=== PATIENT | female | born 1950 | race Caucasian/White ===

== ENCOUNTER 2024-11-24 12:44 | Inpatient (IN) | payer MEDICARE, SELFPAY ==
[2024-11-24] VITALS (7 sets, daily range): BP systolic 106–122; BP diastolic 66–77; PULSE 80–185; RESP 16–20; TEMP 36.7–38.3; O2SAT 95–99; BMI 38.4
--- NOTE | ~2024-11-24 | CT_ITS ---
EXAMINATION: CT brain wo con DATE: 11/25/2024 14:14 INDICATION: headache, intractable . TECHNIQUE: Computed tomography (CT) of the head was performed without intravenous contrast. The mA wa s adjusted according to patient size. Iterative reconstruction technique was employed. The dose-lengt h product was 605.33 mGy-cm. COMPARISON: None. FINDINGS: No acute intracranial hemorrhage or extra-axial fluid collection. No hydrocephalus, mass, or herniation. No acute ischemic infarct. Unremarkable dural venous sinus attenuation. No acute osseous abnormality. Pansinus mucosal thickening. The mastoid air cells are clear. Intracranial arterial calcification. Early right basal ganglia calcification. Mild chronic white momo er change IMPRESSION: No acute intracranial process. Pansinus mucoperiosteal disease. Reviewed, dictated and finalized at location K.
--- NOTE | ~2024-11-24 | XR_ITS ---
XR chest 2V 11/24/2024 14:25 Indication: Fever Procedure: 2 view chest Comparison: No prior studies for comparison. Findings: Left basilar airspace disease, compatible with pneumonia. No pleural effusion. Heart size n ormal. Right lung clear. No acute osseous abnormality. Impression: 1: Left basilar airspace disease, compatible with pneumonia. Reviewed, dictated and finalized at location A. Impression: 1: Left basilar airspace disease, compatible with pneumonia.
--- NOTE | 2024-11-24 13:09 | ECG_ITS ---
Test Date: 2024-11-24 13:11:10 Measurements Intervals [place] Rate: 184 P: 0 MI: 0 QRS: -20 QRSD: 82 T: 59 QT: 254 QTc: 444 Interpretive Statements SUPRAVENTRICULAR TACHYCARDIA MODERATE ST DEPRESSION [0.05+ mV ST DEPRESSION] No previous ECG available for comparison Electronically Signed On 11-24-2024 19:14:33 CDT by Priya Elder
--- NOTE | 2024-11-24 13:25 | ED.GENADULT ---
HPI - General Adult General Chief complaint: Fever Stated complaint: Chills, cough, high BP, fever sick since Wednesday Time Seen by Provider: 11/24/24 13:24 History of Present Illness HPI narrative: [age] old female presented to the emergency department for evaluation for increased generalized weakness and feeling ill since Wednesday. Patient reports that her symptoms started as sinus symptoms but did have some associated cough congestion and weakness. Patient denies any nausea vomiting diarrhea or abdominal pain. Patient arrived and did have a heart rate of 185 the EKG showed was SVT. Patient denies any associated chest pain. Patient did take some Desi D and [place] nighttime medication last night. Related Data Home Medications ?Medication ?Instructions ?Recorded ?Confirmed ?Last Taken ?Type atorvastatin 40 mg tablet 40 mg PO DAILY 11/24/24 11/24/24 11/23/24 History citalopram 20 mg tablet 20 mg PO DAILY 11/24/24 11/24/24 11/23/24 History levothyroxine 75 mcg tablet 75 mcg PO DAILY 11/24/24 11/24/24 11/23/24 History metoprolol succinate 25 mg 25 mg PO DAILY 11/24/24 11/24/24 11/23/24 History tablet,extended release 24 hr polyethylene glycol 3350 17 17 g PO DAILY PRN constipation 11/24/24 11/24/24 Unknown History gram/dose oral powder (Miralax) semaglutide 2 mg/dose (8 mg/3 mL) 2 mg subcut WEEKLY 11/24/24 11/24/24 11/19/24 History subcutaneous pen injector (Ozempic) spironolactone 25 mg tablet 25 mg PO DAILY 11/24/24 11/24/24 11/23/24 History torsemide 10 mg tablet 10 mg PO DAILY PRN swelling/weight 11/24/24 11/24/24 Unknown History gain Allergies Allergy/AdvReac Type Severity Reaction Status Date / Time metformin Allergy Intermediate Vomiting Verified 11/24/24 18:36 Review of Systems Review of Systems: All systems reviewed & are unremarkable except as noted in HPI and below PMFSH Family History Family History (Updated 11/24/24 @ 18:45 by Veronica Perdomo RN) Mother Cervical cancer Father Heart failure Other Cancer Social History Social History Smoking status: Former smoker Alcohol intake: current Drinks per week: 1 Substance use: never Substance use type: does not use Do You Feel Safe in your Home?: Yes Lack of Transportation: No Lack of Food: Never True Current Housing: I Have Housing Concerned About Future Housing: No Difficulty Paying Gas/Electric Bills: No Difficulty Paying for Meds: No Currently Unemployed: No Education: High School Diploma/GED Difficulty w/ Childcare or Family Care: No Spiritual care concerns: No Exam Narrative: APPEARANCE: Ill-appearing HEAD: normocephalic, atraumatic. EYES: PERRLA/EOMI, conjunctivae clear. NOSE: Normal no drainage EARS:TMS clear with good light reflex. THROAT: Pharynx clear, no exudate. NECK: Supple. No adenopathy, no masses. RESPIRATORY: Airway patent, respirations nonlabored. Clear to auscultation bilaterally, no rales, rhonchi, wheezing. CARDIOVASCULAR: Arrived in SVT converted to sinus tach and improved to normal sinus with rehydration ABDOMINAL: Soft, nontender, nondistended, normal bowel sounds MUSCULOSKELETAL: Moves all extremities. Strength/ROM intact, No edema, No calf tenderness. NEURO: Alert. Cranial nerves II through XII intact. Good gait. Good coordination SKIN: Warm, dry. Normal Color Course Vital Signs Vital signs: Vital Signs Temperature 100.9 F H 11/24/24 13:00 Pulse Rate 185 H 11/24/24 13:00 Respiratory Rate 20 11/24/24 13:00 Blood Pressure 106/71 11/24/24 13:00 Pulse Oximetry 95 11/24/24 13:00 Temperature 98.0 F 11/24/24 17:45 Pulse Rate 92 11/24/24 18:38 Respiratory Rate 20 11/24/24 18:38 Blood Pressure 119/66 11/24/24 18:38 Pulse Oximetry 97 11/24/24 18:38 Oxygen Flow Rate 2 11/24/24 13:34 Procedures Other Procedure Procedure 1: Other Procedure: Procedure Performed: Modified Valsalva maneuver to treat paroxysmal supraventricular tachycardia (SVT).? Indications: Patient presenting with symptomatic SVT (heart rate 185)? Preparation:?Baseline 12-lead ECG obtained, Patient explained the procedure and risks/benefits, and ECG monitoring initiated.? Procedure: Patient placed in semi-recumbent position.? Instructed patient to exhale forcefully against a closed airway (blowing into a 10 cc syringe) for 15 seconds.? Patient immediately repositioned supine with legs raised to 45 degrees for 15 seconds.? Patient returned to semi-recumbent position for 45 seconds.? Outcome:? Initial ECG showed SVT. After the maneuver, patient's heart rate converted to 110 and ECG showed sinus tach Patient tolerated the procedure well, no complaints. Medical Decision Making MDM Narrative Medical decision making narrative: [age] old female presents emergency department for evaluation for fever and rapid heart rate. Patient was found to be in SVT and was converted back to sinus tachycardia with a modified Valsalva. Patient was treated with a L of IV fluids and patient's heart rate continued to improve. Patient's fever was treated with p.o. Tylenol. Blood cultures were ordered. Patient has a leukocytosis of 14.3 and a stable hemoglobin of 14.1. INR is 1.0. Patient does have a creatinine of 1.17 lactic acid of 1.7. Unknown what patient's baseline creatinine is but suspect SHANTELL. With no acute elevations in T bili AST ALT or alk phos. CRP is mildly elevated at 3.1. Thyroid is normal. Patient's urine is significant for urinary tract infection but does have many squamous cells. Patient was negative for influenza RSV and for COVID. Patient's x-ray is concerning for underlying pneumonia. Patient was started on Rocephin and a azithromycin the emergency department. This will cover both the potential urinary tract infection and the pneumonia. On re-evaluation patient states she does feel improved but patient is still ill appearing. Patient was willing to stay for IV antibiotics and further rehydration. Differential Diagnosis Differential Diagnosis: SVT, sinus tachycardia, AFib, dehydration, pneumonia, urinary tract infection, COVID, RSV, influenza, fever Vital Signs Vital Signs: Vital Signs Temperature 100.9 F H 11/24/24 13:00 Pulse Rate 185 H 11/24/24 13:00 Respiratory Rate 20 11/24/24 13:00 Blood Pressure 106/71 11/24/24 13:00 Pulse Oximetry 95 11/24/24 13:00 Temperature 98.0 F 11/24/24 17:45 Pulse Rate 92 11/24/24 18:38 Respiratory Rate 20 11/24/24 18:38 Blood Pressure 119/66 11/24/24 18:38 Pulse Oximetry 97 11/24/24 18:38 Oxygen Flow Rate 2 11/24/24 13:34 Lab Data 11/24/24 13:37 11/24/24 13:37 Labs: Lab Results 11/24/24 11/24/24 11/24/24 Range/Units 13:37 13:37 13:37 WBC 14.3 H (4.5-10.0) K/mm3 RBC 4.89 (4.2-5.4) M/mm3 Hgb 14.1 (12.0-15.0) g/dL Hct 42.9 (37.0-47.0) % MCV 87.7 (80-100) fl MCH 28.8 (26-34) pg MCHC 32.9 (32-36) g/dl RDW 13.8 (11.5-14.5) % Plt Count 235 (150-375) k/mm3 MPV 10.4 (7.4-10.4) fl Immature Gran % (Auto) 0.3 (0-0.5) % Neut % (Auto) 81.5 H (45.5-73.1) % Lymph % (Auto) 12.6 L (18.3-44.2) % [place] % (Auto) 4.7 (2.6-8.5) % Eos % (Auto) 0.6 (0-4.4) % Baso % (Auto) 0.3 (0.2-1.2) % Lymph # (Auto) 1.80 (0.9-3.2) K/mm3 [place] # (Auto) 0.7 H (0.1-0.6) K/mm3 Eos # (Auto) 0.1 (0-0.3) K/mm3 Baso # (Auto) 0.1 (0.0-0.1) K/mm3 Abs Immat Gran (auto) 0.05 H (0.00-0.031) K/mm3 Absolute Neuts (auto) 11.7 H (1.3-6.7) K/mm3 Absolute Nucleated RBC 0.000 (0.0-0.012) K/mm3 Nucleated RBC % 0.0 (0.0-0.2) % PT 13.8 (11.1-14.7) Seconds INR 1.0 APTT 32.1 (22.3-36.8) Seconds Sodium 137 137 (137-145) mmol/L Potassium 4.4 4.4 (3.4-5.0) mmol/L Chloride 103 (98-107) mmol/L Carbon Dioxide (22-30) mmol/L Anion Gap (4-12) mmol/L BUN (7-17) mg/dL Creatinine (0.7-1.0) mg/dL Estim Creat Clear Calc ml/min Estimated GFR (59 - ) Glucose (65-110) mg/dL Lactic Acid (0.7-2.0) mmol/L Calcium (8.4-10.2) mg/dL Magnesium (1.6-2.3) mg/dL Total Bilirubin (0.2-1.3) mg/dL AST (14-36) U/L ALT (6-35) U/L Alkaline Phosphatase (38-126) U/L C-Reactive Protein (<1.0) mg/dL NT-Pro-B Natriuret Pep (19.9-100) pg/mL Total Protein (6.3-8.2) g/dL Albumin (3.5-5.1) g/dL TSH (Reflex) (0.465-4.68) uIU/mL Urine Color (Yellow) Urine Appearance (Clear) Urine pH (5.0-9.0) Ur Specific [place] (1.001-1.035) Urine Protein (Negative) mg/dL Urine Glucose (UA) (Negative) mg/dL Urine Ketones (Negative) mg/dL Ur Blood (Man) (Negative) Urine Nitrate (Negative) Urine Bilirubin (Negative) Urine Urobilinogen (<2.0) mg/dL Leukocyte Esterase Rfl (Negative) LOCO/UL Urine RBC (0-2) /hpf Urine WBC (0-3) /hpf Ur Squamous Epith Cells (Few) /hpf Urine Bacteria /hpf Urine Casts Influenza A (RT-PCR) (Negative) Influenza B (RT-PCR) (Negative) RSV (RT-PCR) (Negative) SARS-CoV-2 RNA (RT-PCR) (Negative) 11/24/24 11/24/24 11/24/24 Range/Units 13:37 13:37 13:37 WBC (4.5-10.0) K/mm3 RBC (4.2-5.4) M/mm3 Hgb (12.0-15.0) g/dL Hct (37.0-47.0) % MCV (80-100) fl MCH (26-34) pg MCHC (32-36) g/dl RDW (11.5-14.5) % Plt Count (150-375) k/mm3 MPV (7.4-10.4) fl Immature Gran % (Auto) (0-0.5) % Neut % (Auto) (45.5-73.1) % Lymph % (Auto) (18.3-44.2) % [place] % (Auto) (2.6-8.5) % Eos % (Auto) (0-4.4) % Baso % (Auto) (0.2-1.2) % Lymph # (Auto) (0.9-3.2) K/mm3 [place] # (Auto) (0.1-0.6) K/mm3 Eos # (Auto) (0-0.3) K/mm3 Baso # (Auto) (0.0-0.1) K/mm3 Abs Immat Gran (auto) (0.00-0.031) K/mm3 Absolute Neuts (auto) (1.3-6.7) K/mm3 Absolute Nucleated RBC (0.0-0.012) K/mm3 Nucleated RBC % (0.0-0.2) % PT (11.1-14.7) Seconds INR APTT (22.3-36.8) Seconds Sodium (137-145) mmol/L Potassium (3.4-5.0) mmol/L Chloride 103 (98-107) mmol/L Carbon Dioxide 20 L 20 L (22-30) mmol/L Anion Gap 14 H 14 H (4-12) mmol/L BUN 17 (7-17) mg/dL Creatinine (0.7-1.0) mg/dL Estim Creat Clear Calc ml/min Estimated GFR (59 - ) Glucose (65-110) mg/dL Lactic Acid (0.7-2.0) mmol/L Calcium (8.4-10.2) mg/dL Magnesium (1.6-2.3) mg/dL Total Bilirubin (0.2-1.3) mg/dL AST (14-36) U/L ALT (6-35) U/L Alkaline Phosphatase (38-126) U/L C-Reactive Protein (<1.0) mg/dL NT-Pro-B Natriuret Pep (19.9-100) pg/mL Total Protein (6.3-8.2) g/dL Albumin (3.5-5.1) g/dL TSH (Reflex) (0.465-4.68) uIU/mL Urine Color (Yellow) Urine Appearance (Clear) Urine pH (5.0-9.0) Ur Specific [place] (1.001-1.035) Urine Protein (Negative) mg/dL Urine Glucose (UA) (Negative) mg/dL Urine Ketones (Negative) mg/dL Ur Blood (Man) (Negative) Urine Nitrate (Negative) Urine Bilirubin (Negative) Urine Urobilinogen (<2.0) mg/dL Leukocyte Esterase Rfl (Negative) LOCO/UL Urine RBC (0-2) /hpf Urine WBC (0-3) /hpf Ur Squamous Epith Cells (Few) /hpf Urine Bacteria /hpf Urine Casts Influenza A (RT-PCR) (Negative) Influenza B (RT-PCR) (Negative) RSV (RT-PCR) (Negative) SARS-CoV-2 RNA (RT-PCR) (Negative) 11/24/24 11/24/24 11/24/24 Range/Units 13:37 13:37 13:37 WBC (4.5-10.0) K/mm3 RBC (4.2-5.4) M/mm3 Hgb (12.0-15.0) g/dL Hct (37.0-47.0) % MCV (80-100) fl MCH (26-34) pg MCHC (32-36) g/dl RDW (11.5-14.5) % Plt Count (150-375) k/mm3 MPV (7.4-10.4) fl Immature Gran % (Auto) (0-0.5) % Neut % (Auto) (45.5-73.1) % Lymph % (Auto) (18.3-44.2) % [place] % (Auto) (2.6-8.5) % Eos % (Auto) (0-4.4) % Baso % (Auto) (0.2-1.2) % Lymph # (Auto) (0.9-3.2) K/mm3 [place] # (Auto) (0.1-0.6) K/mm3 Eos # (Auto) (0-0.3) K/mm3 Baso # (Auto) (0.0-0.1) K/mm3 Abs Immat Gran (auto) (0.00-0.031) K/mm3 Absolute Neuts (auto) (1.3-6.7) K/mm3 Absolute Nucleated RBC (0.0-0.012) K/mm3 Nucleated RBC % (0.0-0.2) % PT (11.1-14.7) Seconds INR APTT (22.3-36.8) Seconds Sodium (137-145) mmol/L Potassium (3.4-5.0) mmol/L Chloride (98-107) mmol/L Carbon Dioxide (22-30) mmol/L Anion Gap (4-12) mmol/L BUN 17 (7-17) mg/dL Creatinine 1.17 H 1.17 H (0.7-1.0) mg/dL Estim Creat Clear Calc 47 47 ml/min Estimated GFR 45 L (59 - ) Glucose (65-110) mg/dL Lactic Acid (0.7-2.0) mmol/L Calcium (8.4-10.2) mg/dL Magnesium (1.6-2.3) mg/dL Total Bilirubin (0.2-1.3) mg/dL AST (14-36) U/L ALT (6-35) U/L Alkaline Phosphatase (38-126) U/L C-Reactive Protein (<1.0) mg/dL NT-Pro-B Natriuret Pep (19.9-100) pg/mL Total Protein (6.3-8.2) g/dL Albumin (3.5-5.1) g/dL TSH (Reflex) (0.465-4.68) uIU/mL Urine Color (Yellow) Urine Appearance (Clear) Urine pH (5.0-9.0) Ur Specific [place] (1.001-1.035) Urine Protein (Negative) mg/dL Urine Glucose (UA) (Negative) mg/dL Urine Ketones (Negative) mg/dL Ur Blood (Man) (Negative) Urine Nitrate (Negative) Urine Bilirubin (Negative) Urine Urobilinogen (<2.0) mg/dL Leukocyte Esterase Rfl (Negative) LOCO/UL Urine RBC (0-2) /hpf Urine WBC (0-3) /hpf Ur Squamous Epith Cells (Few) /hpf Urine Bacteria /hpf Urine Casts Influenza A (RT-PCR) (Negative) Influenza B (RT-PCR) (Negative) RSV (RT-PCR) (Negative) SARS-CoV-2 RNA (RT-PCR) (Negative) 11/24/24 11/24/24 11/24/24 Range/Units 13:37 13:37 13:37 WBC (4.5-10.0) K/mm3 RBC (4.2-5.4) M/mm3 Hgb (12.0-15.0) g/dL Hct (37.0-47.0) % MCV (80-100) fl MCH (26-34) pg MCHC (32-36) g/dl RDW (11.5-14.5) % Plt Count (150-375) k/mm3 MPV (7.4-10.4) fl Immature Gran % (Auto) (0-0.5) % Neut % (Auto) (45.5-73.1) % Lymph % (Auto) (18.3-44.2) % [place] % (Auto) (2.6-8.5) % Eos % (Auto) (0-4.4) % Baso % (Auto) (0.2-1.2) % Lymph # (Auto) (0.9-3.2) K/mm3 [place] # (Auto) (0.1-0.6) K/mm3 Eos # (Auto) (0-0.3) K/mm3 Baso # (Auto) (0.0-0.1) K/mm3 Abs Immat Gran (auto) (0.00-0.031) K/mm3 Absolute Neuts (auto) (1.3-6.7) K/mm3 Absolute Nucleated RBC (0.0-0.012) K/mm3 Nucleated RBC % (0.0-0.2) % PT (11.1-14.7) Seconds INR APTT (22.3-36.8) Seconds Sodium (137-145) mmol/L Potassium (3.4-5.0) mmol/L Chloride (98-107) mmol/L Carbon Dioxide (22-30) mmol/L Anion Gap (4-12) mmol/L BUN (7-17) mg/dL Creatinine (0.7-1.0) mg/dL Estim Creat Clear Calc ml/min Estimated GFR 45 L (59 - ) Glucose 131 H 131 H (65-110) mg/dL Lactic Acid 1.7 (0.7-2.0) mmol/L Calcium 9.6 9.6 (8.4-10.2) mg/dL Magnesium (1.6-2.3) mg/dL Total Bilirubin 1.0 (0.2-1.3) mg/dL AST (14-36) U/L ALT (6-35) U/L Alkaline Phosphatase (38-126) U/L C-Reactive Protein (<1.0) mg/dL NT-Pro-B Natriuret Pep (19.9-100) pg/mL Total Protein (6.3-8.2) g/dL Albumin (3.5-5.1) g/dL TSH (Reflex) (0.465-4.68) uIU/mL Urine Color (Yellow) Urine Appearance (Clear) Urine pH (5.0-9.0) Ur Specific [place] (1.001-1.035) Urine Protein (Negative) mg/dL Urine Glucose (UA) (Negative) mg/dL Urine Ketones (Negative) mg/dL Ur Blood (Man) (Negative) Urine Nitrate (Negative) Urine Bilirubin (Negative) Urine Urobilinogen (<2.0) mg/dL Leukocyte Esterase Rfl (Negative) LOCO/UL Urine RBC (0-2) /hpf Urine WBC (0-3) /hpf Ur Squamous Epith Cells (Few) /hpf Urine Bacteria /hpf Urine Casts Influenza A (RT-PCR) (Negative) Influenza B (RT-PCR) (Negative) RSV (RT-PCR) (Negative) SARS-CoV-2 RNA (RT-PCR) (Negative) 11/24/24 11/24/24 11/24/24 Range/Units 13:37 13:37 13:37 WBC (4.5-10.0) K/mm3 RBC (4.2-5.4) M/mm3 Hgb (12.0-15.0) g/dL Hct (37.0-47.0) % MCV (80-100) fl MCH (26-34) pg MCHC (32-36) g/dl RDW (11.5-14.5) % Plt Count (150-375) k/mm3 MPV (7.4-10.4) fl Immature Gran % (Auto) (0-0.5) % Neut % (Auto) (45.5-73.1) % Lymph % (Auto) (18.3-44.2) % [place] % (Auto) (2.6-8.5) % Eos % (Auto) (0-4.4) % Baso % (Auto) (0.2-1.2) % Lymph # (Auto) (0.9-3.2) K/mm3 [place] # (Auto) (0.1-0.6) K/mm3 Eos # (Auto) (0-0.3) K/mm3 Baso # (Auto) (0.0-0.1) K/mm3 Abs Immat Gran (auto) (0.00-0.031) K/mm3 Absolute Neuts (auto) (1.3-6.7) K/mm3 Absolute Nucleated RBC (0.0-0.012) K/mm3 Nucleated RBC % (0.0-0.2) % PT (11.1-14.7) Seconds INR APTT (22.3-36.8) Seconds Sodium (137-145) mmol/L Potassium (3.4-5.0) mmol/L Chloride (98-107) mmol/L Carbon Dioxide (22-30) mmol/L Anion Gap (4-12) mmol/L BUN (7-17) mg/dL Creatinine (0.7-1.0) mg/dL Estim Creat Clear Calc ml/min Estimated GFR (59 - ) Glucose (65-110) mg/dL Lactic Acid (0.7-2.0) mmol/L Calcium (8.4-10.2) mg/dL Magnesium (1.6-2.3) mg/dL Total Bilirubin 1.0 (0.2-1.3) mg/dL AST 25 25 (14-36) U/L ALT 25 25 (6-35) U/L Alkaline Phosphatase 71 (38-126) U/L C-Reactive Protein (<1.0) mg/dL NT-Pro-B Natriuret Pep (19.9-100) pg/mL Total Protein (6.3-8.2) g/dL Albumin (3.5-5.1) g/dL TSH (Reflex) (0.465-4.68) uIU/mL Urine Color (Yellow) Urine Appearance (Clear) Urine pH (5.0-9.0) Ur Specific [place] (1.001-1.035) Urine Protein (Negative) mg/dL Urine Glucose (UA) (Negative) mg/dL Urine Ketones (Negative) mg/dL Ur Blood (Man) (Negative) Urine Nitrate (Negative) Urine Bilirubin (Negative) Urine Urobilinogen (<2.0) mg/dL Leukocyte Esterase Rfl (Negative) LOCO/UL Urine RBC (0-2) /hpf Urine WBC (0-3) /hpf Ur Squamous Epith Cells (Few) /hpf Urine Bacteria /hpf Urine Casts Influenza A (RT-PCR) (Negative) Influenza B (RT-PCR) (Negative) RSV (RT-PCR) (Negative) SARS-CoV-2 RNA (RT-PCR) (Negative) 11/24/24 11/24/24 11/24/24 Range/Units 13:37 13:37 13:37 WBC (4.5-10.0) K/mm3 RBC (4.2-5.4) M/mm3 Hgb (12.0-15.0) g/dL Hct (37.0-47.0) % MCV (80-100) fl MCH (26-34) pg MCHC (32-36) g/dl RDW (11.5-14.5) % Plt Count (150-375) k/mm3 MPV (7.4-10.4) fl Immature Gran % (Auto) (0-0.5) % Neut % (Auto) (45.5-73.1) % Lymph % (Auto) (18.3-44.2) % [place] % (Auto) (2.6-8.5) % Eos % (Auto) (0-4.4) % Baso % (Auto) (0.2-1.2) % Lymph # (Auto) (0.9-3.2) K/mm3 [place] # (Auto) (0.1-0.6) K/mm3 Eos # (Auto) (0-0.3) K/mm3 Baso # (Auto) (0.0-0.1) K/mm3 Abs Immat Gran (auto) (0.00-0.031) K/mm3 Absolute Neuts (auto) (1.3-6.7) K/mm3 Absolute Nucleated RBC (0.0-0.012) K/mm3 Nucleated RBC % (0.0-0.2) % PT (11.1-14.7) Seconds INR APTT (22.3-36.8) Seconds Sodium (137-145) mmol/L Potassium (3.4-5.0) mmol/L Chloride (98-107) mmol/L Carbon Dioxide (22-30) mmol/L Anion Gap (4-12) mmol/L BUN (7-17) mg/dL Creatinine (0.7-1.0) mg/dL Estim Creat Clear Calc ml/min Estimated GFR (59 - ) Glucose (65-110) mg/dL Lactic Acid (0.7-2.0) mmol/L Calcium (8.4-10.2) mg/dL Magnesium (1.6-2.3) mg/dL Total Bilirubin (0.2-1.3) mg/dL AST (14-36) U/L ALT (6-35) U/L Alkaline Phosphatase 71 (38-126) U/L C-Reactive Protein 3.1 H (<1.0) mg/dL NT-Pro-B Natriuret Pep (19.9-100) pg/mL Total Protein 7.3 7.0 (6.3-8.2) g/dL Albumin 4.5 4.5 (3.5-5.1) g/dL TSH (Reflex) 2.720 (0.465-4.68) uIU/mL Urine Color (Yellow) Urine Appearance (Clear) Urine pH (5.0-9.0) Ur Specific [place] (1.001-1.035) Urine Protein (Negative) mg/dL Urine Glucose (UA) (Negative) mg/dL Urine Ketones (Negative) mg/dL Ur Blood (Man) (Negative) Urine Nitrate (Negative) Urine Bilirubin (Negative) Urine Urobilinogen (<2.0) mg/dL Leukocyte Esterase Rfl (Negative) LOCO/UL Urine RBC (0-2) /hpf Urine WBC (0-3) /hpf Ur Squamous Epith Cells (Few) /hpf Urine Bacteria /hpf Urine Casts Influenza A (RT-PCR) Negative (Negative) Influenza B (RT-PCR) Negative (Negative) RSV (RT-PCR) Negative (Negative) SARS-CoV-2 RNA (RT-PCR) Negative (Negative) 11/24/24 11/24/24 Range/Units 13:41 15:23 WBC (4.5-10.0) K/mm3 RBC (4.2-5.4) M/mm3 Hgb (12.0-15.0) g/dL Hct (37.0-47.0) % MCV (80-100) fl MCH (26-34) pg MCHC (32-36) g/dl RDW (11.5-14.5) % Plt Count (150-375) k/mm3 MPV (7.4-10.4) fl Immature Gran % (Auto) (0-0.5) % Neut % (Auto) (45.5-73.1) % Lymph % (Auto) (18.3-44.2) % [place] % (Auto) (2.6-8.5) % Eos % (Auto) (0-4.4) % Baso % (Auto) (0.2-1.2) % Lymph # (Auto) (0.9-3.2) K/mm3 [place] # (Auto) (0.1-0.6) K/mm3 Eos # (Auto) (0-0.3) K/mm3 Baso # (Auto) (0.0-0.1) K/mm3 Abs Immat Gran (auto) (0.00-0.031) K/mm3 Absolute Neuts (auto) (1.3-6.7) K/mm3 Absolute Nucleated RBC (0.0-0.012) K/mm3 Nucleated RBC % (0.0-0.2) % PT (11.1-14.7) Seconds INR APTT (22.3-36.8) Seconds Sodium (137-145) mmol/L Potassium (3.4-5.0) mmol/L Chloride (98-107) mmol/L Carbon Dioxide (22-30) mmol/L Anion Gap (4-12) mmol/L BUN (7-17) mg/dL Creatinine (0.7-1.0) mg/dL Estim Creat Clear Calc ml/min Estimated GFR (59 - ) Glucose (65-110) mg/dL Lactic Acid (0.7-2.0) mmol/L Calcium (8.4-10.2) mg/dL Magnesium 1.8 (1.6-2.3) mg/dL Total Bilirubin (0.2-1.3) mg/dL AST (14-36) U/L ALT (6-35) U/L Alkaline Phosphatase (38-126) U/L C-Reactive Protein (<1.0) mg/dL NT-Pro-B Natriuret Pep 178 H (19.9-100) pg/mL Total Protein (6.3-8.2) g/dL Albumin (3.5-5.1) g/dL TSH (Reflex) (0.465-4.68) uIU/mL Urine Color Yellow (Yellow) Urine Appearance Cloudy H (Clear) Urine pH 5.5 (5.0-9.0) Ur Specific [place] 1.025 (1.001-1.035) Urine Protein Trace (Negative) mg/dL Urine Glucose (UA) Negative (Negative) mg/dL Urine Ketones Trace H (Negative) mg/dL Ur Blood (Man) Negative (Negative) Urine Nitrate Negative (Negative) Urine Bilirubin Negative (Negative) Urine Urobilinogen 1.0 (<2.0) mg/dL Leukocyte Esterase Rfl 3+ H (Negative) LOCO/UL Urine RBC 0-2 (0-2) /hpf Urine WBC 11-20 H (0-3) /hpf Ur Squamous Epith Cells Many H (Few) /hpf Urine Bacteria 4+ H /hpf Urine Casts 3-5 Influenza A (RT-PCR) (Negative) Influenza B (RT-PCR) (Negative) RSV (RT-PCR) (Negative) SARS-CoV-2 RNA (RT-PCR) (Negative) Imaging Data Radiologist's impression: Impressions Chest X-Ray 11/24/24 14:26 Impression: 1: Left basilar airspace disease, compatible with pneumonia. Critical Care Time Critical Care Time Critical Care Time: Yes Total Critical Care Time: 35 Discharge Plan Discharge Clinical Impression: SHANTELL (acute kidney injury), Acute UTI, Sustained SVT Pneumonia Qualifiers: Pneumonia type: due to unspecified organism Laterality: left Lung location: lower lobe of lung Qualified Code(s): J18.9 - Pneumonia, unspecified organism Patient Disposition: Still a Patient Condition: Serious
[2024-11-24] MEDS: SODIUM CHLORIDE 0.9% IV 1,000 ML 999 ML IV CONT (13:27)
[2024-11-24] MEDS: ACETAMINOPHEN 500 MG TABLET 1000 MG PO (13:29)
--- NOTE | 2024-11-24 13:30 | PC.NURSE ---
Dr. Thompson performed valsa maneuver. Pt tolerated well HR decreased to 111
--- NOTE | 2024-11-24 13:34 | ECG_ITS ---
Test Date: 2024-11-24 13:37:54 Measurements Intervals [place] Rate: 113 P: 11 MI: 129 QRS: -11 QRSD: 93 T: 43 QT: 311 QTc: 427 Interpretive Statements SINUS TACHYCARDIA ABNORMAL RHYTHM ECG Compared to ECG 11/24/2024 13:11:10 Supraventricular tachycardia no longer present ST (T wave) deviation no longer present Electronically Signed On 11-24-2024 19:14:52 CDT by Priya Elder
[2024-11-24 13:50] LABS: Basophils Absolute Auto 0.1 K/mm3 (0.0-0.1); Basophils Percent Auto 0.3 % (0.2-1.2); Eosinophils Absolute Auto 0.1 K/mm3 (0-0.3); Eosinophils Percent Auto 0.6 % (0-4.4); Hematocrit 42.9 % (37.0-47.0); Hemoglobin 14.1 g/dL (12.0-15.0); Immature Granulocyte Absolute 0.05 K/mm3 (0.00-0.031); Immature Granulocyte Percent A 0.3 % (0-0.5); Lymphocytes Percent Auto 12.6 % (18.3-44.2); Mean Corpuscular HGB Conc 32.9 g/dl (32-36); Mean Corpuscular Hemoglobin 28.8 pg (26-34); Mean Corpuscular Volume 87.7 fl (80-100); Mean Platelet Volume 10.4 fl (7.4-10.4); Monocytes Absolute Auto 0.7 K/mm3 (0.1-0.6); Monocytes Percent Auto 4.7 % (2.6-8.5); Neutrophils Absolute Auto 11.7 K/mm3 (1.3-6.7); Neutrophils Percent Auto 81.5 % (45.5-73.1); Platelet Count Result 235 k/mm3 (150-375); Red Blood Count 4.89 M/mm3 (4.2-5.4); Red Cell Distribution Width 13.8 % (11.5-14.5); White Blood Count 14.3 K/mm3 (4.5-10.0)
[2024-11-24 14:01] LABS: Prothrombin Time 13.8 Seconds (11.1-14.7)
[2024-11-24 14:01] LABS: Magnesium 1.8 mg/dL (1.6-2.3)
[2024-11-24 14:02] LABS: Partial Thromboplastin Time 32.1 Seconds (22.3-36.8)
[2024-11-24 14:03] LABS: Lactic Acid Reflex 1.7 mmol/L (0.7-2.0)
[2024-11-24 14:05] LABS: Alanine Aminotransferase 25 U/L (6-35); Albumin Level 4.5 g/dL (3.5-5.1); Alkaline Phosphatase 71 U/L (38-126); Anion Gap 14 mmol/L (4-12); Aspartate Amino Transferase 25 U/L (14-36); Blood Urea Nitrogen 17 mg/dL (7-17); CRP 3.1 mg/dL (<1.0); Calcium 9.6 mg/dL (8.4-10.2); Carbon Dioxide 20 mmol/L (22-30); Chloride 103 mmol/L (98-107); Estimated CRCL calculation 47 ml/min; Estimated Glomerular Filt Rate 45; Glucose 131 mg/dL (65-110); Potassium 4.4 mmol/L (3.4-5.0); Sodium 137 mmol/L (137-145)
[2024-11-24 14:17] LABS: NT Pro B Type Natriuretic Pept 178 pg/mL (19.9-100)
[2024-11-24 14:32] LABS: Influenza A QL RT-PCR Negative (Negative); Influenza B QL RT-PCR Negative (Negative); RSV RNA, RT-PCR Negative (Negative); SARS-CoV-2 RNA PCR Negative (Negative)
[2024-11-24 14:46] LABS: Anion Gap 14 mmol/L (4-12); Blood Urea Nitrogen 17 mg/dL (7-17); Carbon Dioxide 20 mmol/L (22-30); Chloride 103 mmol/L (98-107); Estimated CRCL calculation 47 ml/min; Estimated Glomerular Filt Rate 45; Glucose 131 mg/dL (65-110); Potassium 4.4 mmol/L (3.4-5.0); Sodium 137 mmol/L (137-145)
[2024-11-24 14:47] LABS: Alanine Aminotransferase 25 U/L (6-35); Albumin Level 4.5 g/dL (3.5-5.1); Alkaline Phosphatase 71 U/L (38-126); Aspartate Amino Transferase 25 U/L (14-36); Calcium 9.6 mg/dL (8.4-10.2); Total Protein 7.3 g/dL (6.3-8.2)
--- NOTE | 2024-11-24 15:28 | PC.NURSE ---
1515: Pt ambulated to BR with steady gait. UA obtained. Pt states she is feeling much better
[2024-11-24 15:32] LABS: Add Urine Microscopic? YES; Appearance Urine Cloudy (Clear); Bacteria Urine 4+ /hpf; Bilirubin Urine Negative (Negative); Blood Urine Negative (Negative); Color Urine Yellow (Yellow); Glucose Urine UA Negative (Negative); Ketones Urine Trace mg/dL (Negative); Leukocyte Esterase Ur 3+ LEU/UL (Negative); Nitrate Urine Negative (Negative); Protein Urine Trace mg/dL (Negative); RBC Urine 0-2 /hpf (0-2); Specific Grav Ur 1.025 (1.001-1.035); Squamous Epithelial Cell Urine Many /hpf (Few); pH Urine 5.5 (5.0-9.0)
[2024-11-24] MEDS: AZITHROMYCIN 500 MG/NS 250 ML 500 MG/250 ML BAG 250 MG IVPB (17:44)
--- NOTE | 2024-11-24 18:28 | PM.IMHP ---
H&P: HPI History of Present Illness Date/Time: 11/24/24 18:28 Chief Complaint: Weakness, General Malaise Narrative: 74 y/o F with PMH of CHF, HLD, HTN, sleep apnea, diabetes, hypothyroidism, and depression presents here with generalized weakness and general malaise. The patient presents here from home on 11/24 for further evaluation of general malaise and generalized weakness. She reports that she began to feel unwell on Wednesday, 11/21. She reports it was initially sinus symptoms (i.e. congestion, rhinorrhea), scant productive cough, and the generalized weakness. She has taken allergy medications and Esther-Bend without relief. She denies associated nausea, vomiting, diarrhea, abdominal pain, chest pain, urinary symptoms, or shortness of breath. She arrived to the emergency department in SVT in the 180s and with a low-grade fever at 100.9? F. She was able to be converted to sinus rhythm via a modified Valsalva maneuver. She reports no previous history of SVT or dysrhythmia. Initial VS at presentation: 100.9 ? F, HR 185, R 20, 106/71, and 95% on RA. ED workup showed: WBC 14.3, no anemia, normal coags, creatinine 1.17 and GFR 45 (no previous available for comparison), glucose 131, lactic 1.7, BNP 178, CRP 3.1, and UA equivocal (infection versus contaminant). Viral PCR negative. CXR showed a left basilar airspace disease compatible with pneumonia. Initial EKG showed SVT, rate 184, moderate ST depression. Repeat EKG post modified Valsalva showed sinus tachycardia, rate 113, ST deviation no longer present. Awaiting formal reads for EKGs. Review of Systems Review of Systems: All systems reviewed & are unremarkable except as noted in HPI and below PMFSH Past Medical History Medical History History of postoperative nausea and vomiting Depression Hypothyroidism DM2 (diabetes mellitus, type 2) Sleep apnea HTN (hypertension) HLD (hyperlipidemia) CHF (congestive heart failure) Surgical History Surgical History History of surgery on lower extremity jeb placed, right lower extremity History of sinus surgery History of hysterectomy Family History Family History Mother Cervical cancer Father Heart failure Other Cancer Social History Social History Smoking status: Former smoker Alcohol intake: current Drinks per week: 1 Substance use: never Substance use type: does not use Do You Feel Safe in your Home?: Yes Lack of Transportation: No Lack of Food: Never True Current Housing: I Have Housing Concerned About Future Housing: No Difficulty Paying Gas/Electric Bills: No Difficulty Paying for Meds: No Currently Unemployed: No Education: High School Diploma/GED Difficulty w/ Childcare or Family Care: No Spiritual care concerns: No Meds Home Medications and Allergies Home Medications ?Medication ?Instructions ?Recorded ?Confirmed ?Type atorvastatin 40 mg tablet 40 mg PO DAILY 11/24/24 11/24/24 History citalopram 20 mg tablet 20 mg PO DAILY 11/24/24 11/24/24 History levothyroxine 75 mcg tablet 75 mcg PO DAILY 11/24/24 11/24/24 History metoprolol succinate 25 mg 25 mg PO DAILY 11/24/24 11/24/24 History tablet,extended release 24 hr polyethylene glycol 3350 17 17 g PO DAILY PRN constipation 11/24/24 11/24/24 History gram/dose oral powder (Miralax) semaglutide 2 mg/dose (8 mg/3 mL) 2 mg subcut WEEKLY 11/24/24 11/24/24 History subcutaneous pen injector (Ozempic) spironolactone 25 mg tablet 25 mg PO DAILY 11/24/24 11/24/24 History torsemide 10 mg tablet 10 mg PO DAILY PRN swelling/weight 11/24/24 11/24/24 History gain Allergies Allergy/AdvReac Type Severity Reaction Status Date / Time metformin Allergy Intermediate Vomiting Verified 11/24/24 18:36 Vital Signs Vital Signs - 24 hr 11/24/24 13:00 11/24/24 13:34 11/24/24 17:45 Temperature 100.9 F H 98.0 F Pulse Rate 185 H 105 H Respiratory Rate 20 16 18 Blood Pressure 106/71 122/77 Pulse Oximetry 95 99 98 Oxygen Flow Rate 2 Exam Const: General: comfortable and no acute distress Other: , female, elderly, mildly ill-appearing HENMT: Face/Nose/Sinus: Normal nares present Mouth: Yes moist mucous membranes Eyes: General: appearance normal, both eyes and all related structures Sclera: sclerae normal Pupils: Equal, round and reactive pupils present EOM: EOMs intact bilaterally Resp: Effort & Inspection: normal respiratory effort Other: Crackles in the left lung base, no other adventitious lung sounds. Cardio: Rate: regular rate Rhythm: regular rhythm Other: S1-S2 present without murmur, rub, ectopy GI: Other: Abdomen soft, nondistended, nontender. Normoactive bowel sounds in all quadrants. Skin: General skin exam: normal color and no rashes or lesions noted Wounds: no wounds Neuro: Speech: normal speech Motor exam (neuro): 5/5 motor strength present throughout Sensory Exam: normal sensation Other: A&O x4 Extrem: General: normal to inspection Psych: Mental Status: mental status grossly normal Affect: normal affect Other: Good insight judgment, pleasant H&P: Results Labs Labs: Short CBC 11/24/24 Range/Units 13:37 WBC 14.3 H (4.5-10.0) K/mm3 Hgb 14.1 (12.0-15.0) g/dL Hct 42.9 (37.0-47.0) % Plt Count 235 (150-375) k/mm3 BMP 11/24/24 11/24/24 11/24/24 13:37 13:37 13:37 Sodium 137 137 Potassium 4.4 4.4 Chloride 103 Carbon Dioxide BUN Creatinine Glucose Calcium 11/24/24 11/24/24 11/24/24 13:37 13:37 13:37 Sodium Potassium Chloride 103 Carbon Dioxide 20 L 20 L BUN 17 17 Creatinine 1.17 H Glucose Calcium 11/24/24 11/24/24 11/24/24 13:37 13:37 13:37 Sodium Potassium Chloride Carbon Dioxide BUN Creatinine 1.17 H Glucose 131 H 131 H Calcium 9.6 9.6 Liver Function 11/24/24 11/24/24 11/24/24 Range/Units 13:37 13:37 13:37 Total Bilirubin 1.0 1.0 (0.2-1.3) mg/dL AST 25 25 (14-36) U/L ALT 25 (6-35) U/L Alkaline Phosphatase (38-126) U/L Albumin (3.5-5.1) g/dL 11/24/24 11/24/24 11/24/24 Range/Units 13:37 13:37 13:37 Total Bilirubin (0.2-1.3) mg/dL AST (14-36) U/L ALT 25 (6-35) U/L Alkaline Phosphatase 71 71 (38-126) U/L Albumin 4.5 4.5 (3.5-5.1) g/dL Urine 11/24/24 Range/Units 15:23 Urine Color Yellow (Yellow) Urine Appearance Cloudy H (Clear) Urine pH 5.5 (5.0-9.0) Ur Specific [place] 1.025 (1.001-1.035) Urine Protein Trace (Negative) mg/dL Urine Glucose (UA) Negative (Negative) mg/dL Assessment and Plan Assessment and plan (1) Sepsis: Qualifiers: Sepsis acute organ dysfunction status: without acute organ dysfunction Sepsis type: sepsis due to unspecified organism Qualified Code(s): A41.9 - Sepsis, unspecified organism Code(s): A41.9 - Sepsis, unspecified organism Status: Acute Assessment and Plan: - meets SIRS criteria: HR, WBC, temp ill. No hypotension or hypoxia. - lactic acid: 1.7 - 30 mL/kg = 3L, given 1L in ED. Slow transfusion of 2 L at 250 mL/hour. Monitor toleration. - suspected source: Pneumonia, possible UTI - started on ceftriaxone and azithromycin 11/24 - blood cultures drawn on 11/24 - monitor hemodynamic stability and O2 saturation (2) Pneumonia: Qualifiers: Laterality: left Lung location: lower lobe of lung Pneumonia type: due to unspecified organism Qualified Code(s): J18.9 - Pneumonia, unspecified organism Code(s): J18.9 - Pneumonia, unspecified organism Status: Acute Assessment and Plan: - CXR: Left basilar airspace disease, compatible with pneumonia. - started on CAP tx: Ceftriaxone and azithromycin on 11/24 - Viral PCR negative - supportive care: Mucinex abbie, Tylenol p.r.n., Tessalon Perles p.r.n., lozenge p.r.n. - monitor O2 saturation. May use supplemental oxygen to maintain O2 sat greater than 92%, wean as tolerated. (3) Acute UTI: Code(s): N39.0 - Urinary tract infection, site not specified Status: Suspected Assessment and Plan: - UA showed 3+ leuks, 11-20 WBC, 4+ bacteria. However had many epithelial cells. Contaminant versus infection? - UC pending, follow - no previous micro available for review - started on Ceftriaxone on 5/2 - IV fluids - may have mild SHANTELL, no previous renal function available to compare. Monitor. (4) Sustained SVT: Code(s): I47.10 - Supraventricular tachycardia, unspecified Status: Acute Assessment and Plan: - initial EKG showed SVT with moderate ST depression. Patient was converted to sinus tachycardia with a modified Valsalva maneuver in the ER. Repeat EKG showed sinus tach and resolution of ST depression. Awaiting formal reads of EKGs. - magnesium 1.8 - telemetry monitoring - consider Holter monitor at discharge to monitor for recurrent SVT episodes (5) DM2 (diabetes mellitus, type 2): Qualifiers: Diabetes mellitus custodial insulin use: without roving can tender use Diabetes mellitus complication status: without complication Qualified Code(s): E11.9 - Type 2 diabetes mellitus without complications Code(s): E11.9 - Type 2 diabetes mellitus without complications Status: Chronic Assessment and Plan: - hypoglycemia protocol - POC blood glucose ACHS - home medication: Hold Ozempic (NF). - correct regimen ordered - high dose TIDWM, based off BMI - A1C ordered (6) HTN (hypertension): Qualifiers: Hypertension type: primary hypertension Qualified Code(s): I10 - Essential (primary) hypertension Code(s): I10 - Essential (primary) hypertension Status: Chronic Assessment and Plan: - chronic, currently 119/66 - continue home medications: Torsemide, spironolactone, metoprolol - monitor Plan Diet: Heart healthy GI Prophylaxis: Not currently indicated DVT Prophylaxis: Lovenox SQ IV fluids: LR at 250 mL/hour x1 L Lines/Tubes: Peripheral IV Code Status: Full code Quality VTE Prophylaxis VTE prophylaxis: pharmacologic ordered Hospitalist [facility] Advance Care Plan I have confirmed that the patient's Advanced Care Plan is present, code status is documented, or surrogate decision maker is listed in patient medical record.: Yes Medication Reconciliation I have utilized all available resources to obtain, update and review the patients current medications (includes all prescriptions, OTC, herbals, cannabis, and nutritional supplements).: Yes
--- NOTE | 2024-11-24 18:30 | ADMGEN ---
This patient, Talia Cox, was admitted to Medical Room 246-01. Patient/family oriented to hospital policies and general routines including ID bracelet, bed and alarms, visiting hours, pain management, procedures, bathroom and other care routines, personal items, smoking policy, room service/diet, and visiting hours. Information on how to activate the Rapid Response Team has been discussed. Patient/Family are encouraged to report perceived risks to care and to ask questions if they do not understand what they are told or what they should do.
[2024-11-24] MEDS: LACTATED RINGERS 1,000 ML 250 ML IV CONT (18:52)
[2024-11-24] MEDS: KETOROLAC 30 MG/ML VIAL (*BKC) IV PUSH (21:06)
[2024-11-24] MEDS: ACETAMINOPHEN 325 MG TABLET 650 MG PO (21:07)
[2024-11-24] MEDS: guaiFENesin 12 HR 600 MG TABCR PO (21:07)
[2024-11-24] MEDS: diphenhydrAMINE HCl INJ 50 MG/ML VIAL 25 MG IV PUSH (21:07)
[2024-11-24] MEDS: TORSEMIDE 10 MG TABLET PO (21:08)
[2024-11-25] VITALS (10 sets, daily range): BP systolic 107–122; BP diastolic 61–77; PULSE 67–85; RESP 16–18; TEMP 36.6–37.2; O2SAT 96–98
[2024-11-25 05:15] LABS: Basophils Percent Auto 0.2 % (0.2-1.2); Eosinophils Absolute Auto 0.4 K/mm3 (0-0.3); Eosinophils Percent Auto 3.9 % (0-4.4); Hematocrit 37.6 % (37.0-47.0); Hemoglobin 12.4 g/dL (12.0-15.0); Immature Granulocyte Absolute 0.05 K/mm3 (0.00-0.031); Immature Granulocyte Percent A 0.5 % (0-0.5); Lymphocytes Absolute Auto 2.05 K/mm3 (0.9-3.2); Lymphocytes Percent Auto 22.2 % (18.3-44.2); Mean Corpuscular Volume 88.1 fl (80-100); Mean Platelet Volume 9.9 fl (7.4-10.4); Monocytes Absolute Auto 0.3 K/mm3 (0.1-0.6); Monocytes Percent Auto 3.7 % (2.6-8.5); Neutrophils Absolute Auto 6.4 K/mm3 (1.3-6.7); Neutrophils Percent Auto 69.5 % (45.5-73.1); Platelet Count Result 182 k/mm3 (150-375); Red Blood Count 4.27 M/mm3 (4.2-5.4); Red Cell Distribution Width 13.8 % (11.5-14.5); White Blood Count 9.2 K/mm3 (4.5-10.0)
[2024-11-25 05:26] LABS: Alanine Aminotransferase 20 U/L (6-35); Albumin Level 3.5 g/dL (3.5-5.1); Alkaline Phosphatase 51 U/L (38-126); Anion Gap 7 mmol/L (4-12); Aspartate Amino Transferase 21 U/L (14-36); Blood Urea Nitrogen 17 mg/dL (7-17); Calcium 8.6 mg/dL (8.4-10.2); Carbon Dioxide 25 mmol/L (22-30); Chloride 108 mmol/L (98-107); Estimated CRCL calculation 45 ml/min; Estimated Glomerular Filt Rate 43; Glucose 105 mg/dL (65-110); Potassium 3.6 mmol/L (3.4-5.0); Sodium 140 mmol/L (137-145)
[2024-11-25 05:34] LABS: Hemoglobin A1C 5.7 % (<5.7)
[2024-11-25] MEDS: LEVOTHYROXINE SODIUM 75 MCG TABLET PO (06:29)
[2024-11-25 07:54] LABS: Glucose Point of Care 117 mg/dl (65-105)
[2024-11-25] MEDS: TORSEMIDE 10 MG TABLET PO (09:41)
[2024-11-25] MEDS: ATORVASTATIN 40 MG TABLET PO (09:42)
[2024-11-25] MEDS: guaiFENesin 12 HR 600 MG TABCR PO ×2 (09:42→20:40)
[2024-11-25] MEDS: ENOXAPARIN 40 MG/0.4 ML SYRINGE SUB-Q (09:42)
[2024-11-25] MEDS: SPIRONOLACTONE 25 MG TABLET PO (09:42)
[2024-11-25] MEDS: CITALOPRAM HYDROBROMIDE 20 MG TABLET PO (09:42)
[2024-11-25] MEDS: BENZONATATE 100 MG CAPSULE PO (09:42)
[2024-11-25] MEDS: METOPROLOL SUCCINATE EXT REL 25 MG TABCR PO (09:42)
[2024-11-25] MEDS: ACETAMINOPHEN 325 MG TABLET 650 MG PO (09:47)
[2024-11-25] MEDS: POTASSIUM CHLORIDE 20 MEQ PACKET (FOR LIQUID) 40 MEQ PO (10:11)
[2024-11-25 11:48] LABS: Glucose Point of Care 104 mg/dl (65-105)
--- OUTSIDE RECORDS SUMMARY | 2024-11-25 13:28 | XMS_ITS | Encounter Summary ---
Author Organization [facility] Address Formerly [facility] [place] [address] Care Team Providers Care Dryer And Washer Mechanic Name Role Phone Jose Alejandro Hartmann MD Unavailable Russ John DPKermit Unavailable [phone] Lucio Joe MD Unavailable [phone] Gayla Tellez MD Unavailable [phone] Gayla Tellez MD Primary Care Provider + Shazia Valenzuela PA-C Unavailable [phone] Shazia Valenzuela PA-C Primary Care Provider [phone] Encounter Details Date Type Department Care Team (Late st Contact Info) Description 06/06/[address] [facility] Conversion Shazia Valenzuela PA-C [address] [facility] [address] [place] [address] Social History Tobacco Use Types Packs/Day Years Used Date Smoking Tobacco: Former AUDIT-C Answer Date Recorded Frequency of Alcohol Consumption Never 06/08/2018 Average Number of Drinks Not on file 018 Frequency of Binge Drinking Not on file 05/26 Comments Unknown Sex and Gender Information Value Date Recorded Sex Assigned at Not on file Legal Sex Female 11:38 PM CDT Gender Identity Not on file Sexual Orientation Not on file documented as of this encounter Functional Status documented as of this encounter Miscellaneous Notes * Letter - Shazia Valenzuela PA-C - 06/06/2018 12:00 AM CST Jun 06, 2018 Talia Villalobossworth 1950 We have made several attempts to contact you regarding the following: [] Lab Results [x] Mammogram [] ER Visit [] X- RAY [] PAP Results [] OTHER: Please contact the office as soon as possible for the results of these test. Thank you, Shazia RM OTIONAL ADVERTISING ASSISTANT documented in this encounter Plan of Treatment Upcoming Encounters Date Type Department Care Team (Late st Contact Info) Description 02/07/2025 11:20 AM CDT Office Visit [address] [place] [address] Shazia Valenzuela PA-C [address] [facility] [address] [place], [place] [address] documented as of this encounter Visit Diagnoses Not on filedocumented in this encounter Additional Health Concerns Infection Onset Date Last Indicated Resolved Time COVID-19 Rule Out 11/30/2023 11/30/2023 11/30/2023 3:22 PM CDT documented as of this encounter Care Teams Dryer And Washer Mechanic Relationship Specialty Start Date End Date Gayla Tellez MD [address] [place] [address] PCP - General FAMILY PRACTICE 07/08/22 02/24/23 Shazia Valenzuela PA-C [address] [facility] [address] [place] [address] PCP - General PHYSICIAN CODE ENFORCEMENT INSPECTOR 02/25/23 Jose Alejandro Hartmann MD [address] [facility] [address] [place] [address] Consulting Physician GASTROENTEROLOGY 07/10/18 Russ John DPM [address] [facility] [address] [place] [address] Referring Physician PODIATRY/SURGERY 05/25/20 Lucio Joe MD [address] [place] [address] CARDIOVASCULAR DISEASE 10/03/20 Gayla Tellez MD [address] [place] [address] FAMILY PRACTICE 07/08/22 07/08/22 Shazia Valenzuela PA-C [address] [place] [address], [address] [place] [address] Physician Parcel Post Order Clerk PHYSICIAN CODE ENFORCEMENT INSPECTOR 02/25/23 Dr. Ahumada DERMATOLOGY 07/10/18 Dr. Cruz CHIROPRACTIC 07/10/18 Violette Chandler Linen Room Supervisor 02/14/22 documented as of this encounter
--- OUTSIDE RECORDS SUMMARY | 2024-11-25 13:28 | XMS_ITS | Encounter Summary ---
Author Organization [facility] Address [facility] [place] [address] Care Team Providers Care Microbiology Soil Scientist Name Role Phone Jose Alejandro Hartmann MD Unavailable Russ John DPM Unavailable [phone] Lucio Joe MD Unavailable [phone] Shazia Valenzuela PA-C Unavailable [phone] Shazia Valenzuela PA-C Primary Care Provider [phone] Encounter Details Date Type Department Care Team (Latest Contact Info) Description 06/06/2024 Vilma Message Enc [facility] Multispecialty Care - [address] [id number] Vil[facility] Provider appointment rescheduled Social History Tobacco Use Types Packs/Day Years Used Date Smoking Tobacco: Former Cigarettes 0.1 3 1 968 - 1971 Smokeless Tobacco: Former Alcohol Use Standard Drinks/Week Comments No 0 (1 standard drink = 0.6 oz pur e alcohol) AUDIT-C Answer Date Recorded Frequency of Alcohol Consumption Never 06/08/2018 Average Number of Drinks Not on file 018 Frequency of Binge Drinking Not on file 05/26 PHQ-2 Answer Date Recorded Patient Health Questionnaire-2 Score 0 11/30/2023 Comments No Sex and Gender Information Value Date Recorded Sex Assigned at Not on file Legal Sex Female 11:38 PM CDT Gender Identity Not on file Sexual Orientation Not on file documented as of this encounter Plan of Treatment Upcoming Encounters Date Type Department Care Team (Late st Contact Info) Description 02/07/2025 11:20 AM CDT Office Visit [facility] [address] [place] [address] Shazia Valenzuela PA-C [address] [facility] [address] [place] [address] documented as of this encounter Visit Diagnoses Not on filedocumented in this encounter Additional Health Concerns Assessment Noted Time PHQ-9 Depression Total Score: 1 11/01/19 22 11:11 AM CDT documented as of this encounter Care Teams Microbiology Soil Scientist Relationship Specialty Start Date End Date Shazia Valenzuela PA-C [address] [facility] [address] [place] [address] PCP - General PHYSICIAN WIRE COILER 02/25/23 Jose Alejandro Hartmann MD [address] [facility] [address] [place] [address] Consulting Physician GASTROENTEROLOGY 07/10/18 Russ John DPM [address] [facility] [address] [place] [address] Referring Physician PODIATRY/SURGERY 05/25/20 Lucio Joe MD [address] [place] [address] CARDIOVASCULAR DISEASE 10/03/20 Shazia Valenzuela PA-C [address] [place] [address], 1[address] [place] [address] Physician [employer] PHYSICIAN WIRE COILER 02/25/23 Dr. Ahumada DERMATOLOGY 07/10/18 Dr. Cruz CHIROPRACTIC 07/10/18 Violette Chandler Under Sheriff 02/14/22 documented as of this encounter
--- OUTSIDE RECORDS SUMMARY | 2024-11-25 13:28 | XMS_ITS | Clinical Summary ---
Author Organization [facility] Address [address] [place] [address] Care Team Providers Care Retail Presentation Specialist Name Role Phone Gayla Tellez MD Primary Care Provider [phone] Allergies Active Allergy Reactions Criticality Noted Date Comments Bupropion Unknown 12/14/2011 Sore throat Lisinopril Cough Low 10/03/2020 Metformin Stomach upset Low 01/06/2021 Medications levothyroxine (SYNTHROID) 75 mcg tablet 1/2 tab every day 03/22/2019 Active semaglutide (OZEMPIC SUBQ) Inject under the skin Active atorvastatin (LIPITOR) 40 mg tablet Take 1 tablet (40 mg total) by mouth daily 90 tablet 1 09/23/2023 Active aspirin 81 mg enteric coated tablet Take 1 tablet (81 mg total) by mouth daily Active citalopram (CeleXA) 20 mg tablet Take 1 tablet (20 mg total) by mouth daily Active cholecalciferol (VITAMIN D-3) 2000 unit capsule 1 capsule (2,000 Units total) Active spironolactone (ALDACTONE) 25 mg tablet Take 1 tablet (25 mg total) by mouth daily 90 tablet 3 05/17/2024 Active torsemide (DEMADEX) 10 mg tablet Take 1 tablet (10 mg total) by mouth daily as needed (Symptoms of fluid overload ie) swelling, weight gain of 3lbs in 1 day, or 5lbs over 2-3 days.) 90 tablet 3 05/17/2024 Active metoprolol XL (TOPROL-XL) 25 mg extended release tablet Take 1 tablet by mouth once daily 90 tablet 1 07/20/2024 Active Active Problems Problem Noted Date Diagnosed Date Lumbar radiculopathy 06/29/2022 Intervertebral disc disorder with radiculopathy of lumbosacral region 05/01/2022 (HFpEF) heart failure with preserved ejection fr action 05/01/2022 Diabetes 05/01/2022 Atrial fibrillation 05/01/2022 Overview (05/01/2022): Seen by cardiology after a monitor showed possible PSVT, but the tipple engineer reviewed and thinks it is more likely atrial fibrillation, but it was only a few second run of this about 5 seconds. He does not recommend any further evaluation or treatment of this unless she has symptoms at the time or if its lasting greater than 6 minutes. Stage 3b chronic kidney disease 09/03/2021 Chondromalacia of patella 05/17/2018 Primary osteoarthritis of both knees 05/17/2018 Lower extremity edema 02/10/2018 Anxiety 03/16/2014 Overview (05/01/2022): Date Onset: 03/16/2014 Depression 12/14/2011 Overview (05/01/2022): declines meds, encouraged counseling Hyperlipidemia 12/14/2011 Hypertension, essential 12/14/2011 Hypothyroidism 12/14/2011 Morbid obesity 12/14/2011 Obstructive sleep apnea 12/14/2011 Overview (05/01/2022): Date Onset: 2009, wears cpap Hiatal hernia 04/30/2010 Immunizations Immunization Administration Dates Next Due Flucelvax Influenza Quad 05/16/2018,05/13/2017 Influenza, Quadrivalent, Spl it, Preservative Free, Intramuscular 05/05/2016 Influenza, Trivalent, Cell Culture-based MDCK, Preservative Free, Antibiotic Free, Intramuscular 05/16/2018,05/13/2017 Influenza, Trivalent, High D ose, Split, Preservative Free, Intramuscular 05/23/2019 Influenza, Unspecified 05/30/2021,2017,05/06/2016,05/21,05/15/2014,05/09/2013,04/07/2012 Pneumococcal Conjugate PCV 13 05/23/2019, 018 Pneumococcal Polysaccharide PPV23 04/11/2020 Tdap 01/06/2021 Surgical History Surgery Date Site/Laterality Comments HYSTERECTOMY SINUS SURGERY LEG SURGERY BREAST SURGERY Reduction Medical History Medical History Date Comments Hypertension Hyperlipidemia Sleep apnea Diabetes mellitus (HCC) Type 2 diabetes mellitus (HCC) CHF (congestive heart failure) (HCC) Low back pain Family History Medical History Relation Name Comments Hypertension Father Cancer Mother Cancer Sister Relation Name Status Comments Father Mother Sister Social History Tobacco Use Types Packs/Day Years Used Date Smoking Tobacco: Former Tobacco Cessation:Counseling Given: Not Answered AUDIT-C Answer Date Recorded Q1: How often do you have a drink containing alc ohol? Monthly or less 06/29/2022 Q2: How many drinks containi ng alcohol do you have on a typical day when you are drinking? 1 or 2 06/29/2022 Frequency of Binge Drinking Not on file 11/2021 Comments No Sex and Gender Information Value Date Recorded Sex Assigned at Not on file Legal Sex Female 5:18 AM STONE SETTER Gender Identity Not on file Sexual Orientation Not on file Obstetrics History Last Filed Vital Signs Vital Sign Reading Time Taken Comments Blood Pressure 102/64 05/17/2024 1:02 PM CDT Pulse 76 05/17/2024 1:02 PM CDT Temperature 36.4 C (97.5 F) 06/29/2022 9:56 AM STONE SETTER Respiratory Rate 16 06/29/2022 9:56 AM STONE SETTER Oxygen Saturation 96% 05/17/2024 1:02 PM CDT Inhaled Oxygen Concentration - - Weight 113.4 kg (250 lb) 05/17/2024 1:02 PM CDT Height 167.6 cm (5' 6) 05/17/2024 1:02 PM CDT Body Mass Index 40.35 05/17/2024 1:02 PM CDT Plan of Treatment Health Maintenance Due Date Last Done Comments Albumin Creatinine Ratio, Urine 1950 Colon Cancer Screening-Colonoscopy 1950 Depression Screening 1950 Fall Risk Assessment 1950 Hemoglobin A1C 1950 Hepatitis C Screening 1950 eGFR 1950 Dilated Eye Exam 1950 Foot Exam 1950 Hepatitis B Screening 1968 Well Visit 65+ 2015 Covid-19 Vaccine (4 - 2023-2 5 season) 2024 07/08/2021, 11/01/2020, 10/04/2020 Osteoporosis Screening-Bone Density Scan 12/16/2024 12/16/2022 Lipid Panel 03/10/2025 03/10/2024, 02/23, 01/22/2020 Influenza Vaccine (Season Ended) 2025 05/30/2021, 05/23/2019, 05/16/2018, Additional history exists Breast Cancer Screening-Mammogram 05/23/2025 05/23/2024, 05/23/2024, 08/30/2019, Additional history exists DTaP/Tdap/Td Vaccine (2 - Td or Tdap) 01/06/2031 01/06/2021 Pneumococcal vaccine 65+ Completed 020, 05/23/2019, 05/13/2018 Zoster Vaccine Completed 12/23/2022, 10/17/2022 Goals Goal Patient Goal Type Associated Problems Recent Progress Patient-Stated? Author CCM Chronic Pain Care Plan Chronic Care Management Improving( 9:58 AM STONE SETTER) Funmilayo Borja, RN Note: Problem: Chronic Pain Goals: 1. Minimize further functional decline 2. Maximize quality of life 3. Control pain Strategies: - Activity/exercise program recommendation - Conservative stepwise pain medicine strategy with multi-disciplinary approach - Recommend healthy lifestyle strategies and compensatory methods as needed Insurance [employer] MEDICARE HMO MEDICARE ON LICENSE OF [facility] MEDICARE [facility] MEDICARE [facility] MEDICARE O Member Subscriber Plan / Payer (Ef fective 2024-Present) Name:Talia Cox Harish Relation to Subscriber:Self Name:Talia Cox Payer ID:[id number] (NAIC) Type:MEDICARE RISK OTHER Address: [place] [phone] [place] [id number] Care Teams Retail Presentation Specialist Relationship Specialty Start Date End Date Gayla Tellez MD PCP - General Family Medicine 06/29/22
--- OUTSIDE RECORDS SUMMARY | 2024-11-25 13:28 | XMS_ITS | Clinical Summary ---
Author Organization [facility] Address [facility] [place] [address] Care Team Providers Care Ditch Cleaner Name Role Phone Jose Alejandro Hartmann MD Unavailable Russ John DPKermit Unavailable [phone] Lucio Joe MD Unavailable Shazia Patiño PA-C Unavailable [phone] Shazia Patiño PA-C Primary Care Provider [phone] Allergies Active Allergy Reactions Criticality Noted Date Comments Bupropion Other (see comment) 12/14/2011 Sore throat Lisinopril Cough 10/03/2020 Metformin GI Upset 01/06/2021 Medications CPAP DME DEVICE [id number] 12Active Active aspirin 81 MG chewable tablet Chew 1 tablet (81 mg total) by mouth daily. Active levothyroxine (SYNTHROID) 75 MCG tabletIndications :Acquired hypothyroidism Take 1 tablet (75 mcg total) by mouth every morning. 90 tablet 3 024 Active metoprolol succinate ER (TOPROL-XL) 50 MG 24 hr tabletIndications :Essential hypertension Take 0.5 tablets (25 mg total) by mouth daily. 90 tablet 3 024 Active Additional Information Patient not taking.Reported on 11/02/2024 spironolactone (ALDACTONE) 50 MG tabletIndications :Essential hypertension Take 0.5 tablets (25 mg total) by mouth daily. 90 tablet 3 024 Active torsemide (DEMADEX) 20 MG tabletIndications :Essential hypertension Take 0.5 tablets (10 mg total) by mouth daily as needed. Take with lower extremity swelling or a 3 pound weight gain in 1 day or 5 lb weight gain over 2-3 days. 30 tablet 024 Active citalopram (CELEXA) 20 MG tabletIndications :Anxiety,Mild episode of recurrent major depressive disorder Take 1 tablet (20 mg total) by mouth daily. 90 tablet 3 024 Active famotidine (PEPCID) 10 MG tablet Take 1 tablet (10 mg total) by mouth every evening. Active semaglutide (OZEMPIC) 2 mg/dose injection (PEN)Indications: Diabetes Mellitus Inject 2 mg into the skin once a week. Indications: Diabetes 9 mL 025 Active metoprolol succinate ER (TOPROL-XL) 25 MG 24 hr tablet Take 1 tablet (25 mg total) by mouth daily. Active atorvastatin (LIPITOR) 40 MG tabletIndications :HLD (hyperlipidemia) TAKE 1 TABLET BY MOUTH NIGHTLY AT BEDTIME 90 tablet 025 Active atorvastatin (LIPITOR) 40 MG tabletIndications :HLD (hyperlipidemia) TAKE 1 TABLET BY MOUTH NIGHTLY AT BEDTIME 90 tablet 024 2024 Discontinued Active Problems Problem Noted Date Diagnosed Date Dysphagia, unspecified type 05/19/2024 Right upper quadrant abdominal pain 05/19/2024 Morbid (severe) obesity due to excess calories 0 03/10/2023 Stage 3b chronic kidney disease 09/03/2021 CHF (congestive heart failure) ([facility]) 06/06/2020 Chondromalacia of patella 05/17/2018 Primary osteoarthritis of both knees 05/17/2018 Lower extremity edema 02/10/2018 Anxiety 03/16/2014 Overview (07/07/2018): Date Onset: 03/16/2014 Depression 12/14/2011 Overview (07/07/2018): declines meds, encouraged counseling Hyperlipidemia 12/14/2011 Hypertension, essential 12/14/2011 Hypothyroidism 12/14/2011 Morbid obesity 12/14/2011 Obstructive sleep apnea 12/14/2011 Overview (07/07/2018): Date Onset: 2009, wears cpap Diabetes ([facility]) SVT (supraventricular tachycardia) ([facility]) Atrial fibrillation ([facility]) Overview (04/11/2020): Seen by cardiology after a monitor showed possible PSVT, but the wharf tender reviewed and thinks it is more likely atrial fibrillation, but it was only a few second run of this about 5 seconds. He does not recommend any further evaluation or treatment of this unless she has symptoms at the time or if its lasting greater than 6 minutes. (HFpEF) heart failure with p reserved ejection fraction ([facility]) Resolved Problems Problem Noted Date Diagnosed Date Resolved Date Equinus deformity of both feet 02/10/2018 07/07/2018 Plantar fasciitis 02/10/2018 07/07/2018 Talipes calcaneovalgus 02/10/201807/07 Gastro-esophageal reflux dis ease without esophagitis 12/14/2011 07/07/2018 Hiatal hernia 04/30/2010 07/07/2018 Overview (07/07/2018): Date Onset: 02/25/2012 Encounters Date Type Department Care Team Description 11/03/2024 Telephone [facility] [address] [place] [address] Shazia Patiño PA-C Results (XR Clavicle ) 11/02/2024 12:12 PM CDT - 11/02/2024 11:59 PM CDT Hospital Encounter [facility] [address] [place], [place] [id number] Shazia Patiño PA-C Discharge Disposition: Home or Self Care (Routine Discharge) 11/02/2024 11:20 AM CDT Office Visit [facility] [address] [place] [address] Shazia Patiño PA-C Follow Up (Still taking ozempic/ GI problems seem to be resolved) 11/02/2024 Travel from Last 3 Months Immunizations Immunization Administration Dates Next Due Flucelvax 6 Months+ (Prefill ed Syringe) 05/16/2018,05/13/2017 Fluzone High Dose - >Age 65 (Prefilled Syringe) 07/02/2023,07/01/2022,04/11/2020 Influenza (Generic) 05/06/2016, 5,05/15/2014,2012,04/07/2012 Influenza Adult (Generic) 05/30/2021,,05/13/2018,2015 MODERNA COVID-19 (12+) MRNA, LNP-S, PF, 100 MCG/ 0.5 ML DOSE 07/08/2021,11/01/2020,10/04/2020 Pneumococcal (Pneumovax 23) 04/11/2020 Pneumococcal (Prevnar 13) 05/23/2019,05/13/2018 Pneumococcal (Prevnar 20) 03/10/2024 Shingrix 12/23/2022,10/17/2022 Tdap (Adacel) 01/06/2021 Family History Medical History Relation Comments Depression Brother 1 back surgery Brother 1 Kidney Cancer Brother 2 Heart Brother 4 needed ablation for fast heart rate Arthritis Brother 6 hip replacement Heart Daughter fast heart rate Heart Father CABG Breast Cancer Maternal Aunt 1 Cancer Maternal Aunt 2 cervical Lung Cancer Maternal Uncle cervical cancer Mother bone cancer Paternal Uncle 1 Cancer Paternal Uncle 2 Cancer Sister 1 female, ? cerv ical HANKS Sister 2 bladder cancer Sister 3 Diabetes Sister 4 Heart Disease Sister 4 valvular Hypertension Sister 4 mva Sister 5 hip deterioration Son Relation Status Comments Brother 1 Alive Brother 2 Alive Brother 3 Alive Brother 4 Alive Brother 5 Alive Brother 6 Alive Daughter Alive Father Maternal Aunt 1 Maternal Aunt 2 Maternal Grandfather Maternal Grandmother Maternal Uncle Mother Paternal Grandfather Paternal Grandmother Paternal Uncle 1 Paternal Uncle 2 Sister 1 Sister 2 Sister 3 Sister 4 Sister 5 Son Alive Social History Tobacco Use Types Packs/Day Years Used Date Smoking Tobacco: Former Cigarettes 0.1 3 1 968 - 1971 Smokeless Tobacco: Former Tobacco Cessation:Counseling Given: No Alcohol Use Standard Drinks/Week Comments No 0 [...] on file Sexual Orientation Not on file Last Filed Vital Signs Vital Sign Reading Time Taken Comments Blood Pressure 124/89 11/02/2024 11:19 AM CDT Pulse 74 11/02/2024 11:19 AM CDT Temperature 36.7 C (98.1 F) 11/02/2024 11:19 AM CDT Respiratory Rate 20 11/02/2024 11:19 AM CDT Oxygen Saturation 100% 11/02/2024 11:19 AM CDT Inhaled Oxygen Concentration - - Weight 109 kg (240 lb 4 oz) 11/02/2024 11:19 AM CDT Height 167.6 cm (5' 6) 11/02/2024 11:19 AM CDT Body Mass Index 38.78 11/02/2024 11:19 AM CDT Plan of Treatment Upcoming Encounters Date Type Department Care Team (Late st Contact Info) Description 02/07/2025 11:20 AM CDT Office Visit [facility] [address] [place] [address] Shazia Patiño PA-C [address] [place] [address] Health Maintenance Due Date Last Done Comments RSV Immunization or 60+ Years (1 - Risk 60-74 years 1-dose series) 2010 Annual Medicare Wellness Visit 2015 Diabetes: Retinopathy Eye Exam 02/03/2024 02/02/2022 COVID-19 Vaccine ( season) 2024 07/08/2021, 11/01/2020, 10/04/2020 PHQ-2 (Physician [place]) 07/26/2024 11/30/2023 Hemoglobin A1C 09/10/2024 03/10/2024, 08/2022, 03/19/2022, Additional history exists Colorectal Cancer Screening Colonoscopy (10 Years) 03/06/2025 03/05/2015 Postponed from 03/05/2025 (Awaiting Documentation) Kidney Health Evaluation 03/10/2025 03/10/2024 Lipid Panel 03/10/2025 03/10/2024, 02/23, 05/12/2021, Additional history exists Mammogram Screening 05/23/2026 05/23/2024, 08/30/2019, 07/28/2018, Additional history exists DTaP, Tdap and Td Vaccines (2 - Td or Tdap) 01/06/2031 01/06/2021 Hepatitis C Completed 08/11/2018 Dexa Scan (General) Completed 12/16/2022 Zoster Vaccines Completed 12/23/2022, 10/17/2022 Pneumococcal Vaccine: 50+ Years Completed 03/10/2024, 04/11/2020, 05/23/2019, Additional history exists Meningococcal B Vaccine Aged Out No l onger eligible based on patient's age to complete this topic Meningococcal Vaccine Aged Out No alexx laya eligible based on patient's age to complete this topic RSV Immunizations Under 20 Months Aged Out No longer eligible based on patient's age to complete this topic Medical Devices Implanted Type Area Downstream Biomanufacturing Technician Device Identifier Shelf Expiration Date Model / Serial / Lot Levi Levi Right: Leg Procedures Procedure Name Priority Date/Time Associated Diagnosis Comments XR CLAVICLE RT Routine 11/02/2024 12:25 PM CDT Acute pain of right shoulder XR SHOULDER RT MIN 2V Routine 11/02/2024 12:25 PM CDT Acute pain of right shoulder MG SCREENING W SHELL HAYLIE DIGI Routine 05/23/2024 9:17 AM CDT Screening mammogram, encounter for LIPID PANEL Routine 03/10/2024 11:18 AM CDT Screening, lipid HEMOGLOBIN, GLYCOSYLATED Routine 03/10/2024 Type 2 diabetes mellitus with stage 3a chronic kidney disease, without long-term current use of insulin BONE DENSITY/DEXA Routine 12/16/2022 10: 16 AM CDT Post-menopausal DIABETIC RETINOPATHY EXAM (NEGATIVE)(SCAN ORDER) Routine 02/02/2022 HEPATITIS C ANTIBODY 08/11/2018 10:58 AM UTILITIES OPERATOR COLONOSCOPY/EGD GENERIC (SCAN ORDER) 03/05/2015 from Last 3 Months or Most Recently Relevant to Health Maintenance Results * XR SHOULDER RT MIN 2V (11/02/2024 12:25 PM CDT) Anatomical Region Laterality Modality Shoulder Radiographic Vicki ging 11/03/2024 8:51 AM CDT Impressions 11/03/2024 8:53 AM CDT IMPRESSION: Suspected healing fracture of the clavicle. Prominence of the coracoclavicular distance. Weightbearing and nonweightbearing views of the clavicle are recommended. Referred By: Interpreted By: Alex Ferreira MD, 11/03/2024 8:51 AM Narrative 11/03/2024 8:53 AM CDT [address] [address] Procedure(s): XR CLAVICLE RT, XR SHOULDER RT MIN 2V Date of service: 11/02/2024 12:15 PM Provided clinical information: 74 years, Female, fall 05/2024, pain in right clavicle Procedure and materials: 2 views of the right clavicle. 2 views of the right shoulder. Comparison studies: None. Findings: There is periosteal reaction is present about the distal aspect of the clavicle concerning for a healing fracture. Cortical clavicular distance is approximately 1 cm. This is slightly prominent. No definitive evidence of AC joint separation is present on the current radiograph. Weightbearing views of the right clavicle recommended for AC joint evaluation. AC joint osteophytes are present. About the right shoulder the humeral head does not appear to be dislocated from the glenoid. Degenerative change about the humeral head and greater tuberosity. Procedure Note Alex Ferreira MD - 11/03/2024 [facility] [address] [place] [address] Procedure(s): XR CLAVICLE RT, XR SHOULDER RT MIN 2V Date of service: 11/02/2024 12:15 PM Provided clinical information: 74 years, Female, fall 05/2024, pain inright clavicle Procedure and materials: 2 views of the right clavicle. 2 views of the right shoulder. Comparison studies: None. Findings: There is periosteal reaction is present about the distal aspect of theclavicle concerning for a healing fracture. Cortical clavicular distanceis approximately 1 cm. This is slightly prominent. No definitiveevidence of AC joint separation is present on the current radiograph.Weightbearing views of the right clavicle recommended for AC jointevaluation. AC joint osteophytes are present. About the right shoulder the humeral head does not appear to be dislocatedfrom the glenoid. Degenerative change about the humeral head and greatertuberosity. IMPRESSION: Suspected healing fracture of the clavicle. Prominence of thecoracoclavicular distance. Weightbearing and nonweightbearing views ofthe clavicle are recommended. Referred By: Interpreted By: Alex Ferreira MD, 11/03/2024 8:51 AM Shazia Patiño PA-C GENERAL IMAGING Final Resu lt * XR CLAVICLE RT (11/02/2024 12:25 PM CDT) Anatomical Region Laterality Modality Shoulder Radiographic Vicki ging 11/03/2024 8:51 AM CDT Impressions 11/03/2024 8:53 AM CDT IMPRESSION: Suspected healing fracture of the clavicle. Prominence of the coracoclavicular distance. Weightbearing and nonweightbearing views of the clavicle are recommended. Referred By: Interpreted By: Alex Ferreira MD, 11/03/2024 8:51 AM Narrative 11/03/2024 8:53 AM CDT [facility] [address] [place] [address] Procedure(s): XR CLAVICLE RT, XR SHOULDER RT MIN 2V Date of service: 11/02/2024 12:15 PM Provided clinical information: 74 years, Female, fall 05/2024, pain in right clavicle Procedure and materials: 2 views of the right clavicle. 2 views of the right shoulder. Comparison studies: None. Findings: There is periosteal reaction is present about the distal aspect of the clavicle concerning for a healing fracture. Cortical clavicular distance is approximately 1 cm. This is slightly prominent. No definitive evidence of AC joint separation is present on the current radiograph. Weightbearing views of the right clavicle recommended for AC joint evaluation. AC joint osteophytes are present. About the right shoulder the humeral head does not appear to be dislocated from the glenoid. Degenerative change about the humeral head and greater tuberosity. Procedure Note Alex Ferreira MD - 11/03/2024 [facility] [address] [place] [address] Procedure(s): XR CLAVICLE RT, XR SHOULDER RT MIN 2V Date of service: 11/02/2024 12:15 PM Provided clinical information: 74 years, Female, fall 05/2024, pain inright clavicle Procedure and materials: 2 views of the right clavicle. 2 views of the right shoulder. Comparison studies: None. Findings: There is periosteal reaction is present about the distal aspect of theclavicle concerning for a healing fracture. Cortical clavicular distanceis approximately 1 cm. This is slightly prominent. No definitiveevidence of AC joint separation is present on the current radiograph.Weightbearing views of the right clavicle recommended for AC jointevaluation. AC joint osteophytes are present. About the right shoulder the humeral head does not appear to be dislocatedfrom the glenoid. Degenerative change about the humeral head and greatertuberosity. IMPRESSION: Suspected healing fracture of the clavicle. Prominence of thecoracoclavicular distance. Weightbearing and nonweightbearing views ofthe clavicle are recommended. Referred By: Interpreted By: Alxe Ferreira MD, 11/03/2024 8:51 AM Shazia Patiño PA-C GENERAL IMAGING Final Resu lt * MG SCREENING W SHELL HAYLIE DIGI (05/23/2024 9:17 AM CDT) Anatomical Region Laterality Modality Breast Bilateral Mammography 05/23/2024 10:3 4 AM CDT Impressions 05/23/2024 10:36 AM CDT IMPRESSION: No interval features to suggest malignancy. In the absence of clinical symptoms, return for annual screening due in one year. RECOMMENDATION: Routine screening mammogram Bilateral in 1 Year ASSESSMENT: ACR BI-RADS CATEGORY 2 - BENIGN FINDING(S) COMMENTS: A negative or benign mammogram report should not delay follow-up or biopsy of a clinically significant finding or palpable abnormality. Regions of dense breast tissue may obscure findings on mammogram. Ordered By: SHAZIA PATIÑO Interpreted By: Cristino Wallace MD, 05/23/2024 10:34 AM Narrative 05/23/2024 10:36 AM CDT [address] [address] EXAMINATION: BILATERAL SCREENING MAMMOGRAM CLINICAL INDICATION: 73 years of age female routine screening. No current breast complaints. History of prior excisional biopsies on the left and prior breast reduction. History of breast cancer maternal aunt. COMPARISON: Screening mammogram(s) 08/30/2019, 01/28/2018, 11/12/2013. TECHNIQUE: Digital CC & MLO views. Tomosynthesis imaging acquisition Study read with the assistance of a computer-aided detection system. TISSUE DENSITY: There are scattered areas of fibroglandular density. FINDINGS: Scattered benign-appearing calcifications noted. No suspicious grouping of microcalcifications, unexpected distortion, or new dominant suspicious nodule 3 dimensionally demonstrated in either breast. us Shazia Patiño PA-C MAMMO Final Resu lt * (ABNORMAL) LIPID PANEL (03/10/2024 11:18 AM CDT) CHOLESTEROL 247(H) <200 MG/DL 03/10/2024 1:46 PM CDT [facility] TRIGLYCERIDES 302(H) <150 MG/DL 03/10/2024 1:46 PM CDT [facility] HDL 43 >40.0 MG/DL 03/10/2024 1:46 PM T [facility] LDL (CALCULATED) 144(H) <100 MG/DL 03/10/2024 1:46 PM T [facility] NON HDL CHOLESTEROL 204(H) <130 MG/DL 03/10/2024 1:46 PM T [facility] Comment: NOTE: WHEN THE TRIGLYCERIDES ARE >200 mg/dL, NON HDL C IS A SECONDARY TARGET OF THERAPY, WITH A GOAL 30 mg/dL HIGHER THAN THE IDENTIFIED LDL C GOAL. CHOL/HDL RATIO 5.7(H) 0.0 - 4.5 03/10/2024 1:46 PM T [facility] VLDL CALCULATION 60(H) 5 - 55 MG/DL 03/10/2024 1:46 PM T [facility] LIPID INTERPRETATION 03/10/2024 1:46 PM T [facility] Comment: NIH CONCENSUS REPORT RECOMMENDATIONS: ADULT CHILD LOW RISK: CHOLESTEROL <200 <170 TRIGLYCERIDE <150 --- HDL >=60 --- LDL <100 <110 BORDERLINE: CHOLESTEROL 200-239 170-199 TRIGLYCERIDE 150-199 --- HDL 40-59 --- LDL 100-159 110-129 HIGH RISK: CHOLESTEROL >=240 >=200 TRIGLYCERIDE >=200 --- HDL <40 --- LDL >=160 >=130 03/10/2024 11:1 8 AM CDT Shazia Patiño PA-C LABORATORY Final Resu lt [facility] [address] [place] [address], [place] [phone] * A1C (BACK OFFICE) (03/10/2024) HGB A1C 5.9 % [address] (9473), [place] 03/10/2024 Shazia Win Bianca RM-Sue LABORATORY Final Resu lt [address] (9452), [place] [address] [place] [address], [place] [phone] * BONE DENSITY/DEXA (12/16/2022 10:16 AM CDT) Anatomical Region Laterality Modality Bone Bone Density 12/16/2022 10:1 7 AM CDT Impressions 12/16/2022 10:20 AM CDT IMPRESSION: WHO Classification: Normal RECOMMENDATIONS: All patients should ensure an adequate intake of dietary calcium and vitamin D. The NOF recommend adults under the age of 50 need 1000 mg of calcium and 400-800 IU of vitamin D daily. Effective therapy for the prevention and treatment of osteoporosis include bisphosphonates. FOLLOW-UP: People with diagnosed cases of osteoporosis or at high risk for fracture should have regular bone mineral density test. For patients eligible for Medicare, routine testing is allowed once every 2 years. Testing frequency can be increased to one year for patients who have rapidly progressing disease, those who are receiving or discontinuing medical therapy to restore bone mass, or have additional risk factors. Ordered By: PARISH MALDONADO Interpreted By: Michele Osorio, 12/16/2022 10:17 AM Narrative 12/16/2022 10:20 AM CDT EXAMINATION: BONE DENSITY/DEXA INDICATIONS: Asymptomatic menopausal state COMPARISON: 01/28/2018 TECHNIQUE: DEXA bone mineral density evaluation was performed in the AP projection over the lumbar spine and both hips utilizing standard imaging techniques. FINDINGS: The BMD measured at the AP spine L1-L4 is 1.353 g/cm? with a T-score of 2.8 (previously 1.284 g/cm?) with a T-score of 2.2). The BMD measured at the left hip is 1.284 g/cm? with a T-score of 2.8 (previously 1.199 g/cm?) with a T-score of 2.1). The BMD measured at the left femoral neck is 1.020 g/cm? with a T-score of 1.5 (previously 1.050 g/cm?) with a T-score of 1.8). The BMD measured at the right hip is 1.173 g/cm? with a T-score of 1.9. The BMD measured at the right femoral neck is 1.041 g/cm? with a T-score of 1.7. FRAX 10-year fracture risk: N/A: All T-scores or above -1.0 Procedure Note Michele Osorio MD - 12/16/2022 EXAMINATION: BONE DENSITY/DEXA INDICATIONS: Asymptomatic menopausal state COMPARISON: 01/28/2018 TECHNIQUE: DEXA bone mineral density evaluation was performed in the APprojection over the lumbar spine and both hips utilizing standard imagingtechniques. FINDINGS: The BMD measured at the AP spine L1-L4 is 1.353 g/cm? with a T-score of2.8 (previously 1.284 g/cm?) with a T-score of 2.2). The BMD measured at the left hip is 1.284 g/cm? with a T-score of 2.8(previously 1.199 g/cm?) with a T-score of 2.1). The BMD measured at the left femoral neck is 1.020 g/cm? with a T-score of1.5 (previously 1.050 g/cm?) with a T-score of 1.8). The BMD measured at the right hip is 1.173 g/cm? with a T-score of 1.9. The BMD measured at the right femoral neck is 1.041 g/cm? with a T-scoreof 1.7. FRAX 10-year fracture risk: N/A: All T-scores or above -1.0 IMPRESSION: WHO Classification: Normal RECOMMENDATIONS: All patients should ensure an adequate intake of dietary calcium andvitamin D. The NOF recommend adults under the age of 50 need 1000 mg ofcalcium and 400-800 IU of vitamin D daily. Effective therapy for theprevention and treatment of osteoporosis include bisphosphonates. FOLLOW-UP: People with diagnosed cases of osteoporosis or at high risk for fractureshould have regular bone mineral density test. For patients eligible forMedicare, routine testing is allowed once every 2 years. Testing frequencycan be increased to one year for patients who have rapidly progressingdisease, those who are receiving or discontinuing medical therapy torestore bone mass, or have additional risk factors. Ordered By: PARISH MALDONADO Interpreted By: Michele Osorio, 12/16/2022 10:17 AM us Parish Maldonado MD DEXA Final Re sult * DIABETIC RETINOPATHY EXAM (NEGATIVE)(SCAN) (02/02/2022) us Documents Scanned SCANNING Final Result [facility] * HEPATITIS C ANTIBODY (08/11/2018 10:58 AM UTILITIES OPERATOR) HEPATITIS C AB <0.1 0.0 - 0.9 s/co ratio [facility] 1 Comment: Negative: < 0.8 Indeterminate: 0.8 - 0.9 Positive: > 0.9 The CDC recommends that a positive HCV antibody result be followed up with a HCV Nucleic Acid Amplification test (636992). 08/11/2018 10:5 8 AM UTILITIES OPERATOR 08/11/2018 Narrative [facility] - 08/12/2018 7:36 AM UTILITIES OPERATOR Performed at: [facility] [id number] Telephoto Engineer: Evangelista Trujillo PhD, Phone: [phone] us Shazia Patiño PA-C LABORATORY Final Resu lt [facility] [address] [place] [address] [facility] 1 * COLONOSCOPY/EGD GENERIC (03/05/2015) 03/05/2015 Narrative 03/05/2015 Ordered by an unspecified provider. us Documents Scanned SCANNING Final Result from Last 3 Months or Most Recently Relevant to Health Maintenance Insurance [employer] Advance Directives Documents on File Type Date Recorded Patient Enforcement Officer Expl anation Advance Directives and Living Will 03/06/2015 12:00 AM ADVANCED DIRECTIVES Advance Directives and Living Will 03/05/2015 12:00 AM ADVANCED DIRECTIVES Advance Directives and Living Will 11/03/2021 10:05 AM POLST Care Teams Ditch Cleaner Relationship Specialty Start Date End Date Shazia Patiño PA-C [address] [facility] [address] [place] [address] PCP - General PHYSICIAN HUMAN RESOURCE ADVISER 02/25/23 Jose Alejandro Hartmann MD [address] [facility] [address] [place] [address] Consulting Physician GASTROENTEROLOGY 07/10/18 Russ John DPM [address] [facility] [address] [place] [address] Referring Physician PODIATRY/SURGERY 05/25/20 Lucio Joe MD [address] [place] [address] CARDIOVASCULAR DISEASE 10/03/20 Shazia Patiño PA-C [address] [place] [address], [address] [place], [place] [id number] Physician Unit Receptionist PHYSICIAN HUMAN RESOURCE ADVISER 02/25/23 Dr. Ahumada DERMATOLOGY 07/10/18 Dr. Cruz CHIROPRACTIC 07/10/18 Violette Chandler Patient Financial Services Coordinator 02/14/22
--- OUTSIDE RECORDS SUMMARY | 2024-11-25 13:28 | XMS_ITS | Encounter Summary ---
Author Organization [facility] Address [address] [place] [address] Care Team Providers Care Community Services Coordinator Name Role Phone Jose Alejandro Hartmann MD Unavailable Russ John DPKermit Unavailable [phone] Lucio Joe MD Unavailable [phone] Gayla Tellez MD Unavailable [phone] Gayla Tellez MD Primary Care Provider + Shazia Valenzuela PA-C Unavailable [phone] Shazia Valenzuela PA-C Primary Care Provider + [phone] Encounter Details Date Type Department Care Team (Late st Contact Info) Description 02/14/2018 Abstract [facility] Conversion Shazia Valenzuela PA-C [address] [facility] [address] [place] [address] Social History Tobacco Use Types Packs/Day Years Used Date Smoking Tobacco: Former Comments Unknown Sex and Gender Information Value Date Recorded Sex Assigned at Not on file Legal Sex Female 11:38 PM CDT Gender Identity Not on file Sexual Orientation Not on file documented as of this encounter Miscellaneous Notes * Letter - Shazia Valenzuela PA-C - 02/14/2018 12:00 AM CDT 02-14-2018 , Talia Cox [facility]4 [place] [address] : 1950 Radiology: CAT Scan Chest w/ contrast R91.8 Other nonspecific abnormal finding of lung field Fasting [] Non-Fasting [] Normal [x] Stat [] RANCE SALES EXECUTIVE documented in this encounter Plan of Treatment Upcoming Encounters Date Type Department Care Team (Late st Contact Info) Description 02/07/2025 11:20 AM CDT Office Visit [facility] [address] [place] [id number] Shazia Valenzuela PA-C [address] [facility] [address] [place] [address] documented as of this encounter Visit Diagnoses Not on filedocumented in this encounter Additional Health Concerns Infection Onset Date Last Indicated Resolved Time COVID-19 Rule Out 11/30/2023 11/30/2023 11/30/2023 3:22 PM CDT documented as of this encounter Care Teams Community Services Coordinator Relationship Specialty Start Date End Date Gayla Tellez MD [address] [place] [address] PCP - General FAMILY PRACTICE 07/08/22 02/24/23 Shazia Valenzuela PA-C [address] [place] [address] [place] [address] [place] [address] PCP - General PHYSICIAN CARD HANGER 02/25/23 Jose Alejandro Hartmann MD 3 [facility] [address] [place] [address] Consulting Physician GASTROENTEROLOGY 07/10/18 Russ John DPM [address] [address] Referring Physician PODIATRY/SURGERY 05/25/20 Lucio Joe MD [address] [place] [address] CARDIOVASCULAR DISEASE 10/03/20 Gayla Tellez MD [address] [place] [address] FAMILY PRACTICE 07/08/22 07/08/22 Shazia Valenzuela PA-C [address] [place] [address], [address] [place] [address] Physician Instantizer Operator PHYSICIAN CARD HANGER 02/25/23 Dr. Ahumada DERMATOLOGY 07/10/18 Dr. Cruz CHIROPRACTIC 07/10/18 Violette Chandler Underwriting Sales Representative 02/14/22 documented as of this encounter
--- OUTSIDE RECORDS SUMMARY | 2024-11-25 13:28 | XMS_ITS | Encounter Summary ---
Author Organization [facility] Address [address] [place] [address] Care Team Providers Care Radio Recorder Name Role Phone Jose Alejandro Hartmann MD Unavailable Russ John DPKermit Unavailable [phone] Lucio Joe MD Unavailable [phone] Gayla Tellez MD Unavailable [phone] Gayla Tellez MD Primary Care Provider + Shazia Valenzuela PA-C Unavailable [phone] Shazia Valenzuela PA-C Primary Care Provider [phone] Encounter Details Date Type Department Care Team (Late st Contact Info) Description 01/18/2018 Abstract [facility] Conversion Shazia Valenzuela PA-C [address] [facility] 112 [place] [address] Social History Tobacco Use Types Packs/Day Years Used Date Smoking Tobacco: Former Comments Unknown Sex and Gender Information Value Date Recorded Sex Assigned at Not on file Legal Sex Female 11:38 PM CDT Gender Identity Not on file Sexual Orientation Not on file documented as of this encounter Miscellaneous Notes * Letter - Shazia Valenzuela PA-C - 01/18/2018 12:00 AM CDT 01-21-2018 , Talia Cox [address] [place] [address] : 1950 Radiology: Mammogram Diagnostic Bilateral Bone density Z12.31 Encntr screen mammogram for malignant neoplasm of breast N95.9 Unspecified menopausal and perimenopausal disorder Fasting [] Non-Fasting [] Normal [x] Stat [] TAL COMPUTER SYSTEMS ANALYST * Letter - Shazia Valenzuela PA-C - 01/18/2018 12:00 AM CDT Jan 18, 2018 Talia Cox [address] [place] [address] Dear Talia Cox, Thank you for choosing [facility] for your health care needs. We appreciate the opportunity to help you maintain your well being. You recently had lab work done on 01/04/18. Your results came back normal. Please remember to follow up as discussed at your last appointment .If you have any questions please feel free to call the office at [phone], Option #3 or Option #1 to make an appointment to discuss these results. Respectfully Yours, Electronically Signed by: Shazia RM Cc: Patients Medical Record TAL COMPUTER SYSTEMS ANALYST documented in this encounter Plan of Treatment Upcoming Encounters Date Type Department Care Team (Late st Contact Info) Description 02/07/2025 11:20 AM CDT Office Visit [facility] [address] [place] [id number] Shazia Valenzuela PA-C [address] [place] [address] [place], [place] [address] documented as of this encounter Visit Diagnoses Not on filedocumented in this encounter Additional Health Concerns Infection Onset Date Last Indicated Resolved Time COVID-19 Rule Out 11/30/2023 11/30/2023 11/30/2023 3:22 PM CDT documented as of this encounter Care Teams Radio Recorder Relationship Specialty Start Date End Date Gayla Tellez MD [address] [place] [address] PCP - General FAMILY PRACTICE 07/08/22 02/24/23 Shazia Valenzuela PA-C [address] [place] [id number] PCP - General PHYSICIAN SWITCHBOARD CLERK 02/25/23 Jose Alejandro Hartmann MD 3 [facility] 5000 [place] [address] Consulting Physician GASTROENTEROLOGY 07/10/18 Russ John DPM 3 [facility] [address] [place] [address] Referring Physician PODIATRY/SURGERY 05/25/20 Lucio Joe MD [address] [place] [address] CARDIOVASCULAR DISEASE 10/03/20 Gayla Tellez MD [address] [place] [address] FAMILY PRACTICE 07/08/22 07/08/22 Shazia Valenzuela PA-C [address] [place] [address], [address] [place] [address] Physician Microfilm Operator PHYSICIAN SWITCHBOARD CLERK 02/25/23 Dr. Ahumada DERMATOLOGY 07/10/18 Dr. Cruz CHIROPRACTIC 07/10/18 Violette Chandler Starch Cooker 02/14/22 documented as of this encounter
--- OUTSIDE RECORDS SUMMARY | 2024-11-25 13:28 | XMS_ITS | Encounter Summary ---
Author Organization [facility] Address [address] [place] [address] Care Team Providers Care Slasher Hand Name Role Phone Jose Alejandro Hartmann MD Unavailable Russ John DPM Unavailable [phone] Lucio Joe MD Unavailable [phone] Gayla Tellez MD Unavailable [phone] Gayla Tellez MD Primary Care Provider + Shazia Valenzuela PA-C Unavailable [phone] Shazia Vaelnzuela PA-C Primary Care Provider [phone] Encounter Details Date Type Department Care Team (Late st Contact Info) Description 08/31/2017 Abstract [facility] Lucien Lr MD 9401 [facility] 112 [place] [address] Social History Tobacco Use Types Packs/Day Years Used Date Smoking Tobacco: Former Comments Unknown Sex and Gender Information Value Date Recorded Sex Assigned at Not on file Legal Sex Female 11:38 PM CDT Gender Identity Not on file Sexual Orientation Not on file documented as of this encounter Miscellaneous Notes * Letter - Lucien Lr MD - 08/31/2017 12:00 AM CST Aug 31, 2017 Talia Cox [address] [place] [address] Dear Talia Cox, Thank you for choosing [facility] for your health care needs. We appreciate the opportunity to help you maintain your well being. You recently had labs drawn. Your results came back stable. Please remember to follow up as discussed at your last appointment and recheck your labs in six months. If you have any questions please feel free to call the office [phone], Option #3 or Option #1 to make an appointment to discuss these results. Respectfully Yours, Electronically Signed by: Lucien Lr MD Cc: Patients Medical Record F CLIMATE SCIENTIST * Letter - Lucien Lr MD - 08/31/2017 12:00 AM CST 08-31-2017 , Talia Cox [address] [place] [address] : 1950 Lab Order TSH with Reflex T4 E03.9 Hypothyroidism, unspecified Lab Order CMP; Lipid profile E78.4 Hyperlipidemia Lab Order Hemoglobin A1C R73.01 Impaired Fasting Glucose Recheck these labs in 6 months (February) Please remember to fast 8-10 hours before labs Normal [x] Stat [] F CLIMATE SCIENTIST * Letter - Lucien Lr MD - 08/31/2017 12:00 AM CST 08-31-2017 , Talia Cox [address] [place] [address] : 1950 Lab Order CMP; Lipid Panel E78.4 Other hyperlipidemia Normal [] Stat [] F CLIMATE SCIENTIST documented in this encounter Plan of Treatment Upcoming Encounters Date Type Department Care Team (Late st Contact Info) Description 02/07/2025 11:20 AM CDT Office Visit [facility] [address] [place] [address] Shazia Valenzuela PA-C [address] [address] documented as of this encounter Visit Diagnoses Not on filedocumented in this encounter Additional Health Concerns Infection Onset Date Last Indicated Resolved Time COVID-19 Rule Out 11/30/2023 11/30/2023 11/30/2023 3:22 PM CDT documented as of this encounter Care Teams Slasher Hand Relationship Specialty Start Date End Date Gayla Tellez MD [address] [place] [address] PCP - General FAMILY PRACTICE 07/08/22 02/24/23 Shazia Valenzuela PA-C [address] [address] PCP - General PHYSICIAN MATERIALS PLANNING MANAGER 02/25/23 Jose Alejandro Hartmann MD [address] [address] Consulting Physician GASTROENTEROLOGY 07/10/18 Russ John DPM [address] [address] Referring Physician PODIATRY/SURGERY 05/25/20 Lucio Joe MD [address] [place], [place] [id number] CARDIOVASCULAR DISEASE 10/03/20 Gayla Tellez MD [address] [place] [address] FAMILY PRACTICE 07/08/22 07/08/22 Shazia Valenzuela PA-C [address] [place] [address], [address] [place] [address] Physician Director Regulatory Agency PHYSICIAN MATERIALS PLANNING MANAGER 02/25/23 Dr. Ahumada DERMATOLOGY 07/10/18 Dr. Cruz CHIROPRACTIC 07/10/18 Violette Chandler Field Underwriter 02/14/22 documented as of this encounter
--- OUTSIDE RECORDS SUMMARY | 2024-11-25 13:28 | XMS_ITS | Clinical Summary ---
Author Organization [facility] Address [address] [place] [address] Care Team Providers Care Sheet Ironworker Name Role Phone Unavailable Primary Care Provider Unavailabl e Source Comments [facility],non-owned Affiliates and Associated Physician Practices is amultiple site organization consisting of ambulatory clinics and hospital sitesin [place], [place], [place] and [place]. This disclosure is being madepursuant to the Care Everywhere program and may not contain all information available regarding this patient. Last updated 18.[facility] Allergies No known active allergies Medications * Be aware that medications may not be up to date on this document. Alwaysverify current medications with the patient. amLODIPine (NORVASC) 10 MG tablet Take 10 mg by mouth once daily 2 04/11/2018 Active lisinopril (PRINIVIL; ZESTRIL) 20 MG tablet Take 20 mg by mouth once daily 3 05/13/2018 Active atorvastatin (LIPITOR) 40 MG tablet Take 40 mg by mouth once daily 0 04/13/2018 Active levothyroxine (SYNTHROID) 50 MCG tablet Take 50 mcg by mouth once daily 0 04/13/2018 Active sertraline (ZOLOFT) 50 MG tablet TAKE 1/2 TABLET BY MOUTH DAILY FOR 1 WEEK, THEN INCREASE TO 1 TABLET DAILY 1 05/13/2018 Active nabumetone (RELAFEN) 750 MG tablet TAKE 1 TABLET BY MOUTH TWICE A DAY 60 tablet 5 09/19/2018 Active Active Problems Problem Noted Date Diagnosed Date Primary osteoarthritis of both knees 05/17/2018 Chondromalacia of patella 05/17/2018 Social History Tobacco Use Types Packs/Day Years Used Date Smoking Tobacco: Never Assessed Comments Unknown Sex and Gender Information Value Date Recorded Sex Assigned at Not on file Legal Sex Female 2:03 PM CDT Gender Identity Not on file Sexual Orientation Not on file Last Filed Vital Signs Vital Sign Reading Time Taken Comments Blood Pressure - - Pulse - - Temperature - - Respiratory Rate - - Oxygen Saturation - - Inhaled Oxygen Concentration - - Weight 117.9 kg (260 lb) 05/17/2018 2:04 PM CDT Height 167.6 cm (5' 6) 05/17/2018 2:04 PM CDT Body Mass Index 41.97 05/17/2018 2:04 PM CDT Plan of Treatment Health Maintenance Due Date Last Done Comments BONE DENSITY TESTING 1950 COLOGUARD (AGES 45-75) - COL ON CA SCREENING 1950 COLON MONITORING 1950 COLONOSCOPY - COLON CA SCREENING 1950 CT COLONOGRAPHY - COLON CA SCREENING 1950 Colorectal Cancer Screening 1950 FIT - COLON CA SCREENING 1950 FLEX SIG - COLON CA SCREENING 1950 MAMMOGRAM 1950 HEPATITIS C SCREENING 08/01/1968 DTAP/TDAP/TD VACCINES (1 - Tdap) 1969 PNEUMOCOCCAL VACCINE 50+ (1 of 1 - PCV) 2000 ZOSTER VACCINE (1 of 2) 2000 Respiratory Syncytial Virus (RSV) Vaccine Pt: or over 60 yrs (1 - Risk 60-74 years 1-dose series) 2010 SCREENING FOR DIABETES 05/17/2018 COVID-19 VACCINE ( - 2023-2 5 season) 2024 DEPRESSION SCREENING 07/26/2024 INFLUENZA VACCINE (Season Ended) 2025 HEPATITIS B VACCINE Aged Out No longe r eligible based on patient's age to complete this topic HIB VACCINE Aged Out No longer eligi ble based on patient's age to complete this topic HPV VACCINE Aged Out No longer eligi ble based on patient's age to complete this topic MENINGOCOCCAL (Group B) VACC INE SHARED DECISION-MAKING Aged Out No longer eligibl e based on patient's age to complete this topic MENINGOCOCCAL GROUPS A/C/Y/W VACCINE Aged Out No longer eligible b ased on patient's age to complete this topic Insurance MEDICARE [facility]
--- OUTSIDE RECORDS SUMMARY | 2024-11-25 13:28 | XMS_ITS | Referral Summary ---
Author Organization [facility] Address [address] [place] [address] Care Team Providers Care Almond Blancher Name Role Phone Gayla Tellez MD Primary Care Provider [phone] Allergies Active Allergy Reactions Criticality Noted Date [...] a monitor showed possible PSVT, but the flower buncher or picker reviewed and thinks it is more likely [...] 018 Pneumococcal Polysaccharide PPV23 04/11/2020 Tdap 01/06/2021 Social History Tobacco Use Types Packs/Day Years [...] on file Legal Sex Female 5:18 AM SLEDGER Gender Identity Not on file Sexual Orientation Not on file Last Filed Vital Signs Vital Sign Reading Time Taken Comments Blood Pressure 102/64 05/17/2024 1:02 PM CDT Pulse 76 05/17/2024 1:02 PM CDT Temperature 36.4 C (97.5 F) 06/29/2022 9:56 AM SLEDGER Respiratory Rate 16 06/29/2022 9:56 AM SLEDGER Oxygen Saturation 96% 05/17/2024 1:02 PM CDT Inhaled Oxygen Concentration - - Weight 113.4 kg (250 lb) 05/17/2024 1:02 PM CDT Height 167.6 cm (5' 6) 05/17/2024 1:02 PM CDT Body Mass Index 40.35 05/17/2024 1:02 PM CDT Plan of Treatment Not on file Goals Goal Patient Goal Type Associated Problems Recent Progress Patient-Stated? Author CCM Chronic Pain Care Plan Chronic Care Management Improving( 9:58 AM SLEDGER) No Funmilayo Nieves, RAPHAEL Note: Problem: Chronic Pain Goals: 1. Minimize further functional decline 2. Maximize quality of life 3. Control pain Strategies: - Activity/exercise program recommendation - Conservative stepwise pain medicine strategy with multi-disciplinary approach - Recommend healthy lifestyle strategies and compensatory methods as needed Insurance [employer] MEDICARE HMO MEDICARE [facility] MEDICARE [facility] MEDICARE [employer] MEDICARE HMO Care Teams Almond Blancher Relationship Specialty Start Date End Date Gayla Tellez MD PCP - General Family Medicine 06/29/22
--- NOTE | 2024-11-25 13:43 | P.PNIM_ITS ---
Progress Note: A&P Assessment and Plan (1) Sepsis: Qualifiers: Sepsis type: sepsis due to unspecified organism Sepsis acute organ dysfunction status: without acute organ dysfunction Qualified Code(s): A41.9 - Sepsis, unspecified organism Code(s): A41.9 - Sepsis, unspecified organism Status: Acute Assessment and Plan: resolved, vital signs wnl, leukocytosis resolved s/p IVF likely from Pneumonia and UTI Blood culture negative and MRSA positive Continue [place], Azithromycin and Doxycycline started on room air (2) Pneumonia: Qualifiers: Laterality: left Lung location: lower lobe of lung Pneumonia type: due to unspecified organism Qualified Code(s): J18.9 - Pneumonia, unspecified organism Code(s): J18.9 - Pneumonia, unspecified organism Status: Acute Assessment and Plan: - CXR: Left basilar airspace disease, compatible with pneumonia. - started on CAP tx: Ceftriaxone and azithromycin on 11/24 - Viral PCR negative continue above care (3) Acute UTI: Code(s): N39.0 - Urinary tract infection, site not specified Status: Suspected Assessment and Plan: - UA showed 3+ leuks, 11-20 WBC, 4+ bacteria. However had many epithelial cells. Contaminant versus infection? - UC pending, follow - no previous micro available for review - started on Ceftriaxone on 11/24 monitor urine culture (4) Sustained SVT: Code(s): I47.10 - Supraventricular tachycardia, unspecified Status: Acute Assessment and Plan: - initial EKG showed SVT with moderate ST depression. Patient was converted to sinus tachycardia with a modified Valsalva maneuver in the ER. Repeat EKG showed sinus tach and resolution of ST depression. Awaiting formal reads of EKGs. - magnesium 1.8 - telemetry monitoring - consider Holter monitor at discharge to monitor for recurrent SVT episodes likely from Pneumonia (5) DM2 (diabetes mellitus, type 2): Qualifiers: Diabetes mellitus chcf insulin use: without equipment operator intermodal yard use Diabetes mellitus complication status: without complication Qualified Code(s): E11.9 - Type 2 diabetes mellitus without complications Code(s): E11.9 - Type 2 diabetes mellitus without complications Status: Chronic Assessment and Plan: - hypoglycemia protocol - POC blood glucose ACHS - home medication: Hold Ozempic (NF). - correct regimen ordered - high dose TIDWM, based off BMI - A1C ordered (6) HTN (hypertension): Qualifiers: Hypertension type: primary hypertension Qualified Code(s): I10 - Essential (primary) hypertension Code(s): I10 - Essential (primary) hypertension Status: Chronic Assessment and Plan: titrate home meds with clinical course Plan Diet: Heart healthy DVT Prophylaxis: Lovenox SQ Code Status: Full code Subjective Date/time seen: 11/25/24 13:43 Interval history: Complained of headache, intractable CT head ordered Review of Systems Review of Systems: All systems reviewed & are unremarkable except as noted in HPI and below Exam Narrative: crackles left lung base. mildly ill appearing. Const: General: comfortable and no acute distress Other: , female, elderly, mildly ill-appearing HENMT: Face/Nose/Sinus: Normal nares present Mouth: Yes moist mucous membranes Eyes: General: appearance normal, both eyes and all related structures Sclera: sclerae normal Pupils: Equal, round and reactive pupils present EOM: EOMs intact bilaterally Resp: Effort & Inspection: normal respiratory effort Other: Crackles in the left lung base, no other adventitious lung sounds. Cardio: Rate: regular rate Rhythm: regular rhythm Other: S1-S2 present without murmur, rub, ectopy GI: Other: Abdomen soft, nondistended, nontender. Normoactive bowel sounds in all quadrants. Skin: General skin exam: normal color and no rashes or lesions noted Wounds: no wounds Neuro: Cranial nerves: Yes Equal, round and reactive pupils present Speech: normal speech Motor exam (neuro): 5/5 motor strength present throughout Sensory Exam: normal sensation Other: A&O x4 Extrem: General: normal to inspection Psych: Mental Status: mental status grossly normal Affect: normal affect Other: Good insight judgment, pleasant Objective Data Vital Signs Vital Signs: Vital Signs - 24 hr 11/24/24 17:45 11/24/24 18:38 11/24/24 20:00 Temperature 98.0 F Pulse Rate 105 H 92 Respiratory Rate 18 20 Blood Pressure 122/77 119/66 Pulse Oximetry 98 97 Oxygen Delivery Room Air 11/24/24 20:00 11/24/24 20:54 11/24/24 21:24 Temperature 98.9 F Pulse Rate 107 H 80 Respiratory Rate 16 Blood Pressure 119/68 Pulse Oximetry 95 95 Oxygen Delivery Room Air 11/25/24 00:00 11/25/24 04:00 11/25/24 06:15 Temperature 98.9 F Pulse Rate 71 67 72 Respiratory Rate 16 Blood Pressure 107/61 Pulse Oximetry 98 Oxygen Delivery 11/25/24 09:42 Temperature Pulse Rate 72 Respiratory Rate Blood Pressure Pulse Oximetry Oxygen Delivery Intake/Output Intake/Output: Intake & Output 11/22/24 11/23/24 11/24/24 11/25/24 23:59 23:59 23:59 23:59 Intake Total 2300 580 Balance 2300 580 Meds/Results Medications: Active Medications Generic Name Dose Route Start Last Admin Trade Name Freq PRN Reason Stop Dose Admin Acetaminophen 650 mg 11/24/24 18:41 11/25/24 09:47 Acetaminophen 325 Mg Tablet PO 650 mg Q6H PRN Administration Mild Pain (1-3) or Fever Atorvastatin Calcium 40 mg 11/25/24 09:00 11/25/24 09:42 Atorvastatin 40 Mg Tablet PO 40 mg DAILY CAIN Administration Benzocaine 1 lozenge 11/24/24 18:41 Benzocaine/Menthol (*Bkc) 18 Ea Lozenge PO PRN PRN Sore Throat Benzonatate 100 mg 11/24/24 18:41 11/25/24 09:42 Benzonatate 100 Mg Capsule PO 100 mg TID PRN Administration Cough Citalopram Hydrobromide 20 mg 11/25/24 09:00 11/25/24 09:42 Citalopram Hydrobromide 20 Mg Tablet PO 20 mg DAILY CAIN Administration Dextrose 12.5 gm 11/24/24 21:51 Dextrose 50% 25 Gm/50 Ml Syringe IV PUSH PRN PRN Hypoglycemia Protocol Enoxaparin Sodium 40 mg 11/25/24 09:00 11/25/24 09:42 Enoxaparin 40 Mg/0.4 Ml Syringe SUB-Q 40 mg DAILY CAIN Administration Glucagon 1 mg 11/24/24 21:51 Glucagon For Inj 1 Mg Vial IM PRN PRN Hypoglycemia Protocol Glucose 15 gm 11/24/24 21:51 Glucose Oral Gel 15 Gm Of Glucse In 37.5 Gm Tube PO PRN PRN Hypoglycemia Protocol Guaifenesin 600 mg 11/24/24 21:00 11/25/24 09:42 Guaifenesin 12 Hr 600 Mg Tabcr PO 600 mg Q12HR CAIN Administration Ceftriaxone Sodium 1 gm in 50 mls @ 100 mls/hr 11/25/24 16:00 Rocephin 1 Gm/Ns 50 Ml IVPB Q24H CAIN Azithromycin 500 mg in 250 mls @ 250 mls/hr 11/25/24 18:00 Zithromax IVPB Q24H [facility] Dextrose 1,000 mls @ 100 mls/hr 11/24/24 21:51 Dextrose 5% 1,000 Ml IVPB PRN PRN Hypoglycemia Protocol Insulin Aspart 4 - 8 units 11/25/24 08:00 11/25/24 12:01 Insulin Aspart (*Bkc) 100 Units/Ml SUB-Q Not Given TIDWM [facility] Protocol Levothyroxine Sodium 75 mcg 11/25/24 06:30 11/25/24 06:29 Levothyroxine Sodium 75 Mcg Tablet PO 75 mcg DAILY@0630 CAIN Administration Metoprolol Succinate 25 mg 11/25/24 09:00 11/25/24 09:42 Metoprolol Succinate Ext Rel 25 Mg Tabcr PO 25 mg DAILY CAIN Administration Polyethylene Glycol 17 gm 11/24/24 20:45 Polyethylene Glycol 3350 17 Gm Powd.Pack PO DAILY PRN constipation Spironolactone 25 mg 11/25/24 09:00 11/25/24 09:42 Spironolactone 25 Mg Tablet PO 25 mg DAILY CAIN Administration Torsemide 10 mg 11/24/24 20:45 11/25/24 09:41 Torsemide 10 Mg Tablet PO 10 mg DAILY PRN Administration swelling/weight gain Radiology Results: ITS Impressions Chest X-Ray 11/24/24 14:26 Impression: 1: Left basilar airspace disease, compatible with pneumonia. Labs Labs: Laboratory Results - last 24 hr 11/24/24 11/24/24 11/24/24 13:37 13:37 13:37 WBC 14.3 H RBC 4.89 Hgb 14.1 Hct 42.9 MCV 87.7 MCH 28.8 MCHC 32.9 RDW 13.8 Plt Count 235 MPV 10.4 Immature Gran % (Auto) 0.3 Neut % (Auto) 81.5 H Lymph % (Auto) 12.6 L [place] % (Auto) 4.7 Eos % (Auto) 0.6 Baso % (Auto) 0.3 Lymph # (Auto) 1.80 [place] # (Auto) 0.7 H Eos # (Auto) 0.1 Baso # (Auto) 0.1 Abs Immat Gran (auto) 0.05 H Absolute Neuts (auto) 11.7 H Absolute Nucleated RBC 0.000 Nucleated RBC % 0.0 PT 13.8 INR 1.0 APTT 32.1 Sodium 137 137 Potassium 4.4 4.4 Chloride 103 Carbon Dioxide Anion Gap BUN Creatinine Estim Creat Clear Calc Estimated GFR Glucose POC Capillary Glucose Hemoglobin A1c Lactic Acid Calcium Magnesium Total Bilirubin AST ALT Alkaline Phosphatase C-Reactive Protein NT-Pro-B Natriuret Pep Total Protein Albumin TSH (Reflex) Urine Color Urine Appearance Urine pH Ur Specific [place] Urine Protein Urine Glucose (UA) Urine Ketones Ur Blood (Man) Urine Nitrate Urine Bilirubin Urine Urobilinogen Leukocyte Esterase Rfl Urine RBC Urine WBC Ur Squamous Epith Cells Urine Bacteria Urine Casts Influenza A (RT-PCR) Influenza B (RT-PCR) RSV (RT-PCR) SARS-CoV-2 RNA (RT-PCR) 11/24/24 11/24/24 11/24/24 13:37 13:37 13:37 WBC RBC Hgb Hct MCV MCH MCHC RDW Plt Count MPV Immature Gran % (Auto) Neut % (Auto) Lymph % (Auto) [place] % (Auto) Eos % (Auto) Baso % (Auto) Lymph # (Auto) [place] # (Auto) Eos # (Auto) Baso # (Auto) Abs Immat Gran (auto) Absolute Neuts (auto) Absolute Nucleated RBC Nucleated RBC % PT INR APTT Sodium Potassium Chloride 103 Carbon Dioxide 20 L 20 L Anion Gap 14 H 14 H BUN 17 Creatinine Estim Creat Clear Calc Estimated GFR Glucose POC Capillary Glucose Hemoglobin A1c Lactic Acid Calcium Magnesium Total Bilirubin AST ALT Alkaline Phosphatase C-Reactive Protein NT-Pro-B Natriuret Pep Total Protein Albumin TSH (Reflex) Urine Color Urine Appearance Urine pH Ur Specific [place] Urine Protein Urine Glucose (UA) Urine Ketones Ur Blood (Man) Urine Nitrate Urine Bilirubin Urine Urobilinogen Leukocyte Esterase Rfl Urine RBC Urine WBC Ur Squamous Epith Cells Urine Bacteria Urine Casts Influenza A (RT-PCR) Influenza B (RT-PCR) RSV (RT-PCR) SARS-CoV-2 RNA (RT-PCR) 11/24/24 11/24/24 11/24/24 13:37 13:37 13:37 WBC RBC Hgb Hct MCV MCH MCHC RDW Plt Count MPV Immature Gran % (Auto) Neut % (Auto) Lymph % (Auto) [place] % (Auto) Eos % (Auto) Baso % (Auto) Lymph # (Auto) [place] # (Auto) Eos # (Auto) Baso # (Auto) Abs Immat Gran (auto) Absolute Neuts (auto) Absolute Nucleated RBC Nucleated RBC % PT INR APTT Sodium Potassium Chloride Carbon Dioxide Anion Gap BUN 17 Creatinine 1.17 H 1.17 H Estim Creat Clear Calc 47 47 Estimated GFR 45 L Glucose POC Capillary Glucose Hemoglobin A1c Lactic Acid Calcium Magnesium Total Bilirubin AST ALT Alkaline Phosphatase C-Reactive Protein NT-Pro-B Natriuret Pep Total Protein Albumin TSH (Reflex) Urine Color Urine Appearance Urine pH Ur Specific [place] Urine Protein Urine Glucose (UA) Urine Ketones Ur Blood (Man) Urine Nitrate Urine Bilirubin Urine Urobilinogen Leukocyte Esterase Rfl Urine RBC Urine WBC Ur Squamous Epith Cells Urine Bacteria Urine Casts Influenza A (RT-PCR) Influenza B (RT-PCR) RSV (RT-PCR) SARS-CoV-2 RNA (RT-PCR) 11/24/24 11/24/24 11/24/24 13:37 13:37 13:37 WBC RBC Hgb Hct MCV MCH MCHC RDW Plt Count MPV Immature Gran % (Auto) Neut % (Auto) Lymph % (Auto) [place] % (Auto) Eos % (Auto) Baso % (Auto) Lymph # (Auto) [place] # (Auto) Eos # (Auto) Baso # (Auto) Abs Immat Gran (auto) Absolute Neuts (auto) Absolute Nucleated RBC Nucleated RBC % PT INR APTT Sodium Potassium Chloride Carbon Dioxide Anion Gap BUN Creatinine Estim Creat Clear Calc Estimated GFR 45 L Glucose 131 H 131 H POC Capillary Glucose Hemoglobin A1c Lactic Acid 1.7 Calcium 9.6 9.6 Magnesium Total Bilirubin 1.0 AST ALT Alkaline Phosphatase C-Reactive Protein NT-Pro-B Natriuret Pep Total Protein Albumin TSH (Reflex) Urine Color Urine Appearance Urine pH Ur Specific [place] Urine Protein Urine Glucose (UA) Urine Ketones Ur Blood (Man) Urine Nitrate Urine Bilirubin Urine Urobilinogen Leukocyte Esterase Rfl Urine RBC Urine WBC Ur Squamous Epith Cells Urine Bacteria Urine Casts Influenza A (RT-PCR) Influenza B (RT-PCR) RSV (RT-PCR) SARS-CoV-2 RNA (RT-PCR) 11/24/24 11/24/24 11/24/24 13:37 13:37 13:37 WBC RBC Hgb Hct MCV MCH MCHC RDW Plt Count MPV Immature Gran % (Auto) Neut % (Auto) Lymph % (Auto) [place] % (Auto) Eos % (Auto) Baso % (Auto) Lymph # (Auto) [place] # (Auto) Eos # (Auto) Baso # (Auto) Abs Immat Gran (auto) Absolute Neuts (auto) Absolute Nucleated RBC Nucleated RBC % PT INR APTT Sodium Potassium Chloride Carbon Dioxide Anion Gap BUN Creatinine Estim Creat Clear Calc Estimated GFR Glucose POC Capillary Glucose Hemoglobin A1c Lactic Acid Calcium Magnesium Total Bilirubin 1.0 AST 25 25 ALT 25 25 Alkaline Phosphatase 71 C-Reactive Protein NT-Pro-B Natriuret Pep Total Protein Albumin TSH (Reflex) Urine Color Urine Appearance Urine pH Ur Specific [place] Urine Protein Urine Glucose (UA) Urine Ketones Ur Blood (Man) Urine Nitrate Urine Bilirubin Urine Urobilinogen Leukocyte Esterase Rfl Urine RBC Urine WBC Ur Squamous Epith Cells Urine Bacteria Urine Casts Influenza A (RT-PCR) Influenza B (RT-PCR) RSV (RT-PCR) SARS-CoV-2 RNA (RT-PCR) 11/24/24 11/24/24 11/24/24 13:37 13:37 13:37 WBC RBC Hgb Hct MCV MCH MCHC RDW Plt Count MPV Immature Gran % (Auto) Neut % (Auto) Lymph % (Auto) [place] % (Auto) Eos % (Auto) Baso % (Auto) Lymph # (Auto) [place] # (Auto) Eos # (Auto) Baso # (Auto) Abs Immat Gran (auto) Absolute Neuts (auto) Absolute Nucleated RBC Nucleated RBC % PT INR APTT Sodium Potassium Chloride Carbon Dioxide Anion Gap BUN Creatinine Estim Creat Clear Calc Estimated GFR Glucose POC Capillary Glucose Hemoglobin A1c Lactic Acid Calcium Magnesium Total Bilirubin AST ALT Alkaline Phosphatase 71 C-Reactive Protein 3.1 H NT-Pro-B Natriuret Pep Total Protein 7.3 7.0 Albumin 4.5 4.5 TSH (Reflex) 2.720 Urine Color Urine Appearance Urine pH Ur Specific [place] Urine Protein Urine Glucose (UA) Urine Ketones Ur Blood (Man) Urine Nitrate Urine Bilirubin Urine Urobilinogen Leukocyte Esterase Rfl Urine RBC Urine WBC Ur Squamous Epith Cells Urine Bacteria Urine Casts Influenza A (RT-PCR) Negative Influenza B (RT-PCR) Negative RSV (RT-PCR) Negative SARS-CoV-2 RNA (RT-PCR) Negative 11/24/24 11/24/24 11/25/24 13:41 15:23 04:43 WBC 9.2 RBC 4.27 Hgb 12.4 Hct 37.6 MCV 88.1 MCH 29.0 MCHC 33.0 RDW 13.8 Plt Count 182 MPV 9.9 Immature Gran % (Auto) 0.5 Neut % (Auto) 69.5 Lymph % (Auto) 22.2 [place] % (Auto) 3.7 Eos % (Auto) 3.9 Baso % (Auto) 0.2 Lymph # (Auto) 2.05 [place] # (Auto) 0.3 Eos # (Auto) 0.4 H Baso # (Auto) 0.0 Abs Immat Gran (auto) 0.05 H Absolute Neuts (auto) 6.4 Absolute Nucleated RBC 0.000 Nucleated RBC % 0.0 PT INR APTT Sodium 140 Potassium 3.6 Chloride 108 H Carbon Dioxide 25 Anion Gap 7 BUN 17 Creatinine 1.22 H Estim Creat Clear Calc 45 Estimated GFR 43 L Glucose 105 POC Capillary Glucose Hemoglobin A1c 5.7 Lactic Acid Calcium 8.6 Magnesium 1.8 Total Bilirubin 1.0 AST 21 ALT 20 Alkaline Phosphatase 51 C-Reactive Protein NT-Pro-B Natriuret Pep 178 H Total Protein 6.0 L Albumin 3.5 TSH (Reflex) Urine Color Yellow Urine Appearance Cloudy H Urine pH 5.5 Ur Specific [place] 1.025 Urine Protein Trace Urine Glucose (UA) Negative Urine Ketones Trace H Ur Blood (Man) Negative Urine Nitrate Negative Urine Bilirubin Negative Urine Urobilinogen 1.0 Leukocyte Esterase Rfl 3+ H Urine RBC 0-2 Urine WBC 11-20 H Ur Squamous Epith Cells Many H Urine Bacteria 4+ H Urine Casts 3-5 Influenza A (RT-PCR) Influenza B (RT-PCR) RSV (RT-PCR) SARS-CoV-2 RNA (RT-PCR) 11/25/24 11/25/24 07:52 11:45 WBC RBC Hgb Hct MCV MCH MCHC RDW Plt Count MPV Immature Gran % (Auto) Neut % (Auto) Lymph % (Auto) [place] % (Auto) Eos % (Auto) Baso % (Auto) Lymph # (Auto) [place] # (Auto) Eos # (Auto) Baso # (Auto) Abs Immat Gran (auto) Absolute Neuts (auto) Absolute Nucleated RBC Nucleated RBC % PT INR APTT Sodium Potassium Chloride Carbon Dioxide Anion Gap BUN Creatinine Estim Creat Clear Calc Estimated GFR Glucose POC Capillary Glucose 117 H 104 Hemoglobin A1c Lactic Acid Calcium Magnesium Total Bilirubin AST ALT Alkaline Phosphatase C-Reactive Protein NT-Pro-B Natriuret Pep Total Protein Albumin TSH (Reflex) Urine Color Urine Appearance Urine pH Ur Specific [place] Urine Protein Urine Glucose (UA) Urine Ketones Ur Blood (Man) Urine Nitrate Urine Bilirubin Urine Urobilinogen Leukocyte Esterase Rfl Urine RBC Urine WBC Ur Squamous Epith Cells Urine Bacteria Urine Casts Influenza A (RT-PCR) Influenza B (RT-PCR) RSV (RT-PCR) SARS-CoV-2 RNA (RT-PCR) Quality VTE Prophylaxis VTE prophylaxis: pharmacologic ordered
--- OUTSIDE RECORDS SUMMARY | 2024-11-25 14:08 | XMS_ITS | Clinical Summary ---
Author Organization [facility] Address [address] [place] [address] Care Team Providers Care Kardex Clerk Name Role Phone Gayla Tellez MD Primary Care Provider [phone] Allergies Active Allergy Reactions Criticality Noted Date [...] a monitor showed possible PSVT, but the animal maintenance supervisor reviewed and thinks it is more likely [...] on file Legal Sex Female 5:18 AM LOADING DOCK HAND Gender Identity Not on file Sexual Orientation Not on file Obstetrics History Last Filed Vital Signs Vital Sign Reading Time Taken Comments Blood Pressure 102/64 05/17/2024 1:02 PM CDT Pulse 76 05/17/2024 1:02 PM CDT Temperature 36.4 C (97.5 F) 06/29/2022 9:56 AM LOADING DOCK HAND Respiratory Rate 16 06/29/2022 9:56 AM LOADING DOCK HAND Oxygen Saturation 96% 05/17/2024 1:02 PM CDT [...] Plan Chronic Care Management Improving( 9:58 AM LOADING DOCK HAND) Funmilayo Borja, RN Note: Problem: Chronic Pain Goals: 1. Minimize further functional decline 2. Maximize quality of life 3. Control pain Strategies: - Activity/exercise program recommendation - Conservative stepwise pain medicine strategy with multi-disciplinary approach - Recommend healthy lifestyle strategies and compensatory methods as needed Insurance [employer] MEDICARE HMO MEDICARE [facility] MEDICARE [facility] MEDICARE [facility] MEDICARE O Member Subscriber Plan / Payer (Ef fective 2024-Present) Name:Talia Cox Harish Relation to Subscriber:Self Name:Talia Cox Payer ID:[id number] (NAIC) Type:MEDICARE RISK OTHER Address: [place] [id number] [place] [id number] Care Teams Kardex Clerk Relationship Specialty Start Date End Date Gayla Tellez MD PCP - General Family Medicine 06/29/22
--- OUTSIDE RECORDS SUMMARY | 2024-11-25 14:08 | XMS_ITS | Encounter Summary ---
Author Organization [facility] Address Formerly [facility] [place] [address] Care Team Providers Care Product Support Manager Name Role Phone Jose Alejandro Hartmann MD Unavailable Russ John DPKermit Unavailable [phone] Lucio Joe MD Unavailable [phone] Gayla Tellez MD Unavailable [phone] Gayla Tellez MD Primary Care Provider + Shazia Valenzuela PA-C Unavailable [phone] Shazia Valenzuela PA-C Primary Care Provider [phone] Encounter Details Date Type Department Care Team (Late st Contact Info) Description 06/06/2018 Abstract [facility] Conversion Shazia Valenzuela PA-C [address] [facility] [address] [place] [address] Social History Tobacco Use Types Packs/Day Years [...] of these test. Thank you, Shazia RM NERS documented in this encounter Plan of Treatment Upcoming Encounters Date Type Department Care Team (Late st Contact Info) Description 02/07/2025 11:20 AM CDT Office Visit [facility] [address] [place] [address] Shazia Valnezuela PA-C [address] [facility] [address] [place], [place] [address] documented as of this encounter Visit Diagnoses Not on filedocumented in this encounter Additional Health Concerns Infection Onset Date Last Indicated Resolved Time COVID-19 Rule Out 11/30/2023 11/30/2023 11/30/2023 3:22 PM CDT documented as of this encounter Care Teams Product Support Manager Relationship Specialty Start Date End Date Gayla Tellez MD [address] [place] [address] PCP - General FAMILY PRACTICE 07/08/22 02/24/23 Shazia Valenzuela PA-C [address] [facility] [address] [place] [address] PCP - General PHYSICIAN OIL SCOUT 02/25/23 Jose Alejandro Hartmann MD [address] [facility] [address] [place] [address] Consulting Physician GASTROENTEROLOGY 07/10/18 Russ John DPM [address] [facility] [address] [place] [address] Referring Physician PODIATRY/SURGERY 05/25/20 Lucio Joe MD [address] [place] [address] CARDIOVASCULAR DISEASE 10/03/20 Gayla Tellez MD [address] [place] [address] FAMILY PRACTICE 07/08/22 07/08/22 Shazia Valenzuela PA-C [address] [place] [address], [address] [place] [address] Physician Sagger Soak PHYSICIAN OIL SCOUT 02/25/23 Dr. Ahumada DERMATOLOGY 07/10/18 Dr. Cruz CHIROPRACTIC 07/10/18 Violette Chandler Garment Patternmaker 02/14/22 documented as of this encounter
--- OUTSIDE RECORDS SUMMARY | 2024-11-25 14:08 | XMS_ITS | Referral Summary ---
Author Organization [facility] Address [address] [place] [address] Care Team Providers Care Firewall Engineer Name Role Phone Gayla Tellez MD Primary Care Provider [phone] Allergies Active Allergy Reactions Criticality Noted Date [...] a monitor showed possible PSVT, but the risk control analyst reviewed and thinks it is more likely [...] on file Legal Sex Female 5:18 AM ADMITTED ATTORNEYS Gender Identity Not on file Sexual Orientation Not on file Last Filed Vital Signs Vital Sign Reading Time Taken Comments Blood Pressure 102/64 05/17/2024 1:02 PM CDT Pulse 76 05/17/2024 1:02 PM CDT Temperature 36.4 C (97.5 F) 06/29/2022 9:56 AM ADMITTED ATTORNEYS Respiratory Rate 16 06/29/2022 9:56 AM ADMITTED ATTORNEYS Oxygen Saturation 96% 05/17/2024 1:02 PM CDT [...] Plan Chronic Care Management Improving( 9:58 AM ADMITTED ATTORNEYS) No Funmilayo Nieves, RAPHAEL Note: Problem: Chronic Pain Goals: 1. Minimize further functional decline 2. Maximize quality of life 3. Control pain Strategies: - Activity/exercise program recommendation - Conservative stepwise pain medicine strategy with multi-disciplinary approach - Recommend healthy lifestyle strategies and compensatory methods as needed Insurance [employer] MEDICARE HMO MEDICARE [facility] MEDICARE [facility] MEDICARE HU[employer] MEDICARE HMO Care Teams Firewall Engineer Relationship Specialty Start Date End Date Gayla Tellez MD PCP - General Family Medicine 06/29/22
--- OUTSIDE RECORDS SUMMARY | 2024-11-25 14:08 | XMS_ITS | Encounter Summary ---
Author Organization [facility] Address [address] [place] [address] Care Team Providers Care Warehouse Laborer Name Role Phone Jose Alejandro Hartmann MD Unavailable Russ John DPM Unavailable [phone] Lucio Joe MD Unavailable [phone] Gayla Tellez MD Unavailable [phone] Gayla Tellez MD Primary Care Provider + Shazia Valenzuela PA-C Unavailable [phone] Shazia Valenzuela PA-C Primary Care Provider [phone]- [phone] Encounter Details Date Type Department Care Team (Late st Contact Info) Description 08/31/2017 Abstract [facility] Lucien Lr MD 9401 [facility] 112 [place] [address] Social History Tobacco Use Types [...] AM CST Aug 31, 2017 Talia Cox [address] [place] [address] Dear Talia Cox, Thank you for choosing [...] please feel free to call the office [phone], Option #3 or Option #1 to make an appointment to discuss these results. Respectfully Yours, Electronically Signed by: Lucien Lr MD Cc: Patients Medical Record CATION SERVICES SPECIALIST * Letter - Lucien Lr MD - 08/31/2017 12:00 AM CST 08-31-2017 , Talia Cox [address] [place] [address] : 1950 Lab Order TSH with Reflex T4 E03.9 Hypothyroidism, unspecified Lab Order CMP; Lipid profile E78.4 Hyperlipidemia Lab Order Hemoglobin A1C R73.01 Impaired Fasting Glucose Recheck these labs in 6 months (February) Please remember to fast 8-10 hours before labs Normal [x] Stat [] CATION SERVICES SPECIALIST * Letter - Lucien Lr MD - 08/31/2017 12:00 AM CST 08-31-2017 , Talia Cox [address] [place] [address] : 1950 Lab Order CMP; Lipid Panel E78.4 Other hyperlipidemia Normal [] Stat [] CATION SERVICES SPECIALIST documented in this encounter Plan of Treatment Upcoming Encounters Date Type Department Care Team (Late st Contact Info) Description 02/07/2025 11:20 AM CDT Office Visit [facility] [address] [place] [address] Shazia Valenzuela PA-C [address] [address] documented as of this encounter Visit Diagnoses Not on filedocumented in this encounter Additional Health Concerns Infection Onset Date Last Indicated Resolved Time COVID-19 Rule Out 11/30/2023 11/30/2023 11/30/2023 3:22 PM CDT documented as of this encounter Care Teams Warehouse Laborer Relationship Specialty Start Date End Date Gayla Tellez MD [address] [place] [address] PCP - General FAMILY PRACTICE 07/08/22 02/24/23 Shazia Valenzuela PA-C [address] [address] PCP - General PHYSICIAN BRUSH FINISHER 02/25/23 Jose Alejandro Hartmann MD [address] [address] Consulting Physician GASTROENTEROLOGY 07/10/18 Russ John DPM [address] [address] Referring Physician PODIATRY/SURGERY 05/25/20 Lucio Joe MD 9515 [place], [place] [id number] CARDIOVASCULAR DISEASE 10/03/20 Gayla Tellez MD [address] [place] [address] FAMILY PRACTICE 07/08/22 07/08/22 Shazia Valenzuela PA-C [address] [place] [address], [address] [place] [address] Physician Database Tester PHYSICIAN BRUSH FINISHER 02/25/23 Dr. Ahumada DERMATOLOGY 07/10/18 Dr. Cruz CHIROPRACTIC 07/10/18 Violette Chandler Rubber Turner 02/14/22 documented as of this encounter
--- OUTSIDE RECORDS SUMMARY | 2024-11-25 14:08 | XMS_ITS | Encounter Summary ---
Author Organization [facility] Address [facility] [place] [address] Care Team Providers Care Doll Wigs Hackler Name Role Phone Jose Alejandro Hartmann MD Unavailable Russ John DPM Unavailable [phone] Lucio Joe MD Unavailable [phone] Shazia Valenzuela PA-C Unavailable [phone] Shazia Valenzuela PA-C Primary Care Provider [phone] Encounter Details Date Type Department Care Team (Latest Contact Info) Description 06/06/2024 Vilma Message Enc [facility] Multispecialty Care - [address] [id number] Vilma [facility] Provider appointment rescheduled Social History Tobacco Use [...] 02/07/2025 11:20 AM CDT Office Visit [facility] 94[address] [place] [address] Shazia Valenzuela PA-C 9401 [facility] 112 [place] [address] documented as of this encounter Visit Diagnoses Not on filedocumented in this encounter Additional Health Concerns Assessment Noted Time PHQ-9 Depression Total Score: 1 11/01/19 22 11:11 AM CDT documented as of this encounter Care Teams Doll Wigs Hackler Relationship Specialty Start Date End Date Shazia Valenzuela PA-C 9401 [facility] 112 [place] [address] PCP - General PHYSICIAN PROSTHETICS ASSISTANT 02/25/23 Jose Alejandro Hartmann MD 3 [facility] 5000 [place] [address] Consulting Physician GASTROENTEROLOGY 07/10/18 Russ John DPM 3 [facility] 5000 [place] [address] Referring Physician PODIATRY/SURGERY 05/25/20 Lucio Joe MD [address] [place] [address] CARDIOVASCULAR DISEASE 10/03/20 Shazia Valenzuela PA-C [address] [place] [address], 1st [place] [address] Physician Forming Fixer PHYSICIAN PROSTHETICS ASSISTANT 02/25/23 Dr. Ahumada DERMATOLOGY 07/10/18 Dr. Cruz CHIROPRACTIC 07/10/18 Violette Chandler Cook Room Supervisor 02/14/22 documented as of this encounter
--- OUTSIDE RECORDS SUMMARY | 2024-11-25 14:08 | XMS_ITS | Encounter Summary ---
Author Organization [facility] Address [address] [place] [address] Care Team Providers Care Recreation Activities Coordinator Name Role Phone Jose Alejandro Hartmann MD Unavailable Russ John DPKermit Unavailable [phone] Lucio Joe MD Unavailable [phone] Gayla Tellez MD Unavailable [phone] Gayla Tellez MD Primary Care Provider + Shazia Valenzuela PA-C Unavailable [phone] Shazia Valenzuela PA-C Primary Care Provider + [phone] Encounter Details Date Type Department Care Team (Late st Contact Info) Description 02/14/2018 Abstract [facility] Conversion Shazia Valenzuela PA-C 9401 [facility] 112 [place] [address] Social History Tobacco Use Types Packs/Day Years [...] 12:00 AM CDT 02-14-2018 , Talia Cox [facility]4 [place] [address] : 1950 Radiology: CAT Scan Chest w/ contrast R91.8 Other nonspecific abnormal finding of lung field Fasting [] Non-Fasting [] Normal [x] Stat [] IC SERVICE DIRECTOR documented in this encounter Plan of Treatment Upcoming Encounters Date Type Department Care Team (Late st Contact Info) Description 02/07/2025 11:20 AM CDT Office Visit [facility] 9401 [place] [address] Shazia Valenzuela PA-C 9401 [facility] [place] [address] [place] [address] documented as of this encounter Visit Diagnoses Not on filedocumented in this encounter Additional Health Concerns Infection Onset Date Last Indicated Resolved Time COVID-19 Rule Out 11/30/2023 11/30/2023 11/30/2023 3:22 PM CDT documented as of this encounter Care Teams Recreation Activities Coordinator Relationship Specialty Start Date End Date Gayla Tellez MD [address] [place] [address] PCP - General FAMILY PRACTICE 07/08/22 02/24/23 Shazia Valenzuela PA-C [address] [place] [address] [place] [address] [place] [address] PCP - General PHYSICIAN UMBRELLA FINISHER 02/25/23 Jose Alejandro Hartmann MD 3 [facility] [place] [address] [place] [address] Consulting Physician GASTROENTEROLOGY 07/10/18 Russ John DPM [address] [address] Referring Physician PODIATRY/SURGERY 05/25/20 Lucio Joe MD 9515 [place] [address] CARDIOVASCULAR DISEASE 10/03/20 Gayla Tellez MD [address]250 [place] [address] FAMILY PRACTICE 07/08/22 07/08/22 Shazia Valenzuela PA-C [address] [place] [address], [address] [place] [address] Physician Idea Worker PHYSICIAN UMBRELLA FINISHER 02/25/23 Dr. Ahumada DERMATOLOGY 07/10/18 Dr. Cruz CHIROPRACTIC 07/10/18 Violette Chandler Advanced Manufacturing Consultant 02/14/22 documented as of this encounter
--- OUTSIDE RECORDS SUMMARY | 2024-11-25 14:08 | XMS_ITS | Encounter Summary ---
Author Organization [facility] Address [address] [place] [address] Care Team Providers Care Warp Drawer Name Role Phone Jose Alejandro Hartmann MD Unavailable Russ John DPKermit Unavailable Lucio Joe MD Unavailable [phone] Gayla Tellez MD Unavailable [phone] Gayla Tellez MD Primary Care Provider + Shazia Valenzuela PA-C Unavailable [phone] Shazia Valenzuela PA-C Primary Care Provider [phone]- [phone] Encounter Details Date Type Department Care Team (Late st Contact Info) Description 01/18/2018 Abstract [facility] Conversion Shazia Valenzuela PA-C 9401 [facility] 112 [place] [address] Social History Tobacco Use Types Packs/Day Years [...] AM CDT 01-21-2018 , Talia Cox [address] [place] [address] : 1950 Radiology: Mammogram Diagnostic Bilateral Bone density Z12.31 Encntr screen mammogram for malignant neoplasm of breast N95.9 Unspecified menopausal and perimenopausal disorder Fasting [] Non-Fasting [] Normal [x] Stat [] AL HEALTH WORKER * Letter - Shazia Valenzuela PA-C - 01/18/2018 12:00 AM CDT Jan 18, 2018 Talia Cox [address] [place] [address] Dear Talia Cox, Thank you for choosing [facility] for your health care needs. We appreciate the opportunity to help you maintain your well being. You recently had lab work done on 01/04/18. Your results came back normal. Please remember to follow up as discussed at your last appointment .If you have any questions please feel free to call the office at [phone], Option #3 or Option #1 to make an appointment to discuss these results. Respectfully Yours, Electronically Signed by: Shazia RM Cc: Patients Medical Record AL HEALTH WORKER documented in this encounter Plan of Treatment Upcoming Encounters Date Type Department Care Team (Late st Contact Info) Description 02/07/2025 11:20 AM CDT Office Visit [facility] [address] [place] [address] Shazia Valenzuela PA-C [address] [place] [address] [place], [place] [address] documented as of this encounter Visit Diagnoses Not on filedocumented in this encounter Additional Health Concerns Infection Onset Date Last Indicated Resolved Time COVID-19 Rule Out 11/30/2023 11/30/2023 11/30/2023 3:22 PM CDT documented as of this encounter Care Teams Warp Drawer Relationship Specialty Start Date End Date Gayla Tellez MD [address] [place] [address] PCP - General FAMILY PRACTICE 07/08/22 02/24/23 Shazia Valenzuela PA-C [address] [place] [id number] PCP - General PHYSICIAN SHEARING MACHINE FEEDER 02/25/23 Jose Alejandro Hartmann MD 3 [facility] 5000 [place] [address] Consulting Physician GASTROENTEROLOGY 07/10/18 Russ John DPM 3 [facility] [address] [place] [address] Referring Physician PODIATRY/SURGERY 05/25/20 Lucio Joe MD 9515 [place] [address] CARDIOVASCULAR DISEASE 10/03/20 Gayla Tellez MD [address] [place] [address] FAMILY PRACTICE 07/08/22 07/08/22 Shazia Valenzuela PA-C [address] [place] [address], 1[address] [place] [address] Physician Stock Speculator PHYSICIAN SHEARING MACHINE FEEDER 02/25/23 Dr. Ahumada DERMATOLOGY 07/10/18 Dr. Cruz CHIROPRACTIC 07/10/18 Violette Chandler Manager Transportation 02/14/22 documented as of this encounter
--- OUTSIDE RECORDS SUMMARY | 2024-11-25 14:09 | XMS_ITS | Clinical Summary ---
Author Organization [facility] Address [facility] [place] [address] Care Team Providers Care Internet Manager Name Role Phone Jose Alejandro Hartmann MD Unavailable Russ John DPKermit Unavailable [phone] Lucio Joe MD Unavailable Shazia Patiño PA-C Unavailable [phone] Shazia Patiño PA-C Primary Care Provider [phone] Allergies Active Allergy Reactions Criticality Noted Date Comments Bupropion Other (see comment) 12/14/2011 Sore throat Lisinopril Cough 10/03/2020 Metformin GI Upset 01/06/2021 Medications CPAP DME DEVICE [id number] 12Active Active aspirin 81 MG chewable tablet [...] kidney disease 09/03/2021 CHF (congestive heart failure) ([facility]) 06/06/2020 Chondromalacia of patella 05/17/2018 Primary osteoarthritis of both knees 05/17/2018 Lower extremity edema 02/10/2018 Anxiety 03/16/2014 Overview (07/07/2018): Date Onset: 03/16/2014 Depression 12/14/2011 Overview (07/07/2018): declines meds, encouraged counseling Hyperlipidemia 12/14/2011 Hypertension, essential 12/14/2011 Hypothyroidism 12/14/2011 Morbid obesity 12/14/2011 Obstructive sleep apnea 12/14/2011 Overview (07/07/2018): Date Onset: 2009, wears cpap Diabetes ([facility]) SVT (supraventricular tachycardia) ([facility]) Atrial fibrillation ([facility]) Overview (04/11/2020): Seen by cardiology after a monitor showed possible PSVT, but the shake loader reviewed and thinks it is more likely atrial fibrillation, but it was only a few second run of this about 5 seconds. He does not recommend any further evaluation or treatment of this unless she has symptoms at the time or if its lasting greater than 6 minutes. (HFpEF) heart failure with p reserved ejection fraction ([facility]) Resolved Problems Problem Noted Date Diagnosed Date Resolved Date Equinus deformity of both feet 02/10/2018 07/07/2018 Plantar fasciitis 02/10/2018 07/07/2018 Talipes calcaneovalgus 02/10/201807/07 Gastro-esophageal reflux dis ease without esophagitis 12/14/2011 07/07/2018 Hiatal hernia 04/30/2010 07/07/2018 Overview (07/07/2018): Date Onset: 02/25/2012 Encounters Date Type Department Care Team Description 11/03/2024 Telephone [facility] [address] [place] [address] Shazia Patiño PA-C Results (XR Clavicle ) 11/02/2024 12:12 PM CDT - 11/02/2024 11:59 PM CDT Hospital Encounter [facility] [address] [place], [place] [phone] Shazia Patiño PA-C Discharge Disposition: Home or Self Care (Routine Discharge) 11/02/2024 11:20 AM CDT Office Visit [facility] [address] [place] [address] Shazia Patiño PA-C Follow Up [...] Description 02/07/2025 11:20 AM CDT Office Visit [facility] [address] [place] [address] Shazia Patiño PA-C [address] [place] [address] [place] [address] Health Maintenance Due Date Last Done Comments RSV Immunization or 60+ Years (1 - Risk 60-74 years 1-dose series) 2010 Annual Medicare Wellness Visit 2015 Diabetes: Retinopathy Eye Exam 02/03/2024 02/02/2022 COVID-19 Vaccine ( season) 2024 07/08/2021, 11/01/2020, 10/04/2020 PHQ-2 (Physician [place]) 07/26/2024 11/30/2023 Hemoglobin A1C 09/10/2024 03/10/2024, 08/2022, [...] this topic Medical Devices Implanted Type Area Chief Of Safety And Protection Device Identifier Shelf Expiration Date Model / [...] 02/02/2022 HEPATITIS C ANTIBODY 08/11/2018 10:58 AM CARPET FINISHING SUPERVISOR COLONOSCOPY/EGD GENERIC (SCAN ORDER) 03/05/2015 from Last [...] 8:51 AM Narrative 11/03/2024 8:53 AM CDT [address] [address] Procedure(s): XR CLAVICLE RT, XR SHOULDER RT [...] Procedure Note Alex Ferreira MD - 11/03/2024 [facility] Naomi [address] [place] [address] Procedure(s): XR CLAVICLE RT, XR SHOULDER RT [...] 8:51 AM Narrative 11/03/2024 8:53 AM CDT [facility] [address] [place] [address] Procedure(s): XR CLAVICLE RT, XR SHOULDER RT [...] Procedure Note Alex Ferreira MD - 11/03/2024 [facility] [address] [place] [address] Procedure(s): XR CLAVICLE RT, XR SHOULDER RT [...] 10:34 AM Narrative 05/23/2024 10:36 AM CDT [address] [address] EXAMINATION: BILATERAL SCREENING MAMMOGRAM CLINICAL INDICATION: 73 [...] Shazia Patiño PA-C LABORATORY Final Resu lt [facility] [address] [place] [address], [place] [phone] * A1C (BACK OFFICE) (03/10/2024) HGB A1C 5.9 % GEOVANNI BATISTA (9448), NAOMI 03/10/2024 Shazia Win Bianca RM-Sue LABORATORY Final Resu lt GEOVANNI BATISTA (9469), NAOMI [address] [facility] [place] [address] [place] [address], [place] [phone] * BONE DENSITY/DEXA (12/16/2022 10:16 AM CDT) [...] * HEPATITIS C ANTIBODY (08/11/2018 10:58 AM CARPET FINISHING SUPERVISOR) HEPATITIS C AB <0.1 0.0 - 0.9 s/co ratio [facility] 1 Comment: Negative: < 0.8 Indeterminate: 0.8 - 0.9 Positive: > 0.9 The CDC recommends that a positive HCV antibody result be followed up with a HCV Nucleic Acid Amplification test (240776). 08/11/2018 10:5 8 AM CARPET FINISHING SUPERVISOR 08/11/2018 Narrative [facility] - 08/12/2018 7:36 AM CARPET FINISHING SUPERVISOR Performed at: [facility] [id number] Microbiology Laboratory Manager: Evangelista Trujillo PhD, Phone: [phone] us Shazia Patiño PA-C LABORATORY Final Resu lt [facility] [address] [place] [address] [facility] 1 * COLONOSCOPY/EGD GENERIC (03/05/2015) 03/05/2015 Narrative 03/05/2015 Ordered by an unspecified provider. us Documents Scanned SCANNING Final Result from Last 3 Months or Most Recently Relevant to Health Maintenance Insurance [employer] Advance Directives Documents on File Type Date Recorded Patient Intelligence Analyst Expl anation Advance Directives and Living Will 03/06/2015 12:00 AM ADVANCED DIRECTIVES Advance Directives and Living Will 03/05/2015 12:00 AM ADVANCED DIRECTIVES Advance Directives and Living Will 11/03/2021 10:05 AM POLST Care Teams Internet Manager Relationship Specialty Start Date End Date Shazia Patiño PA-C 9401 [facility] [place] [address] [place] [address] PCP - General PHYSICIAN SECURITY SUPPORT ANALYST 02/25/23 Jose Alejandro Hartmann MD 3 [facility] [place] [address] [place] [address] Consulting Physician GASTROENTEROLOGY 07/10/18 Russ John DPM 3 [facility] [place] [address] [place] [address] Referring Physician PODIATRY/SURGERY 05/25/20 Lucio Joe MD [address] [place] [address] CARDIOVASCULAR DISEASE 10/03/20 Shazia Patiño PA-C [address] [place] [address], 1st floor [place], [place] [id number] Physician Medical Laboratory Scientist PHYSICIAN SECURITY SUPPORT ANALYST 02/25/23 Dr. Ahumada DERMATOLOGY 07/10/18 Dr. Cruz CHIROPRACTIC 07/10/18 Violette Chandler Subpoena Server 02/14/22
--- OUTSIDE RECORDS SUMMARY | 2024-11-25 14:09 | XMS_ITS | Clinical Summary ---
Author Organization [facility] Address [address] [place] [address] Care Team Providers Care Application Penetration Tester Name Role Phone Unavailable Primary Care Provider Unavailabl e Source Comments [facility],non-owned Affiliates and Associated Physician Practices is amultiple site organization consisting of ambulatory clinics and hospital sitesin [place], [place], [place] and [place]. This disclosure is being madepursuant to the Care Everywhere program and may not contain all information available regarding this patient. Last updated 18.[facility] Allergies No known active allergies Medications * [...] to complete this topic Insurance MEDICARE [facility]
[2024-11-25 16:36] LABS: Glucose Point of Care 121 mg/dl (65-105)
[2024-11-25] MEDS: AZITHROMYCIN 500 MG/NS 250 ML 500 MG/250 ML BAG 250 MG IVPB (18:04)
[2024-11-25 22:03] LABS: Glucose Point of Care 102 mg/dl (65-105)
[2024-11-25] MEDS: diphenhydrAMINE HCl CAP 25 MG CAPSULE PO (23:31)
[2024-11-26] VITALS (7 sets, daily range): BP systolic 115–116; BP diastolic 71–74; PULSE 69–86; RESP 16–18; TEMP 36.5–37.1; O2SAT 95–97
[2024-11-26 05:14] LABS: Basophils Percent Auto 0.6 % (0.2-1.2); Eosinophils Absolute Auto 0.6 K/mm3 (0-0.3); Eosinophils Percent Auto 8.6 % (0-4.4); Hematocrit 37.3 % (37.0-47.0); Hemoglobin 12.1 g/dL (12.0-15.0); Immature Granulocyte Absolute 0.02 K/mm3 (0.00-0.031); Immature Granulocyte Percent A 0.3 % (0-0.5); Lymphocytes Absolute Auto 2.13 K/mm3 (0.9-3.2); Mean Corpuscular HGB Conc 32.4 g/dl (32-36); Mean Corpuscular Hemoglobin 28.7 pg (26-34); Mean Corpuscular Volume 88.4 fl (80-100); Mean Platelet Volume 9.8 fl (7.4-10.4); Monocytes Absolute Auto 0.4 K/mm3 (0.1-0.6); Monocytes Percent Auto 5.1 % (2.6-8.5); Neutrophils Absolute Auto 3.9 K/mm3 (1.3-6.7); Neutrophils Percent Auto 55.4 % (45.5-73.1); Platelet Count Result 204 k/mm3 (150-375); Red Blood Count 4.22 M/mm3 (4.2-5.4); Red Cell Distribution Width 13.7 % (11.5-14.5); White Blood Count 7.1 K/mm3 (4.5-10.0)
[2024-11-26 05:38] LABS: Alanine Aminotransferase 23 U/L (6-35); Albumin Level 3.7 g/dL (3.5-5.1); Alkaline Phosphatase 55 U/L (38-126); Anion Gap 8 mmol/L (4-12); Aspartate Amino Transferase 22 U/L (14-36); Bilirubin,Total 0.5 mg/dL (0.2-1.3); Blood Urea Nitrogen 20 mg/dL (7-17); Calcium 8.6 mg/dL (8.4-10.2); Carbon Dioxide 23 mmol/L (22-30); Chloride 107 mmol/L (98-107); Estimated CRCL calculation 46 ml/min; Estimated Glomerular Filt Rate 45; Glucose 104 mg/dL (65-110); Magnesium 1.9 mg/dL (1.6-2.3); Potassium 3.9 mmol/L (3.4-5.0); Sodium 138 mmol/L (137-145)
[2024-11-26] MEDS: LEVOTHYROXINE SODIUM 75 MCG TABLET PO (06:00)
[2024-11-26 07:56] LABS: Glucose Point of Care 102 mg/dl (65-105)
--- NOTE | 2024-11-26 09:32 | P.PNIM_ITS ---
Progress Note: A&P Assessment and Plan (1) Sepsis: Qualifiers: Sepsis type: sepsis due to unspecified organism Sepsis acute organ dysfunction status: without acute organ dysfunction Qualified Code(s): A41.9 - Sepsis, unspecified organism Code(s): A41.9 - Sepsis, unspecified organism Status: Acute Assessment and Plan: resolved s/p IVF likely from Pneumonia and UTI Blood culture negative and MRSA positive Continue Rocephin, Azithromycin on room air (2) Pneumonia: Qualifiers: Laterality: left Lung location: lower lobe of lung Pneumonia type: due to unspecified organism Qualified Code(s): J18.9 - Pneumonia, unspecified organism Code(s): J18.9 - Pneumonia, unspecified organism Status: Acute Assessment and Plan: - CXR: Left basilar airspace disease, compatible with pneumonia. - started on CAP tx: Ceftriaxone and azithromycin on 11/24 - Viral PCR negative continue above care (3) Acute UTI: Code(s): N39.0 - Urinary tract infection, site not specified Status: Suspected Assessment and Plan: - UA showed 3+ leuks, 11-20 WBC, 4+ bacteria. However had many epithelial cells. Contaminant versus infection? - UC pending, follow - no previous micro available for review - started on Ceftriaxone on 11/24 monitor urine culture (4) Sustained SVT: Code(s): I47.10 - Supraventricular tachycardia, unspecified Status: Acute Assessment and Plan: - initial EKG showed SVT with moderate ST depression. Patient was converted to sinus tachycardia with a modified Valsalva maneuver in the ER. Repeat EKG showed sinus tach and resolution of ST depression. Awaiting formal reads of EKGs. 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 - correct regimen ordered - high dose TIDWM, based off BMI - A1C ordered (6) HTN (hypertension): Qualifiers: Hypertension type: primary hypertension Qualified Code(s): I10 - Essential (primary) hypertension Code(s): I10 - Essential (primary) hypertension Status: Chronic Assessment and Plan: titrate home meds with clinical course Plan Diet: Heart healthy DVT Prophylaxis: Lovenox SQ Code Status: Full code Subjective Date/time seen: 11/26/24 09:32 Interval history: Comfortable at bedside Review of Systems Review of Systems: All systems reviewed & are unremarkable except as noted in HPI and below Exam Narrative: crackles left lung base. mildly ill appearing. Const: General: comfortable and no acute distress Other: , female, elderly, mildly ill-appearing HENMT: Face/Nose/Sinus: Normal nares present Mouth: Yes moist mucous membranes Eyes: General: appearance normal, both eyes and all related structures Sclera: sclerae normal Pupils: Equal, round and reactive pupils present EOM: EOMs intact bilaterally Resp: Effort & Inspection: normal respiratory effort Other: Crackles in the left lung base, no other adventitious lung sounds. Cardio: Rate: regular rate Rhythm: regular rhythm Other: S1-S2 present without murmur, rub, ectopy GI: Other: Abdomen soft, nondistended, nontender. Normoactive bowel sounds in all quadrants. Skin: General skin exam: normal color and no rashes or lesions noted Wounds: no wounds Neuro: Cranial nerves: Yes Equal, round and reactive pupils present Speech: normal speech Motor exam (neuro): 5/5 motor strength present throughout Sensory Exam: normal sensation Other: A&O x4 Extrem: General: normal to inspection Psych: Mental Status: mental status grossly normal Affect: normal affect Other: Good insight judgment, pleasant Objective Data Vital Signs Vital Signs: Vital Signs - 24 hr 11/25/24 09:42 11/25/24 12:00 11/25/24 14:00 Temperature 97.9 F Pulse Rate 72 79 85 Respiratory Rate 18 Blood Pressure 108/73 Pulse Oximetry 96 Oxygen Delivery 11/25/24 16:00 11/25/24 20:00 11/25/24 20:00 Temperature Pulse Rate 84 77 Respiratory Rate Blood Pressure Pulse Oximetry Oxygen Delivery Room Air 11/25/24 22:00 11/26/24 00:00 11/26/24 04:00 Temperature 98.0 F Pulse Rate 72 72 69 Respiratory Rate 16 Blood Pressure 122/77 Pulse Oximetry 96 Oxygen Delivery 11/26/24 06:00 Temperature 98.7 F Pulse Rate 71 Respiratory Rate 16 Blood Pressure 115/71 Pulse Oximetry 95 Oxygen Delivery Intake/Output Intake/Output: Intake & Output 11/23/24 11/24/24 11/25/24 11/26/24 23:59 23:59 23:59 23:59 Intake Total 2300 1670 350 Balance 2300 1670 350 Meds/Results Medications: Active Medications Generic Name Dose Route Start Last Admin Trade Name Freq PRN Reason Stop Dose Admin Acetaminophen 650 mg 11/24/24 18:41 11/25/24 09:47 Acetaminophen 325 Mg Tablet PO 650 mg Q6H PRN Administration Mild Pain (1-3) or Fever Atorvastatin Calcium 40 mg 11/25/24 09:00 11/25/24 09:42 Atorvastatin 40 Mg Tablet PO 40 mg DAILY CAIN Administration Benzocaine 1 lozenge 11/24/24 18:41 Benzocaine/Menthol (*Bkc) 18 Ea Lozenge PO PRN PRN Sore Throat Benzonatate 100 mg 11/24/24 18:41 11/25/24 09:42 Benzonatate 100 Mg Capsule PO 100 mg TID PRN Administration Cough Citalopram Hydrobromide 20 mg 11/25/24 09:00 11/25/24 09:42 Citalopram Hydrobromide 20 Mg Tablet PO 20 mg DAILY CAIN Administration Dextrose 12.5 gm 11/24/24 21:51 Dextrose 50% 25 Gm/50 Ml Syringe IV PUSH PRN PRN Hypoglycemia Protocol Enoxaparin Sodium 40 mg 11/25/24 09:00 11/25/24 09:42 Enoxaparin 40 Mg/0.4 Ml Syringe SUB-Q 40 mg DAILY CAIN Administration Glucagon 1 mg 11/24/24 21:51 Glucagon For Inj 1 Mg Vial IM PRN PRN Hypoglycemia Protocol Glucose 15 gm 11/24/24 21:51 Glucose Oral Gel 15 Gm Of Glucse In 37.5 Gm Tube PO PRN PRN Hypoglycemia Protocol Guaifenesin 600 mg 11/24/24 21:00 11/25/24 20:40 Guaifenesin 12 Hr 600 Mg Tabcr PO 600 mg Q12HR CAIN Administration Ceftriaxone Sodium 1 gm in 50 mls @ 100 mls/hr 11/25/24 16:00 11/25/24 18:05 Rocephin 1 Gm/Ns 50 Ml IVPB Infused Q24H CAIN Infusion Azithromycin 500 mg in 250 mls @ 250 mls/hr 11/25/24 18:00 11/25/24 19:04 Zithromax IVPB Infused Q24H CAIN Infusion Dextrose 1,000 mls @ 100 mls/hr 11/24/24 21:51 Dextrose 5% 1,000 Ml IVPB PRN PRN Hypoglycemia Protocol Insulin Aspart 4 - 8 units 11/25/24 08:00 11/26/24 08:18 Insulin Aspart (*Bkc) 100 Units/Ml SUB-Q Not Given TIDWM [facility] Protocol Levothyroxine Sodium 75 mcg 11/25/24 06:30 11/26/24 06:00 Levothyroxine Sodium 75 Mcg Tablet PO 75 mcg DAILY@0630 CAIN Administration Metoprolol Succinate 25 mg 11/25/24 09:00 11/25/24 09:42 Metoprolol Succinate Ext Rel 25 Mg Tabcr PO 25 mg DAILY CAIN Administration Polyethylene Glycol 17 gm 11/24/24 20:45 Polyethylene Glycol 3350 17 Gm Powd.Pack PO DAILY PRN constipation Spironolactone 25 mg 11/25/24 09:00 11/25/24 09:42 Spironolactone 25 Mg Tablet PO 25 mg DAILY CAIN Administration Torsemide 10 mg 11/24/24 20:45 11/25/24 09:41 Torsemide 10 Mg Tablet PO 10 mg DAILY PRN Administration swelling/weight gain Radiology Results: ITS Impressions Chest X-Ray 11/24/24 14:26 Impression: 1: Left basilar airspace disease, compatible with pneumonia. Head CT 11/25/24 14:22 IMPRESSION: No acute intracranial process. Pansinus mucoperiosteal disease. Labs Labs: Laboratory Results - last 24 hr 11/25/24 11/25/24 11/25/24 11:45 16:32 20:36 WBC RBC Hgb Hct MCV MCH MCHC RDW Plt Count MPV Immature Gran % (Auto) Neut % (Auto) Lymph % (Auto) [place] % (Auto) Eos % (Auto) Baso % (Auto) Lymph # (Auto) [place] # (Auto) Eos # (Auto) Baso # (Auto) Abs Immat Gran (auto) Absolute Neuts (auto) Absolute Nucleated RBC Nucleated RBC % Sodium Potassium Chloride Carbon Dioxide Anion Gap BUN Creatinine Estim Creat Clear Calc Estimated GFR Glucose POC Capillary Glucose 104 121 H 102 Calcium Magnesium Total Bilirubin AST ALT Alkaline Phosphatase Total Protein Albumin 11/26/24 11/26/24 04:52 07:52 WBC 7.1 RBC 4.22 Hgb 12.1 Hct 37.3 MCV 88.4 MCH 28.7 MCHC 32.4 RDW 13.7 Plt Count 204 MPV 9.8 Immature Gran % (Auto) 0.3 Neut % (Auto) 55.4 Lymph % (Auto) 30.0 [place] % (Auto) 5.1 Eos % (Auto) 8.6 H Baso % (Auto) 0.6 Lymph # (Auto) 2.13 [place] # (Auto) 0.4 Eos # (Auto) 0.6 H Baso # (Auto) 0.0 Abs Immat Gran (auto) 0.02 Absolute Neuts (auto) 3.9 Absolute Nucleated RBC 0.000 Nucleated RBC % 0.0 Sodium 138 Potassium 3.9 Chloride 107 Carbon Dioxide 23 Anion Gap 8 BUN 20 H Creatinine 1.18 H Estim Creat Clear Calc 46 Estimated GFR 45 L Glucose 104 POC Capillary Glucose 102 Calcium 8.6 Magnesium 1.9 Total Bilirubin 0.5 AST 22 ALT 23 Alkaline Phosphatase 55 Total Protein 6.0 L Albumin 3.7 Quality VTE Prophylaxis VTE prophylaxis: pharmacologic ordered
[2024-11-26] MEDS: METOPROLOL SUCCINATE EXT REL 25 MG TABCR PO (10:17)
[2024-11-26] MEDS: ATORVASTATIN 40 MG TABLET PO (10:18)
[2024-11-26] MEDS: guaiFENesin 12 HR 600 MG TABCR PO (10:18)
[2024-11-26] MEDS: CITALOPRAM HYDROBROMIDE 20 MG TABLET PO (10:18)
[2024-11-26] MEDS: SPIRONOLACTONE 25 MG TABLET PO (10:18)
[2024-11-26] MEDS: ENOXAPARIN 40 MG/0.4 ML SYRINGE SUB-Q (10:18)
[2024-11-26] MEDS: BENZONATATE 100 MG CAPSULE PO (10:18)
[2024-11-26] MEDS: TORSEMIDE 10 MG TABLET PO (10:18)
[2024-11-26 12:33] LABS: Glucose Point of Care 155 mg/dl (65-105)
--- NOTE | 2024-11-26 13:35 | P.CONCA_ITS ---
Assessment and Plan Assessment and plan (1) SVT (supraventricular tachycardia): Code(s): I47.10 - Supraventricular tachycardia, unspecified Status: Acute Plan 1. SVT; in the setting of UTI/pneumonia -no further investigation or evaluation for his PD to be done at this juncture -goran harris was her IV Ativan seemed can be used if she goes into SVT again -consider beta-elaine if recurrent episodes of SVT -otherwise you will sign off, please call us with any questions History of Present Illness History of Present Illness Consult date/time: 11/26/24 13:35 Reason For Visit: SVT, UTI, pneumonia Narrative: 74 y/o F with PMH of CHF, HLD, HTN, sleep apnea, diabetes, hypothyroidism, and depression presents here with generalized weakness and general malaise. She was admitted with pneumonia/UTI. Is found to have an episode of SVT in the ED for which Cardiology is consulted She is doing better now on plan is to discharge her today Denies any prior history of SVT Denies any other history of fast heart rate Denies any history of sudden cardiac in family No more episodes of SVT on telemetry Review of Systems 2 Review of Systems: All systems reviewed & are unremarkable except as noted in HPI and below PMFSH Past Medical History Medical History History of postoperative nausea and vomiting Depression Hypothyroidism DM2 (diabetes mellitus, type 2) Sleep apnea HTN (hypertension) HLD (hyperlipidemia) CHF (congestive heart failure) Surgical History Surgical History History of surgery on lower extremity jeb placed, right lower extremity History of sinus surgery History of hysterectomy Family History Family History Mother Cervical cancer Father Heart failure Other Cancer Social History Social History Smoking status: Former smoker Alcohol intake: current Drinks per week: 1 Substance use: never Substance use type: does not use Do You Feel Safe in your Home?: Yes Lack of Transportation: No Lack of Food: Never True Current Housing: I Have Housing Concerned About Future Housing: No Difficulty Paying Gas/Electric Bills: No Difficulty Paying for Meds: No Currently Unemployed: No Education: High School Diploma/GED Difficulty w/ Childcare or Family Care: No Spiritual care concerns: No Meds Home Medications and Allergies Home Medications ?Medication ?Instructions ?Recorded ?Confirmed ?Type atorvastatin 40 mg tablet 40 mg PO DAILY 11/24/24 11/24/24 History citalopram 20 mg tablet 20 mg PO DAILY 11/24/24 11/24/24 History levothyroxine 75 mcg tablet 75 mcg PO DAILY 11/24/24 11/24/24 History metoprolol succinate 25 mg 25 mg PO DAILY 11/24/24 11/24/24 History tablet,extended release 24 hr polyethylene glycol 3350 17 17 g PO DAILY PRN constipation 11/24/24 11/24/24 History gram/dose oral powder (Miralax) semaglutide 2 mg/dose (8 mg/3 mL) 2 mg subcut WEEKLY 11/24/24 11/24/24 History subcutaneous pen injector (Ozempic) spironolactone 25 mg tablet 25 mg PO DAILY 11/24/24 11/24/24 History torsemide 10 mg tablet 10 mg PO DAILY PRN swelling/weight 11/24/24 11/24/24 History gain Allergies Allergy/AdvReac Type Severity Reaction Status Date / Time metformin Allergy Intermediate Vomiting Verified 11/24/24 18:36 Vital Signs Vital Signs - 24 hr 11/25/24 14:00 11/25/24 16:00 11/25/24 20:00 Temperature 36.6 C Pulse Rate 85 84 Respiratory Rate 18 Blood Pressure 108/73 Pulse Oximetry 96 Oxygen Delivery Room Air 11/25/24 20:00 11/25/24 22:00 11/26/24 00:00 Temperature 36.7 C Pulse Rate 77 72 72 Respiratory Rate 16 Blood Pressure 122/77 Pulse Oximetry 96 Oxygen Delivery 11/26/24 04:00 11/26/24 06:00 11/26/24 10:17 Temperature 37.1 C Pulse Rate 69 71 71 Respiratory Rate 16 Blood Pressure 115/71 Pulse Oximetry 95 Oxygen Delivery Exam 2 Narrative: crackles left lung base. mildly ill appearing. Const: General: comfortable and no acute distress Other: , female, elderly, mildly ill-appearing HENMT: Face/Nose/Sinus: Normal nares present Mouth: Yes moist mucous membranes Eyes: General: appearance normal, both eyes and all related structures S clera: sclerae normal Pupils: Equal, round and reactive pupils present E OM: EOMs intact bilaterally Resp: Effort & Inspection: normal respiratory effort Other: Crackles in the left lung base, no other adventitious lung sounds. Cardio: Rate: regular rate Rhythm: regular rhythm Other: S1-S2 present without murmur, rub, ectopy GI: Other: Abdomen soft, nondistended, nontender. Normoactive bowel sounds in all quadrants. Skin: General skin exam: normal color and no rashes or lesions noted W ounds: no wounds Neuro: Cranial nerves: Yes Equal, round and reactive pupils present Speech: normal speech Motor exam (neuro): 5/5 motor strength present throughout S ensory Exam: normal sensation Other: A&O x4 Extrem: General: normal to inspection Psych: Mental Status: mental status grossly normal Affect: normal affect Other: Good insight judgment, pleasant Results Labs and Meds 11/26/24 04:52 11/26/24 04:52 Lab results: Cardiac Enzymes 11/26/24 Range/Units 04:52 AST 22 (14-36) U/L CBC 11/26/24 Range/Units 04:52 WBC 7.1 (4.5-10.0) K/mm3 RBC 4.22 (4.2-5.4) M/mm3 Hgb 12.1 (12.0-15.0) g/dL Hct 37.3 (37.0-47.0) % Plt Count 204 (150-375) k/mm3 Lymph # (Auto) 2.13 (0.9-3.2) K/mm3 [place] # (Auto) 0.4 (0.1-0.6) K/mm3 Eos # (Auto) 0.6 H (0-0.3) K/mm3 Baso # (Auto) 0.0 (0.0-0.1) K/mm3 Comprehensive Metabolic Panel 11/26/24 Range/Units 04:52 Sodium 138 (137-145) mmol/L Potassium 3.9 (3.4-5.0) mmol/L Chloride 107 (98-107) mmol/L Carbon Dioxide 23 (22-30) mmol/L BUN 20 H (7-17) mg/dL Creatinine 1.18 H (0.7-1.0) mg/dL Glucose 104 (65-110) mg/dL Calcium 8.6 (8.4-10.2) mg/dL AST 22 (14-36) U/L ALT 23 (6-35) U/L Alkaline Phosphatase 55 (38-126) U/L Total Protein 6.0 L (6.3-8.2) g/dL Albumin 3.7 (3.5-5.1) g/dL Intake and Output 11/25/24 11/26/24 11/26/24 23:59 07:59 15:59 Intake Total 1090 350 480 Balance 1090 350 480 Intake: IV 300 Azithromycin 500 mg/Ns 250 ml 250 500 mg In 250 ml @ 250 mls/hr IVPB Q24H CAIN Rx#:[id number] cefTRIAXone 1 GM/NS 50 ML 1 gm 50 In 50 ml @ 100 mls/hr IVPB Q24H [facility] Rx#:[id number] Oral 790 350 480 Other: # Unmeasured Voids 4 1 Number of Bowel Movements Today 1
--- NOTE | 2024-11-26 17:50 | PM.DS ---
DS: Admitting Diagnosis Discharge Date 11/26/24 Admitting Diagnosis Weakness, General Malaise DS: Discharge Diagnosis Discharge Diagnosis (1) Pneumonia: Qualifiers: Laterality: left Lung location: lower lobe of lung Pneumonia type: due to unspecified organism Qualified Code(s): J18.9 - Pneumonia, unspecified organism Code(s): J18.9 - Pneumonia, unspecified organism Status: Acute (2) Sepsis: Qualifiers: Sepsis type: sepsis due to unspecified organism Sepsis acute organ dysfunction status: without acute organ dysfunction Qualified Code(s): A41.9 - Sepsis, unspecified organism Code(s): A41.9 - Sepsis, unspecified organism Status: Acute DS: Summary Hospital Course Hospital Course: 74 y/o F with PMH of CHF, HLD, HTN, sleep apnea, diabetes, hypothyroidism, and depression presents here with generalized weakness and general malaise. The patient presents here from home on 11/24 for further evaluation of general malaise and generalized weakness. She reports that she began to feel unwell on Wednesday, 11/21. Initial VS at presentation: 100.9 ? F, HR 185, R 20, 106/71, and 95% on RA. ED workup showed: WBC 14.3, no anemia, normal coags, creatinine 1.17 and GFR 45 (no previous available for comparison), glucose 131, lactic 1.7, BNP 178, CRP 3.1, and UA equivocal (infection versus contaminant). Viral PCR negative. CXR showed a left basilar airspace disease compatible with pneumonia. Initial EKG showed SVT, rate 184, moderate ST depression. Repeat EKG post modified Valsalva showed sinus tachycardia, rate 113, ST deviation no longer present. Patient was managed with ROcephin and Azithromycin. Symptoms resolved, vitals signs wnl , no SVT episodes. SVT likely from pneumonia. Cardiology was consulted about SVT patient was evaluated and they recommended continuing Metoprolol and no further work up needed. Patient discharged on 5 more days of Cefdinir and 3 more days of Azithromycin. F/u with PCP in 3-5 days Time Spent with Patient Time attestation: Total time spent providing and/or coordinating discharge services: DS: Data Data Completed and Pending Labs on day of discharge: Labs from last 24 hours 11/26/24 11/26/24 11/26/24 12:24 07:52 04:52 WBC 7.1 RBC 4.22 Hgb 12.1 Hct 37.3 MCV 88.4 MCH 28.7 MCHC 32.4 RDW 13.7 Plt Count 204 MPV 9.8 Immature Gran % (Auto) 0.3 Neut % (Auto) 55.4 Lymph % (Auto) 30.0 [place] % (Auto) 5.1 Eos % (Auto) 8.6 H Baso % (Auto) 0.6 Lymph # (Auto) 2.13 [place] # (Auto) 0.4 Eos # (Auto) 0.6 H Baso # (Auto) 0.0 Abs Immat Gran (auto) 0.02 Absolute Neuts (auto) 3.9 Absolute Nucleated RBC 0.000 Nucleated RBC % 0.0 Sodium 138 Potassium 3.9 Chloride 107 Carbon Dioxide 23 Anion Gap 8 BUN 20 H Creatinine 1.18 H Estim Creat Clear Calc 46 Estimated GFR 45 L Glucose 104 POC Capillary Glucose 155 H 102 Calcium 8.6 Magnesium 1.9 Total Bilirubin 0.5 AST 22 ALT 23 Alkaline Phosphatase 55 Total Protein 6.0 L Albumin 3.7 11/25/24 20:36 WBC RBC Hgb Hct MCV MCH MCHC RDW Plt Count MPV Immature Gran % (Auto) Neut % (Auto) Lymph % (Auto) [place] % (Auto) Eos % (Auto) Baso % (Auto) Lymph # (Auto) [place] # (Auto) Eos # (Auto) Baso # (Auto) Abs Immat Gran (auto) Absolute Neuts (auto) Absolute Nucleated RBC Nucleated RBC % Sodium Potassium Chloride Carbon Dioxide Anion Gap BUN Creatinine Estim Creat Clear Calc Estimated GFR Glucose POC Capillary Glucose 102 Calcium Magnesium Total Bilirubin AST ALT Alkaline Phosphatase Total Protein Albumin Preliminary micro results at discharge 11/24/24 13:37 Blood Culture - Preliminary Blood 11/24/24 15:24 Blood Culture - Preliminary Blood Discharge Plan Discharge Attending physician on discharge: Sriram De Jesus Consulting providers: Priya Elder Discharging Clinician: Sriram De Jesus Patient Disposition: Home Activity: as tolerated Diet: as tolerated and heart healthy Patient Instructions: Antibiotic Form Patient Language: Cong[place]ese Stand Alone Forms: General Discharge Information Follow-up/Referrals: Priya Elder MD [Physician] - (F/u with cardiology as instructed ) PHYSICIAN NOT ON STAFF,NONSTAFF [Primary Care Provider] - (F/u in 3-5 days ) Discharge Medications: New cefdinir 300 mg capsule 300 mg PO Q12H 5 Days Qty: 10 0RF azithromycin 250 mg tablet 250 mg PO DAILY 3 Days Qty: 3 0RF Rx Instructions: start on day 2 of therapy Continued atorvastatin 40 mg tablet 40 mg PO DAILY torsemide 10 mg tablet 10 mg PO DAILY PRN (Reason: swelling/weight gain) spironolactone 25 mg tablet 25 mg PO DAILY levothyroxine 75 mcg tablet 75 mcg PO DAILY metoprolol succinate 25 mg tablet extended release 24 hr 25 mg PO DAILY Ozempic 2 mg/dose (8 mg/3 mL) pen injector 2 mg SUBCUT WEEKLY polyethylene glycol 3350 [Miralax] 17 gram/dose powder 17 g PO DAILY PRN (Reason: constipation) citalopram 20 mg tablet 20 mg PO DAILY Date of admission: 11/25/24 09:30 Primary Care Provider: PHYSICIAN NOT ON STAFF,NONSTAFF Admitting Provider: Saad Burk Attending physician on admission: Saad Burk Condition: Serious
== END 2024-11-26 18:05 | disposition home or self-care (01) | DRG 194 ==
LOC: ANHED 13:46 → ANH2MED 17:58
PROVIDERS: Student in an Organized Health Care Education/Training Program; Admitting Provider Internal Medicine; Emergency Provider Emergency Medicine; Visit Provider Internal Medicine
DX: J18.9 Pneumonia, unspecified organism (principal); I47.10 Supraventricular tachycardia, unspecified; N39.0 Urinary tract infection, site not specified; E11.9 Type 2 diabetes mellitus without complications; E78.5 Hyperlipidemia, unspecified; E03.9 Hypothyroidism, unspecified; F32.A Depression, unspecified; G47.30 Sleep apnea, unspecified; I11.0 Hypertensive heart disease with heart failure; I50.9 Heart failure, unspecified; Z87.891 Personal history of nicotine dependence; Z79.85 Long-term (current) use of injectable non-insulin antidiabetic drugs; Z20.822 Contact with and (suspected) exposure to COVID-19
CPT/HCPCS: 36415; 70450; 71046; 80053; 81001; 82948; 83036; 83605; 83735; 83880; 84443; 85025; 85610; 85730; 86140; 87040; 87637; 93005; 96361; 96365; 96368; 96375; 99285; A9270; G0378; J0456; J0696; J1200; J1650; J1885; J7030; J7120

== ENCOUNTER 2025-01-12 19:58 | Emergency (ER) | payer MEDICARE, SELFPAY ==
--- NOTE | 2025-01-12 20:02 | ED_ITS ---
HPI - URI/Sore Throat General Chief Complaint: Upper Respiratory Infection Stated Complaint: CHILLS/WARM Time Seen by Provider: 01/12/25 20:10 Source: patient and RN notes reviewed Mode of arrival: ambulatory Limitations: no limitations History of Present Illness HPI Narrative: 74-year-old female presents with concern of for fever. Reports she started having a fever yesterday, general malaise, achy, headache. She denies cough, runny nose, stuffy nose. Denies dysuria, frequency, urgency. Patient reports she was hospitalized at the beginning of November for pneumonia. She denies having symptoms at that time other than fever and general malaise. She has taken Tylenol. MD elicited complaint: fever Related Data Home Medications ?Medication ?Instructions ?Recorded ?Confirmed ?Last Taken ?Type atorvastatin 40 mg tablet 40 mg PO DAILY 11/24/24 01/12/25 11/23/24 History citalopram 20 mg tablet 20 mg PO DAILY 11/24/24 01/12/25 11/23/24 History levothyroxine 75 mcg tablet 75 mcg PO DAILY 11/24/24 01/12/25 11/23/24 History metoprolol succinate 25 mg 25 mg PO DAILY 11/24/24 01/12/25 11/23/24 History tablet,extended release 24 hr polyethylene glycol 3350 17 17 g PO DAILY PRN constipation 11/24/24 01/12/25 Unknown History gram/dose oral powder (Miralax) semaglutide 2 mg/dose (8 mg/3 mL) 2 mg subcut WEEKLY 11/24/24 01/12/25 11/19/24 History subcutaneous pen injector (Ozempic) spironolactone 25 mg tablet 25 mg PO DAILY 11/24/24 01/12/25 11/23/24 History torsemide 10 mg tablet 10 mg PO DAILY PRN swelling/weight 11/24/24 01/12/25 Unknown History gain Allergies Allergy/AdvReac Type Severity Reaction Status Date / Time metformin Allergy Intermediate Vomiting Verified 01/12/25 20:01 Review of Systems Review of Systems: CONSTITUTIONAL: Reports malaise, chills, sweats, fever. EYES: Denies visual changes, redness, or discharge. ENT: Denies rhinorrhea, congestion, sinus pain, otalgia and sore throat. CARDIOVASCULAR: Denies chest pain, palpitations, or edema. RESPIRATORY: Denies cough. Denies dyspnea. GASTROINTESTINAL: Denies abdominal pain, nausea, vomiting, diarrhea : Denies dysuria, frequency, urgency SKIN: Denies rash or itching. MUSCULOSKELETAL: Reports myalgia. NEUROLOGIC: Reports headache. All systems reviewed & are unremarkable except as noted in HPI and below [facility] Past Medical History Medical History History of postoperative nausea and vomiting Depression Hypothyroidism DM2 (diabetes mellitus, type 2) Sleep apnea HTN (hypertension) HLD (hyperlipidemia) CHF (congestive heart failure) Surgical History Surgical History History of surgery on lower extremity jeb placed, right lower extremity History of sinus surgery History of hysterectomy Family History Family History Mother Cervical cancer Father Heart failure Other Cancer Social History Social History Smoking status: Former smoker Alcohol intake: current Drinks per week: 1 Substance use: never Substance use type: does not use Do You Feel Safe in your Home?: Yes Lack of Transportation: No Lack of Food: Never True Current Housing: I Have Housing Concerned About Future Housing: No Difficulty Paying Gas/Electric Bills: No Difficulty Paying for Meds: No Currently Unemployed: No Education: High School Diploma/GED Difficulty w/ Childcare or Family Care: No Spiritual care concerns: No Comments At time of signature, agree with nursing past medical, surgical, social and fam trav history. There is no relevant family history pertinent to the presenting complaint Exam Narrative: GENERAL: Nontoxic-appearing and in no acute distress. HEAD: Normocephalic EYES: PERRLA, conjunctivae clear ENT: Nares clear. Mucous membranes moist. TM pearly joaquin with dull light reflex bilaterally; no tragal tenderness. Oropharynx not erythematous without lesions. Tonsils not enlarged and without exudate, no drooling, no hoarseness, no trismus, uvula midline. NECK: Supple. No lymphadenopathy CHEST: Scattered crackles, otherwise Clear to auscultation, breath sounds equal. No wheezing, rhonchi, rales, or stridor. No respiratory distress, speaks in full sentences. HEART: Regular rate and rhythm. No murmur heard. SKIN: Warm, dry, no rash. NEURO: Alert and oriented x3. PSYCH: Normal mood and affect Course Course Emergency Course: I discussed with the patient my advice to transfer to the emergency room based on her illness in November and her current fever of unknown origin. Patient's husb and states he does not want to sit in the ER all night. I advised risks of treating with oral antibiotics without full workup. They voiced understanding and would like to be treated with oral antibiotics. I will cover the patient for possible lower respiratory tract infection although her UA is unremarkable for potential urinary tract infection given her illness may. Anticipatory guidance given. Patient agrees to follow-up as directed and is aware of reasons to seek care at the emergency department. Portions of this record may have been created with voice recognition software Level of Care: Express Care Visit Vital Signs Vital signs: Reviewed. MDM - URI/Sore Throat MDM Narrative Medical decision making narrative: I evaluated this patient in the [facility] care. History is obtained from patient who is an independent historian and physical exam was performed.? Available medical records were reviewed. ? Patient is non-toxic appearing and is in no distress. ? Differential diagnosis and treatment plan were discussed with the patient. Differential Diagnosis Differential diagnosis: Likely upper respiratory infection and other (Pneumonia, UTI) Lab Data Attestation: I reviewed the patient's lab results. Critical Care Time Critical Care Time Critical Care Time: No Discharge Plan Discharge Clinical Impression: Fever Patient Disposition: Home Condition: Stable Instructions: Antibiotic Form, Fever in Adults (ED) Additional Instructions: It is my advice that he seek further evaluation in the emergency room. Based on the illness you had in November I cannot do a full workup in the Urgent Care to assure that you do not need hospitalization. Because you do not want to go to the emergency room, I will prescribe an antibiotic to treat possible pneumonia/UTI. Please take the antibiotic right away. If her symptoms worsen in any way you do not improve the next 24 hours I strongly advised to go to the emergency room. You can continue to take Tylenol as needed for fever. Patient Language: Slovak Prescriptions: New doxycycline monohydrate 100 mg tablet 100 mg PO BID 7 Days Qty: 14 0RF amoxicillin-pot clavulanate 875-125 mg tablet 1 tablet PO Q12H 10 Days Qty: 20 0RF No Action atorvastatin 40 mg tablet 40 mg PO DAILY torsemide 10 mg tablet 10 mg PO DAILY PRN (Reason: swelling/weight gain) spironolactone 25 mg tablet 25 mg PO DAILY levothyroxine 75 mcg tablet 75 mcg PO DAILY metoprolol succinate 25 mg tablet extended release 24 hr 25 mg PO DAILY Ozempic 2 mg/dose (8 mg/3 mL) pen injector 2 mg SUBCUT WEEKLY polyethylene glycol 3350 [Miralax] 17 gram/dose powder 17 g PO DAILY PRN (Reason: constipation) citalopram 20 mg tablet 20 mg PO DAILY Follow-up/Referrals: Bianca,JAG Camacho [Primary Care Provider] - Time of Disposition: 20:21
[2025-01-12 20:06] VITALS: BP 112/74; PULSE 111; RESP 16; TEMP 38.3; O2SAT 96
== END 2025-01-12 20:23 | disposition home or self-care (01) ==
PROVIDERS: Emergency Provider Nurse Practitioner; PCP Physician Assistant
DX: E03.9 Hypothyroidism, unspecified (principal); E11.9 Type 2 diabetes mellitus without complications; E78.5 Hyperlipidemia, unspecified; I11.0 Hypertensive heart disease with heart failure; I50.9 Heart failure, unspecified; Z79.899 Other long term (current) drug therapy
CPT/HCPCS: 99213; G0463

== ENCOUNTER 2025-02-27 19:28 | Emergency (ER) | payer MEDICARE, SELFPAY ==
--- NOTE | ~2025-02-27 | XR_ITS ---
HISTORY: fell into shopping cart, left rib pain COMPARISON: None TECHNIQUE: 3 views of the left ribs were performed along with a PA and lateral view of the chest FINDINGS: Cardiomediastinal silhouette is unremarkable. Elevation of the right hemidiaphragm with adjacent compressive atelectasis. The remainder the lungs are clear. No acute displaced left rib fracture is appreciated. Bone mineralization is age-appropriate. IMPRESSION: No acute displaced left rib fracture is appreciated. The lungs are clear. If clinical suspicion persists, cross-sectional imaging (noncontrast enhanced CT examination of the c hest) is suggested for further evaluation. Reviewed, dictated and finalized at location A. IMPRESSION: No acute displaced left rib fracture is appreciated. The lungs are clear. If clinical suspicion persists, cross-sectional imaging (noncontrast enhanced C T examination of the chest) is suggested for further evaluation.
--- NOTE | ~2025-02-27 | XR_ITS ---
HISTORY: fall COMPARISON: None TECHNIQUE: 4 views of the right knee were performed FINDINGS: No acute or subacute fracture. Medial and lateral tibiofemoral joint space narrowing with sclerosis and osteophytic bridging is iden tified. Moderate suprapatellar joint effusion is identified. The infrapatellar joint space is clear. Intramedullary jeb and screw within the proximal tibia. Ossification of the insertion of the quadriceps tendon is noted. Multiple well-corticated loose bodies adjacent to the cranial margin of the patella. IMPRESSION: Significant degenerative disease with a moderate suprapatellar joint effusion. No acute fracture. Reviewed, dictated and finalized at location A. IMPRESSION: Significant degenerative disease with a moderate suprapatellar janine nt effusion. No acute fracture.
--- OUTSIDE RECORDS SUMMARY | 2025-02-27 19:31 | XMS_ITS | Encounter Summary ---
Author Organization [facility] Address [facility] [place] [address] Care Team Providers Care Operator Cavity Pump Name Role Phone Jose Alejandro Hartmann MD Unavailable Russ John DPM Unavailable [phone] Lucio Joe MD Unavailable [phone] Shazia Valenzuela PA-C Unavailable [phone] Shazia Valenzuela PA-C Primary Care Provider Reason for Visit * Reason Onset Date Comments Results 01/15/2025 Encounter Details Date Type Department Care Team (Late st Contact Info) Description 01/15/2025 Results Follow-Up [facility] [address] [place] [phone] Shazia Valenzuela PA-C [address] [facility] [address] [place] [address] LIPID PANEL, VITAMIN D, 25 OH, VITAMIN B12 / FOLATE, Additional followed-up results: 3 Social History Tobacco Use Types Packs/Day Years [...] Information Value Date Recorded Sex Assigned at Female 02/20/2025 1:55 PM CDT Legal Sex Female 11:38 PM CDT Gender Identity Not on file Sexual Orientation Not on file documented as of this encounter Progress Notes * Jay Manzanares MA - 01/15/2025 1:05 PM CDT Patient notified of lab results and provider's recommendations. Patient verbalized understanding and states she will try the Crestor. JAY MANZANARES MA 01/15/2025 * Jay Manzanares MA - 01/15/2025 1:05 PM CDT ----- Message from Shazia Valenzuela sent at 01/15/2025 12:17 PM CDT ----- Your complete blood count (CBC) was normal. A complete blood count gives information about the 3 main components of the blood: red blood cells, white blood cells, and platelets. ----- Message ----- From: Zhang, [id number] Sent: 01/13/2025 12:07 PM CDT To: Shazia Valenzuela PA-C documented in this encounter Plan of Treatment Upcoming Encounters Date Type Department Care Team (Latest Contact Info) Description 04/06/2025 10:24 AM CDT Hospital Encounter [facility] [address] [place], [place] [phone] Jonathan Stack IV, MD [address] [place] [phone] 04/06/2025 10:24 AM CDT - 04/06/2025 11:11 AM CDT Surgery [facility] [address] [place] [address] Jonathan Stack IV, MD [facility] [address] [place] [address] COLONOSCOPY DIAGNOSTIC WITH/WITHOUT SPECIMEN BRUSH/WASH 05/24/2025 11:00 AM CDT Office Visit [facility] [address] [place] [phone] Shazia Valenzuela PA-C [address] [address] Scheduled Procedures Name Priority Associated Diagnoses Date/Ti me COLONOSCOPY DIAGNOSTIC WITH/WITHOUT SPECIMEN BRUSH/WASH Encounter for screening for malignant neoplasm of colon Anal pain Dysphagia, unspecified type Right upper quadrant abdominal pain 04/06/2025 10:24 AM CDT documented as of this encounter Visit Diagnoses Not on filedocumented in this encounter Additional Health Concerns Assessment Noted Time PHQ-9 Depression Total Score: 1 11/01/19 22 11:11 AM CDT documented as of this encounter Care Teams Operator Cavity Pump Relationship Specialty Start Date End Date Shazia Valenzuela PA-C [address] [place] [address] PCP - General PHYSICIAN RECORDS MANAGER 02/25/23 Jose Alejandro Hartmann MD 3 [facility] [address] [place], [place] [address] Consulting Physician GASTROENTEROLOGY 07/10/18 Russ John DPM 3 [facility] [address] [place], [place] [phone] Referring Physician PODIATRY/SURGERY 05/25/20 Lucio Joe MD [address] [place] [address] CARDIOVASCULAR DISEASE 10/03/20 Shazia Valenzuela PA-C [address] [place] [address], [address] [place] [address] Physician Cloth Finishing Range Tender PHYSICIAN RECORDS MANAGER 02/25/23 Dr. Ahumada DERMATOLOGY 07/10/18 Dr. Cruz CHIROPRACTIC 07/10/18 Violette Chandler Woodworking Machine Setter 02/14/22 documented as of this encounter
--- OUTSIDE RECORDS SUMMARY | 2025-02-27 19:31 | XMS_ITS | Encounter Summary ---
Author Organization [facility] Address [facility] [place] [address] Care Team Providers Care Certified Legal Secretary Specialist Name Role Phone Jose Alejandro Hartmann MD Unavailable Russ John DPKermit Unavailable [phone] Lucio Joe MD Unavailable [phone] Gayla Tellez MD Unavailable [phone] Gayla Tellez MD Primary Care Provider + Shazia Valenzuela PA-C Unavailable [phone] Shazia Valenzuela PA-C Primary Care Provider [phone] Encounter Details Date Type Department Care Team (Late st Contact Info) Description 06/06/[address] [facility] Conversion Shazia Valenzuela PA-C [address] [facility] [address] [place] [address] Social History Tobacco Use Types Packs/Day Years [...] 12:00 AM CST Jun 06, 2018 Talia [place]orth 1950 We have made several attempts to contact you regarding the following: [] Lab Results [x] Mammogram [] ER Visit [] X- RAY [] PAP Results [] OTHER: Please contact the office as soon as possible for the results of these test. Thank you, Shazia RM DEVELOPER documented in this encounter Plan of Treatment Upcoming Encounters Date Type Department Care Team (Latest Contact Info) Description 04/06/2025 10:24 AM CDT Hospital Encounter [facility] [address] [place] [phone] Jonathan Stack IV, MD [address] [place] [phone] 04/06/2025 10:24 AM CDT - 04/06/2025 11:11 AM CDT Surgery [facility] [address] [place] [address] Jonathan Stack IV, MD [address] [place] [phone] COLONOSCOPY DIAGNOSTIC WITH/WITHOUT SPECIMEN BRUSH/WASH 05/24/2025 11:00 AM CDT Office Visit [facility] [address] [place] [phone] Shazia Valenzuela PA-C [address] [facility] [address] [place], [place] [phone] Scheduled Procedures Name Priority Associated Diagnoses Date/Ti [...] documented as of this encounter Care Teams Certified Legal Secretary Specialist Relationship Specialty Start Date End Date Gayla Tellez MD [address] [place] [address] PCP - General FAMILY PRACTICE 07/08/22 02/24/23 Shazia Valenzuela PA-C [address] [address] PCP - General PHYSICIAN POLISHER IMPLANT 02/25/23 Jose Alejandro Hartmann MD 3 [facility] [address] [place] [address] Consulting Physician GASTROENTEROLOGY 07/10/18 Russ John DPM [address] [address] Referring Physician PODIATRY/SURGERY 05/25/20 Lucio Joe MD [address] [place] [address] CARDIOVASCULAR DISEASE 10/03/20 Gayla Tellez MD [address] [place] [address] FAMILY PRACTICE 07/08/22 07/08/22 Shazia Valenzuela PA-C [address] [place], [place] [address], [place] [address] Physician Electric Shipyard Operator PHYSICIAN POLISHER IMPLANT 02/25/23 Dr. Ahumada DERMATOLOGY 07/10/18 Dr. Cruz CHIROPRACTIC 07/10/18 Violette Chandler Conservation Planner 02/14/22 documented as of this encounter
--- OUTSIDE RECORDS SUMMARY | 2025-02-27 19:31 | XMS_ITS | Clinical Summary ---
Author Organization [facility] Address [address] [place] [address] Care Team Providers Care Camera Tuning Engineer Name Role Phone Unavailable Primary Care Provider Unavailabl e Source Comments [facility],non-owned Affiliates and Associated Physician Practices is amultiple site organization consisting of ambulatory clinics and hospital sitesin [place], [place], [place] and [place]. This disclosure is being madepursuant to the Care Everywhere program and may not contain all information available regarding this patient. Last updated 18.[facility] Allergies No known active allergies Medications * [...] 2010 SCREENING FOR DIABETES 05/17/2018 COVID-19 VACCINE (1 - 2023-2 5 season) 2024 DEPRESSION SCREENING 07/26/2024 INFLUENZA VACCINE (#1) 2025 HEPATITIS B VACCINE Aged Out No [...] age to complete this topic Insurance MEDICARE [facility]
--- OUTSIDE RECORDS SUMMARY | 2025-02-27 19:31 | XMS_ITS | Clinical Summary ---
Author Organization [facility] Address [address] [place] [address] Care Team Providers Care Parcel Post Weigher Name Role Phone Gayla Tellez MD Primary Care Provider [phone] Allergies Active Allergy Reactions Criticality Noted Date Comments Bupropion Unknown,Other (See comments) 012 Sore throat Lisinopril Cough Low 10/03/2020 Metformin Stomach upset Low 01/06/2021 Medications levothyroxine (SYNTHROID) 75 mcg tablet 1/2 tab every day 9 Active semaglutide (OZEMPIC SUBQ) Inject under the skin Active atorvastatin (LIPITOR) 40 mg tablet Take 1 tablet (40 mg total) by mouth daily 90 tablet 1 4 Active aspirin 81 mg enteric coated tablet Take 1 tablet (81 mg total) by mouth daily Active citalopram (CeleXA) 20 mg tablet Take 1 tablet (20 mg total) by mouth daily Active cholecalcifero l (VITAMIN D-3) 2000 unit capsule 1 capsule (2,000 Units total) Active spironolactone (ALDACTONE) 25 mg tablet Take 1 tablet (25 mg total) by mouth daily 90 tablet 3 4 Active torsemide (DEMADEX) 10 mg tablet Take 1 tablet (10 mg total) by mouth daily as needed (Symptoms of fluid overload ie) swelling, weight gain of 3lbs in 1 day, or 5lbs over 2-3 days.) 90 tablet 3 4 Active famotidine (PEPCID) 10 mg tablet Take 1 tablet (10 mg total) by mouth nightly Active Ozempic 2 mg/dose (8 mg/3 mL) pen injector injection INJECT 2 MG SUBCUTANEOUSLY ONCE A WEEK 5 Active metoprolol XL (TOPROL-XL) 25 mg extended release tablet Take 1 tablet by mouth once daily 90 tablet 5 Active Hospital, Clinic, or Other Facility Administered Medication Ordered Dose Route Frequency Start Date End Date Status perflutren protein-a (OPTISON) 3 mL in sodium chloride 0.9% 8 mL syringe 1 - 8 mL IV Once in imaging 01/30/2025 01/30/2025 Ended Active Problems Problem Noted Date Diagnosed Date Lumbar radiculopathy 06/29/2022 Intervertebral disc disorder with radiculopathy of lumbosacral region 05/01/2022 (HFpEF) heart failure with preserved ejection fr action 05/01/2022 Diabetes 05/01/2022 Atrial fibrillation 05/01/2022 Overview (05/01/2022): Seen by cardiology after a monitor showed possible PSVT, but the fuel yard operator reviewed and thinks it is more likely [...] Onset: 2009, wears cpap Hiatal hernia 04/30/2010 Encounters Date Type Department Care Team Description 01/30/2025 3:30 PM CDT Office Visit [facility] Cardiology [address] [place] [address] Medical Office Building [address] [place] [address] Lucio Joe MD Chronic heart failure with preserved ejection fraction (HCC) (Primary Dx); Dyspnea on exertion; Essential hypertension; Mixed hyperlipidemia; SVT (supraventricular tachycardia) 01/30/2025 2:00 PM CDT Ancillary Procedure [facility] [address] [place] [address] [address] [place] [address] Chronic heart failure with preserved ejection fraction (HCC) 01/05/2025 Telephone [facility] Cardiology [address] [place] [address] [facility] 8th [place] [address] [place] [address] Lucio Joe MD 12/27/2024 1:15 PM CDT Office Visit [facility] Orthopaedic Surgery [address] [place] [address] [facility] 12th [place] [address] [place] [address] Lawrence Albright MD Right shoulder pain, unspecified chronicity (Primary Dx); Tear of right rotator cuff, unspecified tear extent, unspecified whether traumatic 12/27/2024 1:00 PM CDT - 12/27/2024 11:59 PM CDT Hospital Encounter [facility] [address] [place] [id number] Lawrence Albright MD Right shoulder pain, unspecified chronicity Discharge Disposition: Discharge to home or self care 12/13/2024 12:27 PM CDT - 12/13/2024 11:59 PM CDT Hospital Encounter [facility] [address] [place] [address] Maira Villarreal MD Lumbar radiculopathy Discharge Disposition: Discharge to home or self care 12/11/2024 Telephone [facility] [address] [place] [address] [facility] [address] [place] [address] Maira Villarreal MD [facility] Preprocedure 11/29/2024 2:11 PM CDT - 11/29/2024 11:59 PM CDT Hospital Encounter [facility] [address] [facility] [address] [place] [address] Louis Carpenter NP Lumbar radiculopathy (Primary Dx); Spinal stenosis of lumbar region, unspecified whether neurogenic claudication present Discharge Disposition: Discharge to home or self care from Last 3 Months Immunizations Immunization Administration [...] Diabetes mellitus (HCC) Type 2 diabetes mellitus CHF (congestive heart failure) (HCC) Low back pain Family History Medical History Relation Name Comments Hypertension Father Cancer Mother Cancer Sister Relation Name Status Comments Father Mother Sister Social History Tobacco Use Types Packs/Day Years Used Date Smoking Tobacco: Former Tobacco Cessation:Counseling Given: Not Answered AUDIT-C Answer Date Recorded Q1: How often do you have a drink containing alc ohol? Monthly or less 12/13/2024 Q2: How many drinks containi ng alcohol do you have on a typical day when you are drinking? 1 or 2 12/13/2024 Q3: How often do you have si x or more drinks on one occasion? Never 12/13/2024 Hunger Vital Sign Answer Date Recorded Within the past 12 months, y ou worried that your food would run out before you got the money to buy more. Never true 12/14/19 25 Within the past 12 months, t he food you bought just didn't last and you didn't have money to get more. 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 Gender Identity Not on file Sexual Orientation Not on file Obstetrics History Last Filed Vital Signs Vital Sign Reading Time Taken Comments Blood Pressure 117/80 01/30/2025 3:12 PM CDT Pulse 78 01/30/2025 3:12 PM CDT Temperature 36.4 C (97.5 F) 12/13/2024 12:50 PM CDT Respiratory Rate 18 12/13/2024 2:22 PM CDT Oxygen Saturation 94% 01/30/2025 3:12 PM CDT Inhaled Oxygen Concentration - - Weight 108.4 kg (239 lb) 01/30/2025 3:12 PM CDT Height 167.6 cm (5' 6) 01/30/2025 3:12 PM CDT Body Mass Index 38.58 01/30/2025 3:12 PM CDT Plan of Treatment Health Maintenance Due Date Last Done Comments Albumin Creatinine Ratio, Urine 1950 Colon Cancer Screening-Colonoscopy 1950 Depression Screening 1950 Fall Risk Assessment 1950 Hemoglobin A1C 1950 Hepatitis C Screening 1950 eGFR 1950 Dilated Eye Exam 1950 Foot Exam 1950 Hepatitis B Screening 1968 Well Visit 65+ 2015 Covid-19 Vaccine ( - 2023-2 5 season) 2024 07/08/2021, 11/01/2020, 10/04/2020 Osteoporosis Screening-Bone Density Scan 12/16/2024 12/16/2022 Influenza Vaccine (#1) 2025 , 05/23/2019, 05/16/2018, Additional history exists Breast Cancer Screening-Mammogram 05/23/2025 05/23/2024, 05/23/2024, 08/30/2019, Additional history exists Lipid Panel 01/13/2026 01/13/2025, 02/23, 03/10/2023, Additional history exists DTaP/Tdap/Td Vaccine (2 - Td or Tdap) 01/06/2031 01/06/2021 Pneumococcal vaccine 65+ Completed 020, 05/23/2019, 05/13/2018 Zoster Vaccine Completed 12/23/2022, 10/17/2022 Goals Goal Patient Goal Type Associated Problems Recent Progress Patient-Stated? Author CCM Chronic Pain Care Plan Chronic Care Management Worsening( 12:54 PM CDT) Funmilayo Borja, RN Note: Problem: Chronic Pain Goals: 1. Minimize further functional decline 2. Maximize quality of life 3. Control pain Strategies: - Activity/exercise program recommendation - Conservative stepwise pain medicine strategy with multi-disciplinary approach - Recommend healthy lifestyle strategies and compensatory methods as needed Procedures Procedure Name Priority Date/Time Associated Diagnosis Comments TRANSTHORACIC ECHO (TTE) COMPLETE W DOPPLER/CF W CONTRAST Routine 01/30/2025 2:53 PM CDT Chronic heart failure with preserved ejection fraction (HCC) XR CLAVICLE RIGHT COMPLETE Schedule Routine, Read Routine (OP Routine) 12/27/2024 1:24 PM CDT Right shoulder pain, unspecified chronicity XR SHOULDER RIGHT 2 OR MORE VIEWS Schedule Routine, Read Routine (OP Routine) 12/27/2024 1:24 PM CDT Right shoulder pain, unspecified chronicity PAIN MGMT IMAGING LUMBAR/CAUDAL EPIDURAL STEROID INJ Schedule Routine, Read Routine (OP Routine) 12/13/2024 2:24 PM CDT Lumbar radiculopathy from Last 3 Months Results * TRANSTHORACIC ECHO (TTE) COMPLETE W DOPPLER/CF W CONTRAST (01/30/2025 2:53 PM CDT) Estimated EF 65 % CONS SCIMAGE Anatomical Region Laterality Modality Ultrasound 01/30/2025 2:03 PM CDT Narrative 01/30/2025 3:39 PM CDT [facility] [address], [address] [place] [address] Transthoracic Echocardiographic Report Patient Name: TALIA COX A : 1950 (74y 5m) Gender: F Study Date: 01/30/2025 02:03:22 PM Ht(Inch): 66 Wt(Lb): 238.1 BSA: 2.24 Inspector Rubber Stamp Die: Lonnie Erickson RDCS Location: [facility] Order Provider: LUCIO JOE BMI: 38.43 BP: 119 / 75 Ref Provider: LUCIO JOE - PROCEDURES: Echocardiographic Report: Transthoracic complete echo with contrast, 2D, spectral and tissue Doppler, color flow Doppler, M-mode. Contrast: Contrast Enhancement was Employed: After initial imaging due to sub- optimal quality related to co-morbidity defined by patient's body habitus, due to suboptimal image quality with inadequate visualization of at least 2 of 16 LV wall segments in any view after initial imaging. Perflutren contrast was administered using the volume necessary to obtain adequate images and. 0.8 ml Optison Administered, (2.2 ml wasted). Technically difficult study due to: Body habitus. INDICATIONS: I50.32 Chronic diastolic (congestive) heart failure. CONCLUSIONS: 1. Normal left ventricular size based on volume index. Concentric LV remodeling. The Ejection Fraction is visually estimated to be 65 %. Normal diastolic function. 2. The right ventricle is not well visualized due to poor acoustic windows. Right ventricular dilatation. Mild right ventricular hypokinesis. 3. Technically difficult study. ATTESTATION: I have personally reviewed and interpreted this study without fellow or resident. - DISCLAIMER: The study images and the final report will be retained in the patient chart by the Echo Laboratory for the legally required time period. This chart constitutes the legal record of any testing performed. FINDINGS: Study Quality: Adequate. Left Ventricle: Normal left ventricular size based on volume index. Concentric LV remodeling. The Ejection Fraction is visually estimated to be 65 %. Normal diastolic function. Unable to assess global longitudinal strain due to image quality. Right Ventricle: The right ventricle is not well visualized due to poor acoustic windows. Right ventricular dilatation. Mild right ventricular hypokinesis. Left Atrium: The left atrium is not well visualized due to poor acoustic windows. Right Atrium: The right atrium is not well visualized due to poor acoustic windows. Mitral Valve: Normal mitral valve structure. No mitral regurgitation. Aortic Valve: Normal trileaflet aortic valve. No aortic regurgitation. No aortic valve stenosis. Tricuspid Valve: Normal tricuspid valve structure. No tricuspid regurgitation. Pulmonic Valve: Normal pulmonic valve structure. No pulmonic regurgitation. Pericardium: Normal pericardium without pericardial effusion. Aorta: Normal aortic root size at sinuses of Valsalva. Normal aortic root size when indexed. The ascending aorta is normal in size when indexed. IVC: IVC not visualized due to poor acoustic windows. MEASUREMENTS: 2D/MM Value Range Doppler Value Range LVIDd 2D 3.36 cm [ 3.80 - 5.20 ] AV Peak Shaan 1.2 m/s [ 1.0 - 1.7 ] LVIDs 2D 2.05 cm [ 2.20 - 3.50 ] AV Peak PG 5.76 mmHg IVSd 2D 1.01 cm [ 0.60 - 0.90 ] AV Mean PG 3 mmHg LVPWd 2D 0.94 cm [ 0.60 - 0.90 ] AV VTI 23.7 cm LV Thickness Ratio 1.1 LVOT Peak Shaan 0.9 m/s [ 0.7 - 1.1 ] LV FS 2D 39.03 % [ 27.00 - 45.00 ] LVOT Peak PG 3.24 mmHg LV Mass 2D 94.82 g LVOT Mean PG 2 mmHg LV Mass Index 2D 42.33 g/m2 LVOT VTI 17.0 cm RWT 0.56 LVOT Diam 2.01 cm Visually Estimated EF 65 % RUBEN VTI 2.27 cm2 AoR Diam 2D 3.21 cm [ 2.70 - 3.70 ] LVOT/AV VTI 0.72 - Dimensionless index (DVI) Ao Root Index 1.43 cm/m2 [ 1.00 - 2.00 ] MV E Peak Shaan 0.8 m/s [ 0.6 - 1.3 ] Asc Ao Diam 2D 3.48 cm MV A Peak Shaan 0.8 m/s [ 1.0 - 1.2 ] Asc Ao Index 1.55 cm/m2 MV E/A 1.0 ratio [ 0.8 - 1.5 ] MV Decel Time 177.15 msec [ 104.00 - 258.00 ] Med E` Shaan 7.2 cm/sec [ 8.0 - 25.0 ] Lat E` Shaan 6.5 cm/sec [ 10.0 - 25.0 ] Average E/E` 11.68 TR Peak Shaan 2.4 m/s [ 1.0 - 2.8 ] TR Peak PG 23.0 mmHg PV Peak Shaan 0.9 m/s [ 0.4 - 0.8 ] PV Peak PG 3.24 mmHg Electronically Signed By: Lucio Joe MD 01/30/2025 3:38:41 PM CDT Procedure Note Lucio Joe MD - 01/30/2025 [facility] Cardiac Diagnostic Lab [address] , [address] [place] [address] Transthoracic Echocardiographic Report Patient Name: TALIA COX A : 1950 (74y 5m) Gender: F Study Date: 01/30/2025 02:03:22 PM Ht(Inch): 66 Wt(Lb): 238.1 BSA: 2.24 Inspector Rubber Stamp Die: Lonnie Erickson RDCS Location: [facility] Order Provider:LUCIO JOE BMI: 38.43 BP: 119 / 75 Ref Provider: LUCIO JOE - PROCEDURES: Echocardiographic Report: Transthoracic complete echo with contrast, 2D,spectral and tissue Doppler, color flow Doppler, M-mode. Contrast: Contrast Enhancement was Employed: After initial imaging due tosub- optimal quality related to co-morbidity defined by patient's body habitus, due tosuboptimal image quality with inadequate visualization of at least 2 of 16 LV wallsegments in any view after initial imaging. Perflutren contrast was administered using thevolume necessary to obtain adequate images and. 0.8 ml Optison Administered, (2.2ml wasted). Technically difficult study due to: Body habitus. INDICATIONS: I50.32 Chronic diastolic (congestive) heart failure. CONCLUSIONS: 1. Normal left ventricular size based on volume index. Concentric LVremodeling. The Ejection Fraction is visually estimated to be 65 %. Normal diastolicfunction. 2. The right ventricle is not well visualized due to poor acousticwindows. Right ventricular dilatation. Mild right ventricular hypokinesis. 3. Technically difficult study. ATTESTATION: I have personally reviewed and interpreted this study without fellow orresident. - DISCLAIMER: The study images and the final report will be retained in the patientchart by the Echo Laboratory for the legally required time period. This chart constitutesthe legal record of any testing performed. FINDINGS: Study Quality: Adequate. Left Ventricle: Normal left ventricular size based on volume index.Concentric LV remodeling. The Ejection Fraction is visually estimated to be 65 %. Normaldiastolic function. Unable to assess global longitudinal strain due to imagequality. Right Ventricle: The right ventricle is not well visualized due to pooracoustic windows. Right ventricular dilatation. Mild right ventricular hypokinesis. Left Atrium: The left atrium is not well visualized due to poor acousticwindows. Right Atrium: The right atrium is not well visualized due to poor acousticwindows. Mitral Valve: Normal mitral valve structure. No mitral regurgitation. Aortic Valve: Normal trileaflet aortic valve. No aortic regurgitation. Noaortic valve stenosis. Tricuspid Valve: Normal tricuspid valve structure. No tricuspidregurgitation. Pulmonic Valve: Normal pulmonic valve structure. No pulmonicregurgitation. Pericardium: Normal pericardium without pericardial effusion. Aorta: Normal aortic root size at sinuses of Valsalva. Normal aortic rootsize when indexed. The ascending aorta is normal in size when indexed. IVC: IVC not visualized due to poor acoustic windows. MEASUREMENTS: 2D/MM Value Range DopplerValue Range LVIDd 2D 3.36 cm [ 3.80 - 5.20 ] AV Peak Vel1.2 m/s [ 1.0 - 1.7 ] LVIDs 2D 2.05 cm [ 2.20 - 3.50 ] AV Peak PG5.76 mmHg IVSd 2D 1.01 cm [ 0.60 - 0.90 ] AV Mean PG3 mmHg LVPWd 2D 0.94 cm [ 0.60 - 0.90 ] AV VTI23.7 cm LV Thickness Ratio 1.1 LVOT Peak Vel0.9 m/s [ 0.7 - 1.1 ] LV FS 2D 39.03 % [ 27.00 - 45.00 ] LVOT Peak PG3.24 mmHg LV Mass 2D 94.82 g LVOT Mean PG2 mmHg LV Mass Index 2D 42.33 g/m2 LVOT VTI17.0 cm RWT 0.56 LVOT Diam2.01 cm Visually Estimated EF 65 % RUBEN VTI2.27 cm2 AoR Diam 2D 3.21 cm [ 2.70 - 3.70 ] LVOT/AV VTI0.72 - Dimensionless index (DVI) Ao Root Index 1.43 cm/m2 [ 1.00 - 2.00 ] MV E Peak Vel0.8 m/s [ 0.6 - 1.3 ] Asc Ao Diam 2D 3.48 cm MV A Peak Vel0.8 m/s [ 1.0 - 1.2 ] Asc Ao Index 1.55 cm/m2 MV E/A1.0 ratio [ 0.8 - 1.5 ] MV Decel Time 177.15 msec [ 104.00 - 258.00 ] Med E` Shaan 7.2 cm/sec [ 8.0 - 25.0 ] Lat E` Shaan 6.5 cm/sec [ 10.0 - 25.0 ] Average E/E` 11.68 TR Peak Shaan 2.4 m/s [ 1.0 - 2.8 ] TR Peak PG 23.0 mmHg PV Peak Shaan 0.9 m/s [ 0.4 - 0.8 ] PV Peak PG 3.24 mmHg Electronically Signed By: Lucio Joe MD 01/30/2025 3:38:41 PM CDT us Lucio Joe MD CV ECHO PROCEDURES Final R esult * XR Shoulder Right 2+ View (12/27/2024 1:24 PM CDT) Anatomical Region Laterality Modality Upper Extremities, Shoulder Right Comp uted Radiography 12/27/2024 2:06 PM CDT Impressions 12/27/2024 2:56 PM CDT Mild right shoulder osteoarthritis. No acute fracture of the right shoulder or clavicle. Dictated by: Ham Thurman MD The radiology attending physician has personally reviewed this study, and had reviewed and/or edited this written report and agrees with it. Electronically signed by: Abundio Walker M.D. Narrative 12/27/2024 2:56 PM CDT EXAMINATION: XR SHOULDER RIGHT 2 OR MORE VIEWS, XR CLAVICLE RIGHT COMPLETE HISTORY: Right shoulder pain FINDINGS: 4 radiographs of the right shoulder and 2 radiographs of the right clavicle are submitted. Comparison is made to spine radiographs 05/01/2022. No acute fracture. Glenohumeral and acromioclavicular alignment is normal. There is mild acromioclavicular osteoarthritis. There is mild glenohumeral osteoarthritis. Procedure Note Abundio Walker MD PhD - 12/27/2024 EXAMINATION: XR SHOULDER RIGHT 2 OR MORE VIEWS, XR CLAVICLE RIGHT COMPLETE HISTORY: Right shoulder pain FINDINGS: 4 radiographs of the right shoulder and 2 radiographs of the right clavicle are submitted. Comparison is made to spine radiographs 05/01/2022. No acute fracture. Glenohumeral and acromioclavicular alignment is normal. There is mild acromioclavicular osteoarthritis. There is mild glenohumeral osteoarthritis. IMPRESSION: Mild right shoulder osteoarthritis. No acute fracture of the right shoulder or clavicle. Dictated by: Ham Thurman MD The radiology attending physician has personally reviewed this study, and had reviewed and/or edited this written report and agrees with it. Electronically signed by: Abundio Walker M.D. Lawrence Albright MD IMG XR PROCEDURES Final Re sult * XR Clavicle Right (12/27/2024 1:24 PM CDT) Anatomical Region Laterality Modality Clavicle, Chest Right Computed Radiogr aphy 12/27/2024 2:06 PM CDT Impressions 12/27/2024 2:56 PM CDT Mild right shoulder osteoarthritis. No acute fracture of the right shoulder or clavicle. Dictated by: Ham Thurman MD The radiology attending physician has personally reviewed this study, and had reviewed and/or edited this written report and agrees with it. Electronically signed by: Abundio Walker M.D. Narrative 12/27/2024 2:56 PM CDT EXAMINATION: XR SHOULDER RIGHT 2 OR MORE VIEWS, XR CLAVICLE RIGHT COMPLETE HISTORY: Right shoulder pain FINDINGS: 4 radiographs of the right shoulder and 2 radiographs of the right clavicle are submitted. Comparison is made to spine radiographs 05/01/2022. No acute fracture. Glenohumeral and acromioclavicular alignment is normal. There is mild acromioclavicular osteoarthritis. There is mild glenohumeral osteoarthritis. Procedure Note Abundio Walker MD PhD - 12/27/2024 EXAMINATION: XR SHOULDER RIGHT 2 OR MORE VIEWS, XR CLAVICLE RIGHT COMPLETE HISTORY: Right shoulder pain FINDINGS: 4 radiographs of the right shoulder and 2 radiographs of the right clavicle are submitted. Comparison is made to spine radiographs 05/01/2022. No acute fracture. Glenohumeral and acromioclavicular alignment is normal. There is mild acromioclavicular osteoarthritis. There is mild glenohumeral osteoarthritis. IMPRESSION: Mild right shoulder osteoarthritis. No acute fracture of the right shoulder or clavicle. Dictated by: Ham Thurman MD The radiology attending physician has personally reviewed this study, and had reviewed and/or edited this written report and agrees with it. Electronically signed by: Abundio Walker M.D. us Lawrence Albright MD IMG XR PROCEDURES Final Re sult * Imaging Lumbar/Caudal Epidural Steroid INJ ([id number]) (12/13/2024 2:24 PM CDT) Narrative [facility] - 12/13/2024 2:24 PM CDT The images from this study are not interpreted by Radiology. Please refer to the physician's procedure / OR operative note. us Louis Carpenter DUKEY RIDER IMG PAIN MGMT PROCEDURE S Final Result [facility] from Last 3 Months Insurance [employer] MEDICARE HMO [employer] MEDICARE HMO MEDICARE [facility] Address: [id number] [place] [phone] [facility] MEDICARE O Care Teams Parcel Post Weigher Relationship Specialty Start Date End Date Gayla Tellez MD PCP - General Family Medicine 06/29/22
--- OUTSIDE RECORDS SUMMARY | 2025-02-27 19:31 | XMS_ITS | Clinical Summary ---
Author Organization [facility] Address Formerly [facility] [place] [address] Care Team Providers Care Machinist/Machine Builder Name Role Phone Jose Alejandro Hartmann MD Unavailable Russ John DPKermit Unavailable [phone] Lucio Joe MD Unavailable Shazia Patiño PA-C Unavailable [phone] Shazia Patiño PA-C Primary Care Provider [phone] Allergies Active Allergy Reactions Criticality Noted Date Comments Bupropion Other (see comment) 12/14/2011 Sore throat Lisinopril Cough 10/03/2020 Metformin GI Upset 01/06/2021 Medications CPAP DME DEVICE [id number] ctive Active aspirin 81 MG chewable tablet Chew 1 tablet (81 mg total) by mouth daily. Active levothyroxine (SYNTHROID) 75 MCG tabletIndications :Acquired hypothyroidism Take 1 tablet (75 mcg total) by mouth every morning. 90 tablet 3 03/10/20 24 Active torsemide (DEMADEX) 20 MG tabletIndications :Essential hypertension Take 0.5 tablets (10 mg total) by mouth daily as needed. Take with lower extremity swelling or a 3 pound weight gain in 1 day or 5 lb weight gain over 2-3 days. 30 tablet 03/10/20 24 Active citalopram (CELEXA) 20 MG tabletIndications :Anxiety,Mild episode of recurrent major depressive disorder Take 1 tablet (20 mg total) by mouth daily. 90 tablet 3 06/05/20 24 Active famotidine (PEPCID) 10 MG tablet Take 1 tablet (10 mg total) by mouth every evening. Active atorvastatin (LIPITOR) 40 MG tabletIndications :HLD (hyperlipidemia) TAKE 1 TABLET BY MOUTH NIGHTLY AT BEDTIME 90 tablet 11/24/19 25 Active Additional Information Patient not taking.Reason: Physican Directed, Reported on 02/20/2025 spironolactone (ALDACTONE) 25 MG tabletIndications :Essential hypertension Take 1 tablet (25 mg total) by mouth daily. 90 tablet 3 01/05/20 25 Active metoprolol succinate ER (TOPROL-XL) 25 MG 24 hr tabletIndications :Essential hypertension Take 1 tablet (25 mg total) by mouth daily. 7 tablet 02/08/20 25 Active rosuvastatin (CRESTOR) 20 MG tabletIndications :Mixed hyperlipidemia Take 1 tablet (20 mg total) by mouth nightly at bedtime. 30 tablet 2 02/15/20 25 Active tirzepatide (MOUNJARO) 7.5 MG/0.5ML injectionIndicati ons:Diabetes Mellitus Inject 7.5 mg into the skin once a week. Indications: Diabetes 2 mL 02/15/20 25 Active metoprolol succinate ER (TOPROL-XL) 50 MG 24 hr tabletIndications :Essential hypertension Take 0.5 tablets (25 mg total) by mouth daily. 90 tablet 3 03/10/20 24 025 Disconti nued(The rapy complete d) metoprolol succinate ER (TOPROL-XL) 25 MG 24 hr tablet Take 1 tablet (25 mg total) by mouth daily. 025 Disconti nued(Reo rder) OZEMPIC 2 mg/dose injection (PEN)Indications: Type 2 diabetes mellitus with stage 3a chronic kidney disease, without long-term current use of insulin ([facility]) INJECT 2MG SUBCUTANEOUSLY ONCE A WEEK 3 mL 01/23/20 25 025 Disconti nued(The rapy complete d) spironolactone (ALDACTONE) 25 MG tabletIndications :Essential hypertension Take 1 tablet (25 mg total) by mouth daily. 7 tablet 02/08/20 25 025 Disconti nued(Dup licate Med) Active Problems Problem Noted Date Diagnosed Date Anal pain 02/21/2025 Dysphagia, unspecified type 05/19/2024 Right upper quadrant abdominal pain 05/19/2024 Morbid (severe) obesity due to excess calories 0 03/10/2023 Stage 3b chronic kidney disease 09/03/2021 CHF (congestive heart failure) ([facility]) 06/06/2020 Chondromalacia of patella 05/17/2018 Primary osteoarthritis of both knees 05/17/2018 Lower extremity edema 02/10/2018 Anxiety 03/16/2014 Overview (07/07/2018): Date Onset: 03/16/2014 Depression 12/14/2011 Overview (07/07/2018): declines meds, encouraged counseling Hyperlipidemia 12/14/2011 Hypertension, essential 12/14/2011 Hypothyroidism 12/14/2011 Morbid obesity 12/14/2011 Obstructive sleep apnea 12/14/2011 Overview (07/07/2018): Date Onset: 2009, wears cpap Diabetes ([facility]) SVT (supraventricular tachycardia) ([facility]) Atrial fibrillation ([facility]) Overview (04/11/2020): Seen by cardiology after a monitor showed possible PSVT, but the entertainment usher reviewed and thinks it is more likely atrial fibrillation, but it was only a few second run of this about 5 seconds. He does not recommend any further evaluation or treatment of this unless she has symptoms at the time or if its lasting greater than 6 minutes. (HFpEF) heart failure with p reserved ejection fraction ([facility]) Resolved Problems Problem Noted Date Diagnosed Date Resolved Date Encounter for screening for malignant neoplasm of colon 02/21/2025 02/26/2025 Equinus deformity of both feet 02/10/2018 07/07/2018 Plantar fasciitis 02/10/2018 07/07/2018 Talipes calcaneovalgus 02/10/201807/07 Gastro-esophageal reflux dis ease without esophagitis 12/14/2011 07/07/2018 Hiatal hernia 04/30/2010 07/07/2018 Overview (07/07/2018): Date Onset: 02/25/2012 Encounters Date Type Department Care Team Description 02/21/2025 Prep for Procedure [facility] [address] [facility], [address] [place] [phone] Jonathan Stack IV, MD 02/20/2025 1:50 PM CDT Office Visit [facility] [address] [facility], [address] [place] [address] Jonathan Stack IV, MD Consult For Colonoscopy 02/20/2025 Travel 02/14/2025 11:00 AM CDT Office Visit [address] [address] Shazia Patiño PA-C Follow Up (3 month ) 02/14/2025 Travel 02/07/[address] [phone] Shazia Patiño PA-C Medication Request 01/15/2025 Results Follow-Up [address] [phone] Shazia Patiño PA-C LIPID PANEL, VITAMIN D, 25 OH, VITAMIN B12 / FOLATE, Additional followed-up results: 3 01/13/2025 10:55 AM CDT - 01/13/2025 11:59 PM CDT Hospital Encounter [facility] [address] [place] [address] Shazia Patiño PA-C Discharge Disposition: Home or Self Care (Routine Discharge) 01/13/[address] [address] Shazia Patiño PA-C Orders 01/13/2025 Travel 01/12/2025 Scan HEALTH INFO SRVCS Scanned, [facility] 01/04/2025 1:40 PM CDT Office Visit [address] [place] [phone] Shazia Patiño, [facility] Follow Up (Med review) 01/04/2025 Travel from Last 3 Months Immunizations Immunization Administration Dates Next Due Flucelvax 6 Months+ (Prefill ed Syringe) 05/16/2018,05/13/2017 Fluzone High Dose (IIV, triv alent, 0.5mL) 05/22/2024 Fluzone High Dose - >Age 65 (Prefilled [...] Former Cigarettes 0.1 3 1 968 - 8750 Smokeless Tobacco: Former Tobacco Cessation:Counseling Given: Yes Alcohol Use Standard Drinks/Week Comments No 0 (1 standard drink = 0.6 oz pur e alcohol) AUDIT-C Answer Date Recorded Frequency of Alcohol Consumption Never 06/08/2018 Average Number of Drinks Not on file 018 Frequency of Binge Drinking Not on file 05/26 PHQ-2 Answer Date Recorded Patient Health Questionnaire-2 Score 2 02/20/2025 Comments No Sex and Gender Information Value Date Recorded Sex Assigned at Female 02/20/2025 1:55 PM CDT Legal Sex Female 11:38 PM CDT Gender Identity Not on file Sexual Orientation Not on file Last Filed Vital Signs Vital Sign Reading Time Taken Comments Blood Pressure 112/68 02/20/2025 1:55 PM CDT Pulse 82 02/20/2025 1:55 PM CDT Temperature 36.4 C (97.5 F) 02/14/2025 10:58 AM CDT Respiratory Rate 20 02/20/2025 1:55 PM CDT Oxygen Saturation 95% 02/20/2025 1:55 PM CDT Inhaled Oxygen Concentration - - Weight 111.1 kg (245 lb) 02/20/2025 1:55 PM CDT Height 167.6 cm (5' 6) 11/02/2024 11:19 AM CDT Body Mass Index 39.54 11/02/2024 11:19 AM CDT Plan of Treatment Upcoming Encounters Date Type Department Care Team (Latest Contact Info) Description 04/06/2025 10:24 AM CDT Hospital Encounter [facility] [address] [place] [address] Jonathan Stack IV, MD [address] [place] [address] [place] [address] 04/06/2025 10:24 AM CDT - 04/06/2025 11:11 AM CDT Surgery [facility] [address] [place] [phone] Jonathan Stack IV, MD [address] [facility] [address] [place] [address] COLONOSCOPY DIAGNOSTIC WITH/WITHOUT SPECIMEN BRUSH/WASH 05/24/2025 11:00 AM CDT Office Visit [facility] [address] [place] [address] Shazia Patiño PA-C [address] [place] [address] Scheduled Procedures Name Priority Associated Diagnoses Date/Ti me COLONOSCOPY DIAGNOSTIC WITH/WITHOUT SPECIMEN BRUSH/WASH Encounter for screening for malignant neoplasm of colon Anal pain Dysphagia, unspecified type Right upper quadrant abdominal pain 04/06/2025 10:24 AM CDT Health Maintenance Due Date Last Done Comments RSV Immunization or 60+ Years (1 - Risk 60-74 years 1-dose series) 2010 Annual Medicare Wellness Visit 2015 Diabetes: Retinopathy Eye Exam 02/03/2024 02/02/2022 COVID-19 Vaccine ( season) 2024 07/08/2021, 11/01/2020, 10/04/2020 Colorectal Cancer Screening Colonoscopy (10 Years) 03/06/2025 03/05/2015 Postponed from 03/05/2025 (Awaiting Documentation) Kidney Health Evaluation 03/10/2025 03/10/2024 Hemoglobin A1C 07/15/2025 01/13/2025, 02/23, 02/24/2023, Additional history exists Lipid Panel 01/13/2026 01/13/2025, 02/23, 03/10/2023, Additional history exists Mammogram Screening 05/23/2026 05/23/2024, 08/30/2019, 07/28/2018, Additional history exists DTaP, Tdap and Td Vaccines (2 - Td or Tdap) 01/06/2031 01/06/2021 Hepatitis C Completed 08/11/2018 Dexa Scan (General) Completed 12/16/2022 Zoster Vaccines Completed 12/23/2022, 10/17/2022 Pneumococcal Vaccine: 50+ Years Completed 03/10/2024, 04/11/2020, 05/23/2019, Additional history exists PHQ-2 (Physician [place]) Completed 02/20/2025 Meningococcal B Vaccine Aged Out No l onger eligible based on patient's age to complete this topic Meningococcal Vaccine Aged Out No alxex laya eligible based on patient's age to complete this topic RSV Immunizations Under 20 Months Aged Out No longer eligible based on patient's age to complete this topic Goals Goal Patient Goal Type Associated Problems Recent Progress Patient-Stated? Author Autogenerat ed Goal Care Plan Autogenerated Problem No Grisel Trujillo, RN Medical Devices Implanted Type Area Printed Circuit Board Assembly Repairer Device Identifier Shelf Expiration Date Model / Serial / Lot Levi Levi Right: Leg Procedures Procedure Name Priority Date/Time Associated Diagnosis Comments HEMOGLOBIN, GLYCOSYLATED Routine 01/13/2025 10:57 AM CDT Type 2 diabetes mellitus with stage 3a chronic kidney disease, without long-term current use of insulin ([facility]) CBC W/DIFF AUTOMATED Routine 01/13/2025 10:56 AM CDT Fatigue, unspecified type BASIC METABOLIC PANEL Routine 01/13/2025 10:56 AM CDT Type 2 diabetes mellitus with stage 3a chronic kidney disease, without long-term current use of insulin ([facility]) VITAMIN B12 / FOLATE Routine 01/13/2025 10:56 AM CDT Fatigue, unspecified type VITAMIN D, 25 OH Routine 01/13/2025 10:5 6 AM CDT Fatigue, unspecified type Stage 3b chronic kidney disease (CKD) ([facility]) LIPID PANEL Routine 01/13/2025 10:56 AM CDT HLD (hyperlipidemia) MG SCREENING W SHELL HAYLIE DIGI Routine 05/23/2024 9:17 AM CDT Screening mammogram, encounter for BONE DENSITY/DEXA Routine 12/16/2022 10: 16 AM CDT Post-menopausal DIABETIC RETINOPATHY EXAM (NEGATIVE)(SCAN ORDER) Routine 02/02/2022 HEPATITIS C ANTIBODY 08/11/2018 10:58 AM DELICATESSEN STORE MANAGER COLONOSCOPY/EGD GENERIC (SCAN ORDER) 03/05/2015 from Last 3 Months or Most Recently Relevant to Health Maintenance Results * (ABNORMAL) HEMOGLOBIN, GLYCOSYLATED (01/13/2025 10:57 AM CDT) HGB A1C 5.8(H) <5.7 % 01/14/2025 2:[address] [facility] Comment: ADA GUIDELINES 2010 5.7 TO 6.4% INCREASED RISK OF DIABETES > OR = 6.5% CONSISTENT WITH DIABETES ESTIMATED AVG GLUCOSE 120 mg/dL 01/14/2025 2:[address] [facility] 01/13/2025 10:5 7 AM CDT Shazia Patiño PA-C LABORATORY Final Resu lt Performing Organization Address City/[facility]/ZIP Co de Phone Number [facility] [address] [place] [id number], [place] [phone] * (ABNORMAL) VITAMIN B12 / FOLATE (01/13/2025 10:56 AM CDT) VITAMIN B12 S/P/B 185(L) 193 - 986 PG/ML 01/13/2025 12:26 PM CDT [facility] FOLATE 28.8 8.6 - 58.9 NG/ML 01/13/2025 12:26 PM CDT [facility] 01/13/2025 10:5 6 AM CDT us Shazia Patiño PA-C LABORATORY Final Resu lt [facility] [address] [place] [address], [place] [phone] * (ABNORMAL) BASIC METABOLIC PANEL (01/13/2025 10:56 AM CDT) [facility] GLUCOSE 108(H) 70 - 99 MG/DL 01/13/2025 12:26 PM CDT [facility] BUN 16 7 - 18 MG/DL 01/13/2025 12:26 PM T [facility] CREATININE S/P/B 1.30(H) 0.55 - 1.02 MG/DL 01/13/2025 12:26 PM T [facility] SODIUM S/P/B 137 136 - 145 MMOL/L 01/13/2025 12:26 PM T [facility] POTASSIUM S/P/B 4.0 3.5 - 5.1 MMOL/L 01/13/2025 12:26 PM T [facility] CHLORIDE S/P/B 101 100 - 108 MMOL/L 01/13/2025 12:26 PM T [facility] CO2 24.6 21 - 32 MMOL/L 01/13/2025 12:26 PM T [facility] CALCIUM S/P/B 9.3 8.5 - 10.1 MG/DL 01/13/2025 12:26 PM T [facility] ANION GAP 11.4 5 - 15 MMOL/L 01/13/2025 12:26 PM T [facility] BUN CREATININE RATIO 12.3 6 - 26 01/13/2025 12:26 PM T [facility] GFR ESTIMATE 43(L) >90 ML/MIN/1.7 3 M2 01/13/2025 12:26 PM T [facility] Comment: NOTE: eGFR is not calculated for patients <18 years of age. This is an estimated GFR calculation using the new CKD EPI creatinine equation without race and so does not require a correction factor for race. This estimated GFR should not be used for calculating drug doses. 01/13/2025 10:5 6 AM CDT us Shzaia Patiño PA-C LABORATORY Final Resu lt [facility] [address] [place] [address], * LIPID PANEL (01/13/2025 10:56 AM CDT) CHOLESTEROL 156 <200 MG/DL 01/13/2025 12:26 PM CDT [facility] TRIGLYCERIDES 137 <150 MG/DL 01/13/2025 12:26 PM T [facility] HDL 54 >40.0 MG/DL 01/13/2025 12:26 PM T [facility] LDL (CALCULATED) 75 <100 MG/DL 01/14/20 12:26 PM T [facility] Comment:CALCULATED USING THE FRIEDEWALD EQUATION NON HDL CHOLESTEROL 102 <130 MG/DL 01/13 12:26 PM T [facility] Comment: NOTE: WHEN THE TRIGLYCERIDES ARE >200 mg/dL, NON HDL C IS A SECONDARY TARGET OF THERAPY, WITH A GOAL 30 mg/dL HIGHER THAN THE IDENTIFIED LDL C GOAL. CHOL/HDL RATIO 2.9 0.0 - 4.5 01/13/2025 12:26 PM T [facility] VLDL CALCULATION 27 5 - 55 MG/DL 01/13/2025 12:26 PM T [facility] LIPID INTERPRETATION 01/13/2025 12:26 PM T [facility] Comment: NIH CONCENSUS REPORT RECOMMENDATIONS: ADULT CHILD LOW RISK: CHOLESTEROL <200 <170 TRIGLYCERIDE <150 --- HDL >=60 --- LDL <100 <110 BORDERLINE: CHOLESTEROL 200-239 170-199 TRIGLYCERIDE 150-199 --- HDL 40-59 --- LDL 100-159 110-129 HIGH RISK: CHOLESTEROL >=240 >=200 TRIGLYCERIDE >=200 --- HDL <40 --- LDL >=160 >=130 01/13/2025 10:5 6 AM CDT Shazia Patiño PA-C LABORATORY Final Resu lt [facility] [address] [place] [address], [place] [phone] * CBC W/DIFF AUTOMATED (01/13/2025 10:56 AM CDT) WBC 7.59 4.50 - 11.00 x10'3/uL 01/15/2025 10:16 AM CDT [facility] RBC 4.71 4.20 - 5.40 x10'6/uL 01/15/2025 10:16 AM CDT [facility] HGB 13.8 12.0 - 16.0 G/DL 01/15/2025 10:16 AM CDT [facility] HCT 41.0 38.0 - 48.0 % 01/15/2025 10:16 AM CDT [facility] MCV 87.0 81.0 - 99.0 FL 01/15/2025 10:16 AM CDT [facility] MCH 29.3 27.0 - 31.0 PG 01/15/2025 10:16 AM CDT [facility] MCHC 33.7 32.0 - 36.0 G/DL 01/15/2025 10:16 AM CDT [facility] RDW 14.1 11.5 - 14.5 % 01/15/2025 10:16 AM CDT [facility] PLT 210 130 - 400 x10'3/uL 01/15/2025 10:16 AM CDT [facility] MPV 9.3 9.3 - 12.2 FL 01/15/2025 10:16 AM CDT [facility] SEG NEUTROPHILS 70 % 10:18 AM CDT [facility] LYMPHOCYTES 21 % 01/15/2025 10:18 AM CDT [facility] MONOCYTES 7 % 01/15/2025 10:18 AM CDT [facility] EOSINOPHILS 2 % 01/15/2025 10:18 AM CDT [facility] ABS. NEUTROPHILS TOTAL 5.32 1.80 - 7.70 x10'3/uL 01/15/2025 10:18 AM CDT [facility] ABS. LYMPHOCYTES 1.59 1.00 - 4.80 x10'3/uL 01/15/2025 10:18 AM CDT [facility] ABS. MONOCYTES 0.53 0.24 - 0.86 x10'3/uL 01/15/2025 10:18 AM CDT [facility] ABS. EOSINOPHILS 0.15 0.04 - 0.36 x10'3/uL 01/15/2025 10:18 AM CDT [facility] PLT MORPH. NORMAL 01/15/2025 10:18 AM T [facility] RBC MORPHOLOGY NORMAL 01/15/2025 10:18 AM CDT [facility] 01/13/2025 10:5 6 AM CDT us Shazia Patiño PA-C LABORATORY Final Resu lt [facility] [address] [place] [address], * VITAMIN D, 25 OH (01/13/2025 10:56 AM CDT) VITAMIN D 25 HYDROXY S/P/B 54 30 - 100 NG/ML 01/13/2025 12:07 PM CDT [facility] Comment: INTERPRETATION DEFICIENT <20 INSUFFICIENT 20-29 SUFFICIENT 30-100 01/13/2025 10:5 6 AM CDT Shazia Patiño PA-C LABORATORY Final Resu lt [facility] [address] [place] [address], * MG SCREENING W SHELL HAYLIE DIGI [...] 10:34 AM Narrative 05/23/2024 10:36 AM CDT [address] [address] EXAMINATION: BILATERAL SCREENING MAMMOGRAM CLINICAL INDICATION: 73 [...] Patiño PA-C MAMMO Final Resu lt * BONE DENSITY/DEXA (12/16/2022 10:16 AM CDT) [...] (02/02/2022) us Documents Scanned SCANNING Final Result [facility] * HEPATITIS C ANTIBODY (08/11/2018 10:58 AM DELICATESSEN STORE MANAGER) HEPATITIS C AB <0.1 0.0 - 0.9 s/co ratio [facility] 1 Comment: Negative: < 0.8 Indeterminate: 0.8 - 0.9 Positive: > 0.9 The CDC recommends that a positive HCV antibody result be followed up with a HCV Nucleic Acid Amplification test (375566). 08/11/2018 10:5 8 AM DELICATESSEN STORE MANAGER 08/11/2018 Narrative [facility] - 08/12/2018 7:36 AM DELICATESSEN STORE MANAGER Performed at: [facility] [id number] Insecticide Supervisor: Evangelista Trujillo PhD, Phone: [phone] us Shazia Patiño PA-C LABORATORY Final Resu lt [facility] [address] [place] [address] [facility] * COLONOSCOPY/EGD GENERIC (03/05/2015) 03/05/2015 Narrative 03/05/2015 Ordered by an unspecified provider. us Documents Scanned SCANNING Final Result from Last 3 Months or Most Recently Relevant to Health Maintenance Additional Health Concerns Active Problems Noted Date Diagnosed Date Autogenerated Problem 02/21/2025 Insurance [employer] Advance Directives Documents on File Type Date Recorded Patient Director Inbound Sales Expl anation Advance Directives and Living Will 03/06/2015 12:00 AM ADVANCED DIRECTIVES Advance Directives and Living Will 03/05/2015 12:00 AM ADVANCED DIRECTIVES Advance Directives and Living Will 11/03/2021 10:05 AM POLST Care Teams Machinist/Machine Builder Relationship Specialty Start Date End Date Shazia Patiño PA-C [address] [facility] [address] [place] [address] PCP - General PHYSICIAN CARDIOVASCULAR TECHNICIAN 02/25/23 Jose Alejandro Hartmann MD [address] [facility] [address] [place] [address] Consulting Physician GASTROENTEROLOGY 07/10/18 Russ John DPM [address] [facility] [address] [place] [address] Referring Physician PODIATRY/SURGERY 05/25/20 Lucio Joe MD [address] [place] [address] CARDIOVASCULAR DISEASE 10/03/20 Shazia Patiño, PAShubhamC [address] [place] [address], [address] [place] [address] Physician Master Electrician PHYSICIAN CARDIOVASCULAR TECHNICIAN 02/25/23 Dr. Ahumada DERMATOLOGY 07/10/18 Dr. Cruz CHIROPRACTIC 07/10/18 Violette Chandler Personal Attendant 02/14/22
--- OUTSIDE RECORDS SUMMARY | 2025-02-27 19:31 | XMS_ITS | Encounter Summary ---
Author Organization [facility] Address [facility] [place] [address] Care Team Providers Care Ticket Manager Name Role Phone Jose Alejandro Hartmann MD Unavailable Russ John DPKermit Unavailable [phone] Lucio Joe MD Unavailable [phone] Gayla Tellez MD Unavailable [phone] Gayla Tellez MD Primary Care Provider + Shazia Valenzuela PA-C Unavailable [phone] Shazia Valenzuela PA-C Primary Care Provider + [phone] Encounter Details Date Type Department Care Team (Late st Contact Info) Description 02/14/2018 Abstract [facility] Conversion Shazia Valenzuela PA-C [address] [place] [address] Social History Tobacco Use Types Packs/Day Years [...] 12:00 AM CDT 02-14-2018 , Talia Cox [address] [place] [address] : 1950 Radiology: CAT Scan Chest w/ contrast R91.8 Other nonspecific abnormal finding of lung field Fasting [] Non-Fasting [] Normal [x] Stat [] GER QA documented in this encounter Plan of Treatment Upcoming Encounters Date Type Department Care Team (Latest Contact Info) Description 04/06/2025 10:24 AM CDT Hospital Encounter [facility] [address] [place] [address] Jonathan Stack IV, MD [address] [place] [address] [place] [phone] 04/06/2025 10:24 AM CDT - 04/06/2025 11:11 AM CDT Surgery [facility] [address] [place] [address] Jonathan Stack IV, MD [address] [place] [address] [place] [phone] COLONOSCOPY DIAGNOSTIC WITH/WITHOUT SPECIMEN BRUSH/WASH 05/24/2025 11:00 AM CDT Office Visit [facility] [address] [place] [phone] Shazia Valenzuela PA-C [address] [phone] Scheduled Procedures Name Priority Associated Diagnoses Date/Ti [...] documented as of this encounter Care Teams Ticket Manager Relationship Specialty Start Date End Date Gayla Tellez MD [address] [place] [address] PCP - General FAMILY PRACTICE 07/08/22 02/24/23 Shazia Valenzuela PA-C [address] [address] PCP - General PHYSICIAN TOOL SETTER 02/25/23 Jose Alejandro Hartmann MD [address] [place] [address] Consulting Physician GASTROENTEROLOGY 07/10/18 Russ John DPM [address] [place] [address] Referring Physician PODIATRY/SURGERY 05/25/20 Lucio Joe MD [address] [place] [address] CARDIOVASCULAR DISEASE 10/03/20 Gayla Tellez MD [address] [place] [address] FAMILY PRACTICE 07/08/22 07/08/22 Shazia Valenzuela PA-C [address] [place] [address], [address] [place] [address] Physician Summer School Coordinator PHYSICIAN TOOL SETTER 02/25/23 Dr. Ahumada DERMATOLOGY 07/10/18 Dr. Cruz CHIROPRACTIC 07/10/18 Violette Chandler Account Engineer 02/14/22 documented as of this encounter
--- OUTSIDE RECORDS SUMMARY | 2025-02-27 19:31 | XMS_ITS | Encounter Summary ---
Author Organization [facility] Address [facility] [place] [address] Care Team Providers Care Ceo And Founder Name Role Phone Jose Alejandro Hartmann MD Unavailable Russ John DPM Unavailable [phone] Lucio Joe MD Unavailable [phone] Shazia Valenzuela PA-C Unavailable [phone] Shazia Valenzuela PA-C Primary Care Provider [phone] Encounter Details Date Type Department Care Team (Latest Contact Info) Description 06/06/2024 Vilma Message Enc [facility] Medical Group Multispecialty Care - [address] [id number] Vilma [facility] Provider appointment rescheduled Social History [...] Description 04/06/2025 10:24 AM CDT Hospital Encounter [facility] [address] [place] [address] Jonathan Stack IV, MD [address] [place] [address] [place] [phone] 04/06/2025 10:24 AM CDT - 04/06/2025 11:11 AM CDT Surgery [facility] [address] [place] [address] Jonathan Stack IV, MD [address] [place] [address] [phone] COLONOSCOPY DIAGNOSTIC WITH/WITHOUT SPECIMEN BRUSH/WASH 05/24/2025 11:00 AM CDT Office Visit [facility] [address] [place] [phone] Shazia Valenzuela PA-C 9401 [facility] [address] [place] [address] Scheduled Procedures Name Priority Associated Diagnoses Date/Ti me COLONOSCOPY DIAGNOSTIC WITH/WITHOUT SPECIMEN BRUSH/WASH Encounter for screening for malignant neoplasm of colon Anal pain Dysphagia, unspecified type Right upper quadrant abdominal pain 04/06/2025 10:24 AM CDT documented as of this encounter Visit Diagnoses Not on filedocumented in this encounter Additional Health Concerns Assessment Noted Time PHQ-9 Depression Total Score: 1 11/01/19 11:11 AM CDT documented as of this encounter Care Teams Ceo And Founder Relationship Specialty Start Date End Date Shazia Valenzuela PA-C 9401 [facility] [place] [address] [place], [place] [address] PCP - General PHYSICIAN OCCUPATIONAL THERAPY PROFESSOR 02/25/23 Jose Alejandro Hartmann MD 3 [facility] [place] [address] [place] [address] Consulting Physician GASTROENTEROLOGY 07/10/18 Russ John DPM 3 [facility] [address] [place] [address] Referring Physician PODIATRY/SURGERY 05/25/20 Lucio Joe MD [address] [place] [address] CARDIOVASCULAR DISEASE 10/03/20 Shazia Valenzuela, UMA [address] [place] [address], 1st [place] [address] Physician Supervisor Of Instruction PHYSICIAN OCCUPATIONAL THERAPY PROFESSOR 02/25/23 Dr. Ahumada DERMATOLOGY 07/10/18 Dr. Cruz CHIROPRACTIC 07/10/18 Violette Chandler Prototype Sewer 02/14/22 documented as of this encounter
--- OUTSIDE RECORDS SUMMARY | 2025-02-27 19:31 | XMS_ITS | Encounter Summary ---
Author Organization [facility] Address [facility] [place] [address] Care Team Providers Care Hand Cementer Name Role Phone Jose Alejandro Hartmann MD Unavailable Russ John DPM Unavailable [phone] Lucio Joe MD Unavailable [phone] Gayla Tellez MD Unavailable [phone] Gayla Tellze MD Primary Care Provider + Shazia Valenzuela PA-C Unavailable [phone] Shazia Valenzuela PA-C Primary Care Provider [phone] Encounter Details Date Type Department Care Team (Late st Contact Info) Description 08/31/2017 Abstract [facility] Lucien Lr MD 9401 [facility] 112 [place] [address] Social History Tobacco Use Types [...] AM CST Aug 31, 2017 Talia Cox [address] [place] [address] Dear Talia Cox, Thank you for choosing [facility] for your health care needs. We appreciate the opportunity to help you maintain your well being. You recently had labs drawn. Your results came back stable. Please remember to follow up as discussed at your last appointment and recheck your labs in six months. If you have any questions please feel free to call the office [phone], Option #3 or Option #1 to make an appointment to discuss these results. Respectfully Yours, Electronically Signed by: Lucien Lr MD Cc: Patients Medical Record T METAL INSULATOR * Letter - Lucien Lr MD - 08/31/2017 12:00 AM CST 08-31-2017 , Talia Cox [address] [place] [id number] : 1950 Lab Order TSH with Reflex T4 E03.9 Hypothyroidism, unspecified Lab Order CMP; Lipid profile E78.4 Hyperlipidemia Lab Order Hemoglobin A1C R73.01 Impaired Fasting Glucose Recheck these labs in 6 months (February) Please remember to fast 8-10 hours before labs Normal [x] Stat [] T METAL INSULATOR * Letter - Lucien Lr MD - 08/31/2017 12:00 AM CST 08-31-2017 , Talia Cox [address] [place] [address] : 1950 Lab Order CMP; Lipid Panel E78.4 Other hyperlipidemia Normal [] Stat [] T METAL INSULATOR documented in this encounter Plan of Treatment Upcoming Encounters Date Type Department Care Team (Latest Contact Info) Description 04/06/2025 10:24 AM CDT Hospital Encounter [facility] [address] [place] [address] Jonathan Stack IV, MD [address] [place] [address] [place] [phone] 04/06/2025 10:24 AM CDT - 04/06/2025 11:11 AM CDT Surgery [facility] [address] [place] [address] Jonathan Stack IV, MD [address] [place] [address] [phone] COLONOSCOPY DIAGNOSTIC WITH/WITHOUT SPECIMEN BRUSH/WASH 05/24/2025 11:00 AM CDT Office Visit [facility] [address] [place] [phone] Shazia Valenzuela PA-C 9401 [facility] [address] [place] [address] Scheduled Procedures Name Priority Associated Diagnoses Date/Ti [...] documented as of this encounter Care Teams Hand Cementer Relationship Specialty [place] [address] [place] [address] PCP - General FAMILY PRACTICE 07/08/22 02/24/23 Shazia Valenzuela PA-C 9401 [facility] [place] [address] [place] [address] PCP - General PHYSICIAN MEDICAL EQUIPMENT REPAIR TECHNICIAN 02/25/23 Jose Alejandro Hartmann MD 3 [facility] [address] [place] [address] Consulting Physician GASTROENTEROLOGY 07/10/18 Russ John DPM 3 [facility] [address] [place] [address] Referring Physician PODIATRY/SURGERY 05/25/20 Lucio Joe MD [address]15 [place] [address] CARDIOVASCULAR DISEASE 10/03/20 Gayla Tellez MD [address] [place] [address] FAMILY PRACTICE 07/08/22 07/08/22 Shazia Valenzuela, PA-C [address] [place] [address], [address] [place] [address] Physician Sr. Strategic Sourcing Manager PHYSICIAN MEDICAL EQUIPMENT REPAIR TECHNICIAN 02/25/23 Dr. Ahumada DERMATOLOGY 07/10/18 Dr. Cruz CHIROPRACTIC 07/10/18 Violette Chandler Maternity Nurse 02/14/22 documented as of this encounter
--- OUTSIDE RECORDS SUMMARY | 2025-02-27 19:31 | XMS_ITS | Encounter Summary ---
Author Organization [facility] Address [facility] [place] [address] Care Team Providers Care Harm Reduction Worker Name Role Phone Jose Alejandro Hartmann MD Unavailable Russ John DPKermit Unavailable [phone] Lucio Joe MD Unavailable [phone] Gayla Tellez MD Unavailable [phone] Gayla Tellez MD Primary Care Provider + Shazia Valenzuela PA-C Unavailable [phone] Shazia Valenzuela PA-C Primary Care Provider + [phone] Encounter Details Date Type Department Care Team (Late st Contact Info) Description 01/18/2018 Abstract [facility] Conversion Shazia Valenzuela PA-C [address] [address] Social History Tobacco Use Types Packs/Day Years [...] AM CDT 01-21-2018 , Talia Cox [address] [place] [address] : 1950 Radiology: Mammogram Diagnostic Bilateral Bone density Z12.31 Encntr screen mammogram for malignant neoplasm of breast N95.9 Unspecified menopausal and perimenopausal disorder Fasting [] Non-Fasting [] Normal [x] Stat [] F OPERATOR * Letter - Shazia Valenzuela PA-C - 01/18/2018 12:00 AM CDT Jan 18, 2018 Talia Cox [address] [place] [address] Dear Talia Cox, Thank you for choosing [facility] for your health care needs. We appreciate the opportunity to help you maintain your well being. You recently had lab work done on 01/04/18. Your results came back normal. Please remember to follow up as discussed at your last appointment .If you have any questions please feel free to call the office at [phone], Option #3 or Option #1 to make an appointment to discuss these results. Respectfully Yours, Electronically Signed by: Shazia RM Cc: Patients Medical Record F OPERATOR documented in this encounter Plan of Treatment Upcoming Encounters Date Type Department Care Team (Latest Contact Info) Description 04/06/2025 10:24 AM CDT Hospital Encounter [facility] [address] [place] [address] Jonathan Stack IV, MD [address] [place] [address] 04/06/2025 10:24 AM CDT - 04/06/2025 11:11 AM CDT Surgery [facility] [address] [place] [address] Jonathan Stack IV, MD [address] [place] [address] [place], [place] [phone] COLONOSCOPY DIAGNOSTIC WITH/WITHOUT SPECIMEN BRUSH/WASH 05/24/2025 11:00 AM CDT Office Visit [facility] [address] [place] [address] Shazia Valenzuela PA-C 9401 [facility] [place] [address] [place], [place] [address] Scheduled Procedures Name Priority Associated Diagnoses Date/Ti [...] documented as of this encounter Care Teams Harm Reduction Worker Relationship Specialty Start Date End Date Gayla Tellez MD [address] [place] [address] PCP - General FAMILY PRACTICE 07/08/22 02/24/23 Shazia Valenzuela PA-C [address] [place] [address] [place] [address] [place] [address] PCP - General PHYSICIAN STRIPPER PRELIMINARY 02/25/23 Jose Alejandro Hartmann MD 3 [facility] [address] [place], [place] [address] Consulting Physician GASTROENTEROLOGY 07/10/18 Russ John DPM 3 [facility] [place] [place], [place] [address] Referring Physician PODIATRY/SURGERY 05/25/20 Lucio Joe MD [address] [place] [address] CARDIOVASCULAR DISEASE 10/03/20 Gayla Tellez MD [address] [place] [address] FAMILY PRACTICE 07/08/22 07/08/22 Shazia Valenzuela PA-C [address] [place] [address], [address] [place] [address] Physician Cream Cheese Maker PHYSICIAN STRIPPER PRELIMINARY 02/25/23 Dr. Ahumada DERMATOLOGY 07/10/18 Dr. Cruz CHIROPRACTIC 07/10/18 Violette Chandler Evaluation Specialist 02/14/22 documented as of this encounter
--- OUTSIDE RECORDS SUMMARY | 2025-02-27 19:31 | XMS_ITS | Referral Summary ---
Author Organization [facility] Address [address] [place] [address] Care Team Providers Care Railroad Wheels And Axle Inspector Name Role Phone Gayla Tellez MD Primary Care Provider [phone] Encounters Date Type Department Care Team Description 01/30/2025 3:30 PM CDT Office Visit [facility] Cardiology [address] [place] [address] Office Building [address] [place] [address] Lucio Joe MD Chronic heart failure with preserved ejection fraction (HCC) (Primary Dx); Dyspnea on exertion; Essential hypertension; Mixed hyperlipidemia; SVT (supraventricular tachycardia) 01/30/2025 2:00 PM CDT Ancillary Procedure [facility] [address] [place] [address] [address] [place] [address] Chronic heart failure with preserved ejection fraction (HCC) 01/05/2025 Telephone [facility] Cardiology [address] [place] [address] [facility] 8th [place] [address] [place] [address] Lucio Joe MD 12/27/2024 1:00 PM CDT - 12/27/2024 11:59 PM CDT Hospital Encounter [facility] [address] [place] [address] Lawrence Albright MD Right shoulder pain, unspecified chronicity Discharge Disposition: Discharge to home or self care 12/27/2024 1:15 PM CDT Office Visit [facility] Orthopaedic Surgery [address] [facility] 12th [place] [address] [place] [address] Lawrence Albright MD Right shoulder pain, unspecified chronicity (Primary Dx); Tear of right rotator cuff, unspecified tear extent, unspecified whether traumatic 12/13/2024 12:27 PM CDT - 12/13/2024 11:59 PM CDT Hospital Encounter [facility] [address] [facility] [address] [place] [address] Maiar Villarreal MD Lumbar radiculopathy Discharge Disposition: Discharge to home or self care 12/11/2024 Telephone [facility] [address] [facility] Advanced [facility] [address] [place] [address] Maira Villarreal MD [facility] Preprocedure 11/29/2024 2:11 PM CDT - 11/29/2024 11:59 PM CDT Hospital Encounter [facility] at [facility] [address] [place] [address] Advanced Medicine [address] [place] [address] Louis Carpenter NP Lumbar radiculopathy (Primary Dx); Spinal stenosis of lumbar region, unspecified whether neurogenic claudication present Discharge Disposition: Discharge to home or self care from Last 3 Months Allergies Active Allergy Reactions Criticality Noted Date [...] a monitor showed possible PSVT, but the freight and passenger agent reviewed and thinks it is more likely [...] on file 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 Author CCM Chronic Pain Care Plan Chronic Care Management Worsening( 12:54 PM CDT) Funmilayo Borja RN Note: Problem: Chronic Pain Goals: 1. [...] PM CDT Narrative 01/30/2025 3:[address] [facility] Cardiac Diagnostic Lab [address], [address] [place] [address] Transthoracic Echocardiographic Report Patient Name: TALIA COX A : 1950 (74y 5m) Gender: F Study Date: 01/30/2025 02:03:22 PM Ht(Inch): 66 Wt(Lb): 238.1 BSA: 2.24 Roller Mechanic: Lonnie Erickson RDCS Location: [facility] Order Provider: LUCIO JOE BMI: 38.43 BP: [...] Procedure Note Lucio Joe MD - 01/30/2025 Heart [facility] Cardiac Diagnostic Lab [address], [address] [place] [address] Transthoracic Echocardiographic Report Patient Name: TALIA COX A : 1950 (74y 5m) Gender: F Study Date: 01/30/2025 02:03:22 PM Ht(Inch): 66 Wt(Lb): 238.1 BSA: 2.24 Roller Mechanic: Lonnie Erickson RDCS Location: [facility] Order Provider:LUCIO JOE BMI: 38.43 BP: 119 / 75 Ref Provider: LCUIO JOE - PROCEDURES: Echocardiographic Report: Transthoracic complete [...] sult * Imaging Lumbar/Caudal Epidural Steroid INJ ([id number]) (12/13/2024 2:24 PM CDT) Narrative [facility] - 12/13/2024 2:24 PM CDT The images from this study are not interpreted by Radiology. Please refer to the physician's procedure / OR operative note. us Louis Carpenter NP IMG PAIN MGMT PROCEDURE S Final Result [facility] from Last 3 Months Insurance [facility] MEDICARE HMO [employer] MEDICARE HMO MEDICARE [facility] [employer] MEDICARE HMO Care Teams Railroad Wheels And Axle Inspector Relationship Specialty Start Date End Date Gayla Tellez MD PCP - General Family Medicine 06/29/22
[2025-02-27 19:32] VITALS: BP 114/67; PULSE 76; RESP 19; TEMP 36.4; O2SAT 97
--- NOTE | 2025-02-27 20:31 | ED_ITS ---
HPI - Fall General Chief Complaint: Fall Stated Complaint: fall, feels like i broke rib Time Seen by Provider: 02/27/25 20:20 History of Present Illness HPI Narrative: 74-year-old female with history of type 2 diabetes, hypertension, hyperlipidemia presents to the emergency department for left rib pain and right knee pain after a mechanical fall that occurred prior to arrival. Patient states she was at the store when she tripped over a rock in the parking lot and hit her left ribs a gainst the cart in her right knee on the pavement. She did not hit her head or lose consciousness. She is reporting pain to the left anterior ribs and right knee. Patient denies other injuries acquired. Related Data Home Medications ?Medication ?Instructions ?Recorded ?Confirmed ?Last Taken ?Type atorvastatin 40 mg tablet 40 mg PO DAILY 11/24/24 01/12/25 11/23/24 History citalopram 20 mg tablet 20 mg PO DAILY 11/24/24 01/12/25 11/23/24 History levothyroxine 75 mcg tablet 75 mcg PO DAILY 11/24/24 01/12/25 11/23/24 History metoprolol succinate 25 mg 25 mg PO DAILY 11/24/24 01/12/25 11/23/24 History tablet,extended release 24 hr polyethylene glycol 3350 17 17 g PO DAILY PRN constipation 11/24/24 01/12/25 Unknown History gram/dose oral powder (Miralax) semaglutide 2 mg/dose (8 mg/3 mL) 2 mg subcut WEEKLY 11/24/24 01/12/25 11/19/24 History subcutaneous pen injector (Ozempic) spironolactone 25 mg tablet 25 mg PO DAILY 11/24/24 01/12/25 11/23/24 History torsemide 10 mg tablet 10 mg PO DAILY PRN swelling/weight 11/24/24 01/12/25 Unknown History gain Allergies Allergy/AdvReac Type Severity Reaction Status Date / Time bupropion (From Wellbutrin) Allergy Intermediate Unknown Verified 02/27/25 19:32 metformin Allergy Intermediate Vomiting Verified 01/12/25 20:01 lisinopril AdvReac Intermediate Cough Verified 02/27/25 19:32 Review of Systems Review of Systems: All systems reviewed & are unremarkable except as noted in HPI and below PMFSH Past Medical History Medical History History of postoperative nausea and vomiting Depression Hypothyroidism DM2 (diabetes mellitus, type 2) Sleep apnea HTN (hypertension) HLD (hyperlipidemia) CHF (congestive heart failure) Surgical History Surgical History History of surgery on lower extremity jeb placed, right lower extremity History of sinus surgery History of hysterectomy Family History Family History Mother Cervical cancer Father Heart failure Other Cancer Social History Social History Smoking status: Former smoker Alcohol intake: current Drinks per week: 1 Substance use: never Substance use type: does not use Do You Feel Safe in your Home?: Yes Lack of Transportation: No Lack of Food: Never True Current Housing: I Have Housing Concerned About Future Housing: No Difficulty Paying Gas/Electric Bills: No Difficulty Paying for Meds: No Currently Unemployed: No Education: High School Diploma/GED Difficulty w/ Childcare or Family Care: No Spiritual care concerns: No Exam Narrative: GENERAL: Well-appearing, well-nourished, and in no acute distress. HEAD: Normocephalic, atraumatic. EYES: PERRLA and EOMI. ENT: Nares clear, no rhinorrhea or epistaxis. Mucous membranes moist. NECK: Supple. CHEST: Clear to auscultation. No respiratory distress. Tenderness to left chest wall inferior to the left breast with minimal area of ecchymosis. No crepitus or deformities. HEART: Regular rate and rhythm. No murmur heard. Normal peripheral pulses. ABDOMEN: Soft, nontender, nondistended, normal active bowel sounds. EXTREMITIES: RLE: Tenderness and mild edema to the anterior aspect of the right knee with mild ecchymosis. No obvious deformity. Full active and passive range of motion of knee without difficulty. No tenderness remainder of extremity. DP pulses 2+. Sensation is intact SKIN: Warm, dry, no rash. NEURO: No focal deficits. Alert and oriented x3 Course Vital Signs Vital signs: Vital Signs Temperature 97.6 F 02/27/25 19:32 Pulse Rate 76 02/27/25 19:32 Respiratory Rate 19 02/27/25 19:32 Blood Pressure 114/67 02/27/25 19:32 Pulse Oximetry 97 02/27/25 19:32 Oxygen Delivery Room Air 02/27/25 19:32 Temperature 97.6 F 02/27/25 19:32 Pulse Rate 76 02/27/25 19:32 Respiratory Rate 19 02/27/25 19:32 Blood Pressure 114/67 02/27/25 19:32 Pulse Oximetry 97 02/27/25 19:32 Oxygen Delivery Room Air 02/27/25 19:32 MDM - Fall MDM Narrative Medical decision making narrative: 74-year-old female presents to the emergency department for left rib pain and right knee pain after a mechanical fall that occurred prior to arrival. See HPI for further history. Triage vitals are stable. Patient is satting 97% on room air in no respiratory distress. Exam is notable for the above. X-ray of the left ribs shows no acute displaced left rib fracture appreciated, the lungs are clear. Right knee x-ray shows significant degenerative disease with a moderate suprapatellar joint effusion, no acute fracture. Patient updated on results. She received Tylenol lidocaine patch with improvement. We did discuss obtaining further imaging of her chest to include a CT chest noncontrast evaluate for rib fracture that was not visualized on the rib x-rays. Patient politely declines a CT of the chest and states she is ready to go home. She was placed in an Kaleb wrap for her right knee and encouraged RICE. Will send Tylenol, lidocaine patches and muscle relaxers to the pharmacy. She was also given an incentive spirometer for her chest wall contusion and instructions to use it frequently. Advised to follow-up closely with her PCP and discussed strict ED return precautions. Patient is agreeable with the plan and verbalized understanding. Discharged in stable condition. Discharge Plan Discharge Clinical Impression: Contusion of rib Qualifiers: Encounter type: initial encounter Qualified Code(s): S29.8XXA - Other specified injuries of thorax, initial encounter Contusion of knee Qualifiers: Encounter type: initial encounter Laterality: right Qualified Code(s): S80.01XA - Contusion of right knee, initial encounter Patient Disposition: Home Condition: Stable Instructions: Antibiotic Form, Knee Pain (ED), Rib Contusion (ED) Additional Instructions: Please use the incentive spirometer several times a day as directed to help prevent fluid collecting in her lungs or pneumonia. Please keep your knee wrapped with an Kaleb wrap, ice and elevated. Follow-up closely with her primary care provider. Take the medications as directed as needed for pain. Return to the emergency department if you develop worsening pain, shortness of breath, cough, fever, or other concerning symptoms. Patient Language: Venezuelan Prescriptions: New acetaminophen 500 mg capsule 500 mg PO Q6H PRN (Reason: pain) Qty: 14 0RF lidocaine 5 % adhesive patch,medicated 1 patch topical DAILY Qty: 15 0RF Rx Instructions: leave on most painful area for up to 12 hrs. do not use more than 1 patch in a 24-hour period. cyclobenzaprine 5 mg tablet 5 mg PO TID PRN (Reason: muscle spasm) Qty: 14 0RF No Action doxycycline monohydrate 100 mg tablet 100 mg PO BID 7 Days Qty: 14 0RF amoxicillin-pot clavulanate 875-125 mg tablet 1 tablet PO Q12H 10 Days Qty: 20 0RF atorvastatin 40 mg tablet 40 mg PO DAILY torsemide 10 mg tablet 10 mg PO DAILY PRN (Reason: swelling/weight gain) spironolactone 25 mg tablet 25 mg PO DAILY levothyroxine 75 mcg tablet 75 mcg PO DAILY metoprolol succinate 25 mg tablet extended release 24 hr 25 mg PO DAILY Ozempic 2 mg/dose (8 mg/3 mL) pen injector 2 mg SUBCUT WEEKLY polyethylene glycol 3350 [Miralax] 17 gram/dose powder 17 g PO DAILY PRN (Reason: constipation) citalopram 20 mg tablet 20 mg PO DAILY Follow-up/Referrals: Bianca,JAG Camacho [Primary Care Provider] -
[2025-02-27] MEDS: ACETAMINOPHEN 500 MG TABLET 1000 MG PO (20:48)
[2025-02-27] MEDS: LIDOCAINE 5% PATCH 1 PATCH TRANSDERM (20:50)
--- OUTSIDE RECORDS SUMMARY | 2025-02-27 22:26 | XMS_ITS | Clinical Summary ---
Author Organization [facility] Address [address] [place] [address] Care Team Providers Care Hoist Cylinder Loader Name Role Phone Gayla Tellez MD Primary Care Provider [phone] Allergies Active Allergy Reactions Criticality Noted Date [...] a monitor showed possible PSVT, but the yeast pusher reviewed and thinks it is more likely [...] Description 01/30/2025 3:30 PM CDT Office Visit [facility] Cardiology [address] [place] [address] Medical Office Building [address] [place] [address] Lucio Joe MD Chronic heart failure with preserved ejection fraction (HCC) (Primary Dx); Dyspnea on exertion; Essential hypertension; Mixed hyperlipidemia; SVT (supraventricular tachycardia) 01/30/2025 2:00 PM CDT Ancillary Procedure [facility] [address] [place] [address] [address] [place] [address] Chronic heart failure with preserved ejection fraction (HCC) 01/05/2025 Telephone [facility] Cardiology [address] [place] [address] [facility] 8th [place] [address] [place] [address] Lucio Joe MD 12/27/2024 1:15 PM CDT Office Visit [facility] Orthopaedic Surgery [address] [place] [address] [facility] 12th [place] [address] [place] [address] Lawrence Albright MD Right shoulder pain, unspecified chronicity (Primary Dx); Tear of right rotator cuff, unspecified tear extent, unspecified whether traumatic 12/27/2024 1:00 PM CDT - 12/27/2024 11:59 PM CDT Hospital Encounter [facility] [address] [place] [address] Lawrence Albright MD Right shoulder pain, unspecified chronicity Discharge Disposition: Discharge to home or self care 12/13/2024 12:27 PM CDT - 12/13/2024 11:59 PM CDT Hospital Encounter [facility] [place] [facility] [address] [place] [address] Maira Villarreal MD Lumbar radiculopathy Discharge Disposition: Discharge to home or self care 12/11/2024 Telephone [facility] [address] [place] [address] [facility] [address] [place] [address] Maira Villarreal MD [facility] Preprocedure 11/29/2024 2:11 PM CDT - 11/29/2024 11:59 PM CDT Hospital Encounter [facility] Pain Center at the [facility] [address] [facility] [address] [place] [address] Louis Carpenter NP Lumbar radiculopathy (Primary Dx); [...] on file 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 Gender Identity Not on file Sexual Orientation [...] Narrative 01/30/2025 3:39 PM CDT [facility] [address], [address] [place] [address] Transthoracic Echocardiographic Report Patient Name: TALIA COX A : 1950 (74y 5m) Gender: F Study Date: 01/30/2025 02:03:22 PM Ht(Inch): 66 Wt(Lb): 238.1 BSA: 2.24 Addiction Psychiatrist: Lonnie Erickson RDCS Location: [facility] Order Provider: LUCIO JOE BMI: 38.43 [...] Procedure Note Lucio Joe MD - 01/30/2025 [facility] Cardiac Diagnostic Lab [address] , [address] [place] [address] Transthoracic Echocardiographic Report Patient Name: TALIA COX A : 1950 (74y 5m) Gender: F Study Date: 01/30/2025 02:03:22 PM Ht(Inch): 66 Wt(Lb): 238.1 BSA: 2.24 Addiction Psychiatrist: Lonnie Erickson RDCS Location: [facility] Order Provider:LUCIO JOE BMI: 38.43 BP: [...] sult * Imaging Lumbar/Caudal Epidural Steroid INJ (21637) (12/13/2024 2:24 PM CDT) Narrative [facility] - 12/13/2024 2:24 PM CDT The images from this study are not interpreted by Radiology. Please refer to the physician's procedure / OR operative note. us Louis Carpenter UPPER LINING CEMENTER IMG PAIN MGMT PROCEDURE S Final Result [facility] from Last 3 Months Insurance HUMANA MEDICARE HMO HUMANA MEDICARE HMO MEDICARE [facility] MEDICARE O Care Teams Hoist Cylinder Loader Relationship Specialty Start Date End Date Gayla Tellez MD PCP - General Family Medicine 06/29/22
--- OUTSIDE RECORDS SUMMARY | 2025-02-27 22:26 | XMS_ITS | Encounter Summary ---
Author Organization [facility] Address [facility] [place] [address] Care Team Providers Care Machine Cleaner Name Role Phone Jose Alejandro Hartmann MD Unavailable Russ John DPM Unavailable [phone] Lucio Joe MD Unavailable [phone] Shazia Valenzuela PA-C Unavailable [phone] Shazia Valenzuela PA-C Primary Care Provider [phone] Encounter Details Date Type Department Care Team (Latest Contact Info) Description 06/06/2024 Vilma Message Enc [facility] Multispecialty Care - [address] [phone] [facility] Provider appointment rescheduled Social History Tobacco Use [...] Description 04/06/2025 10:24 AM CDT Hospital Encounter [facility] [address] [place] [address] Jonathan Stack IV, MD [address] [place] [address] [place] [address] [phone] 04/06/2025 10:24 AM CDT - 04/06/2025 11:11 AM CDT Surgery [facility] [address] [place] [address] Jonathan Stack IV, MD [address] [place] [address] [phone] COLONOSCOPY DIAGNOSTIC WITH/WITHOUT SPECIMEN BRUSH/WASH 05/24/2025 11:00 AM CDT Office Visit [facility] [address] [place] [phone] Shazia Valenzuela PA-C 9401 [facility] [address] [place] [address] Scheduled Procedures Name Priority Associated Diagnoses Date/Ti [...] documented as of this encounter Care Teams Machine Cleaner Relationship Specialty Start Date End Date Shazia Valenzuela PA-C [address] [facility] [address] [place], [place] [address] PCP - General PHYSICIAN PLASTICS FABRICATOR AND ASSEMBLER 02/25/23 Jose Alejandro Hartmann MD 3 [facility] [address] [place] [address] Consulting Physician GASTROENTEROLOGY 07/10/18 Russ John DPM 3 [facility] [address] [place] [address] Referring Physician PODIATRY/SURGERY 05/25/20 Lucio Joe MD [address] [place] [address] CARDIOVASCULAR DISEASE 10/03/20 Shazia Valenzuela, [facility] [address] [place] [address], 1st [place] [address] Physician Industrial Production Manager PHYSICIAN PLASTICS FABRICATOR AND ASSEMBLER 02/25/23 Dr. Ahumada DERMATOLOGY 07/10/18 Dr. Cruz CHIROPRACTIC 07/10/18 Violette Chandler Toggle Press Folder And Feeder 02/14/22 documented as of this encounter
--- OUTSIDE RECORDS SUMMARY | 2025-02-27 22:26 | XMS_ITS | Encounter Summary ---
Author Organization [facility] Address [facility] [place] [address] Care Team Providers Care Giving Officer Name Role Phone Jose Alejandro Hartmann MD Unavailable Russ John DPKermit Unavailable [phone] Lucio Joe MD Unavailable [phone] Gayla Tellez MD Unavailable [phone] Gayla Tellez MD Primary Care Provider + Shazia Valenzuela PA-C Unavailable [phone] Shazia Valenzuela PA-C Primary Care Provider [phone] Encounter Details Date Type Department Care Team (Late st Contact Info) Description 06/06/2018 Abstract [facility] Conversion Shazia Valenzuela PA-C 9401 [facility] 112 [place] [address] Social History Tobacco Use Types Packs/Day Years [...] of these test. Thank you, Shazia RM E HALL HOST/HOSTESS documented in this encounter Plan of Treatment Upcoming Encounters Date Type Department Care Team (Latest Contact Info) Description 04/06/2025 10:24 AM CDT Hospital Encounter [facility] [address] [place] [address] [phone] Jonathan Stack IV, MD [address] [place] [address] [phone] 04/06/2025 10:24 AM CDT - 04/06/2025 11:11 AM CDT Surgery [facility] [address] [place] [address] Jonathan Stack IV, MD [address] [place] [address] [phone] COLONOSCOPY DIAGNOSTIC WITH/WITHOUT SPECIMEN BRUSH/WASH 05/24/2025 11:00 AM CDT Office Visit [address] [place] [address] Shazia Valenzuela PA-C 9401 [facility] 112 [place], [place] [phone] Scheduled Procedures Name Priority Associated Diagnoses Date/Ti [...] documented as of this encounter Care Teams Giving Officer Relationship Specialty Start Date End Date Gayla Tellez MD [address] [place] [address] PCP - General FAMILY PRACTICE 07/08/22 02/24/23 Shazia Valenzuela PA-C [address] [address] PCP - General PHYSICIAN CURTAIN CUTTER 02/25/23 Jose Alejandro Hartmann MD 3 [facility] [address] [place] [address] Consulting Physician GASTROENTEROLOGY 07/10/18 Russ John DPM [address] [address] Referring Physician PODIATRY/SURGERY 05/25/20 Lucio Joe MD [address]15 [place] [address] CARDIOVASCULAR DISEASE 10/03/20 Gayla Tellez MD [address] [place] [address] FAMILY PRACTICE 07/08/22 07/08/22 Shazia Valenzuela PA-C [address] [place], [place] [address], [place] [address] Physician Rn Enterostomal PHYSICIAN CURTAIN CUTTER 02/25/23 Dr. Ahumada DERMATOLOGY 07/10/18 Dr. Cruz CHIROPRACTIC 07/10/18 Violette Chandler Residential Leasing Manager 02/14/22 documented as of this encounter
--- OUTSIDE RECORDS SUMMARY | 2025-02-27 22:26 | XMS_ITS | Referral Summary ---
Author Organization [facility] Address [address] [place] [address] Care Team Providers Care Ladle Car Operator Name Role Phone Gayla Tellez MD Primary Care Provider [phone] Encounters Date Type Department Care Team Description 01/30/2025 3:30 PM CDT Office Visit [facility] Cardiology [address] [place] [address] Office Building [address] [place] [address] Lucio Joe MD Chronic heart failure with preserved ejection fraction (HCC) (Primary Dx); Dyspnea on exertion; Essential hypertension; Mixed hyperlipidemia; SVT (supraventricular tachycardia) 01/30/2025 2:00 PM CDT Ancillary Procedure [facility] [address] [place] [address] [address] [place] [address] Chronic heart failure with preserved ejection fraction (HCC) 01/05/2025 Telephone [facility] Cardiology [address] [place] [address] [facility] 8th [place] [address] [place] [address] Lucio Joe MD 12/27/2024 1:00 PM CDT - 12/27/2024 11:59 PM CDT Hospital Encounter [facility] [address] [place] [address] Lawrence Albright MD Right shoulder pain, unspecified chronicity Discharge Disposition: Discharge to home or self care 12/27/2024 1:15 PM CDT Office Visit [facility] Orthopaedic Surgery [address] [facility] 12th [place] [address] [place] [address] Lawrence Albright MD Right shoulder pain, unspecified chronicity (Primary Dx); Tear of right rotator cuff, unspecified tear extent, unspecified whether traumatic 12/13/2024 12:27 PM CDT - 12/13/2024 11:59 PM CDT Hospital Encounter [facility] [place] [facility] [address] [facility] [address] [place] [address] Maira Villarreal MD Lumbar radiculopathy Discharge Disposition: Discharge to home or self care 12/11/2024 Telephone [facility] [place] [facility] [address] [facility] [address] [place] [address] Maira Villarreal MD [facility] Preprocedure 11/29/2024 2:11 PM CDT - 11/29/2024 11:59 PM CDT Hospital Encounter [facility] Center at the [facility] Advanced Medicine [address] [place] [address] Advanced Medicine [address] [place] [address] Louis Carpenter NP Lumbar radiculopathy (Primary Dx); [...] a monitor showed possible PSVT, but the advertising internship reviewed and thinks it is more likely [...] on file Legal Sex Female 5:18 AM MIXER SLAGMAN Gender Identity Not on file Sexual Orientation [...] PM CDT Narrative 01/30/2025 3:39 PM CDT [facility] Cardiac Diagnostic Lab [address] [place] [address] Transthoracic Echocardiographic Report Patient Name: TALIA COX A : 1950 (74y 5m) Gender: F Study Date: 01/30/2025 02:03:22 PM Ht(Inch): 66 Wt(Lb): 238.1 BSA: 2.24 Director Digital Catalogue: Lonnie Erickson RDCS Location: [facility] Order Provider: LUCIO JOE BMI: 38.43 BP: [...] Note Lucio Joe MD - 01/30/2025 Heart [facility] Cardiac Diagnostic Lab [address], [address] [place] [address] Transthoracic Echocardiographic Report Patient Name: TALIA COX A : 1950 (74y 5m) Gender: F Study Date: 01/30/2025 02:03:22 PM Ht(Inch): 66 Wt(Lb): 238.1 BSA: 2.24 Director Digital Catalogue: Lonnie Erickson RDCS Location: [facility] Order Provider:LUCIO JOE BMI: 38.43 BP: 119 [...] agrees with it. Electronically signed by: Abundio Walekr M.D. us Lawrence Albright MD IMG XR PROCEDURES Final Re sult * Imaging Lumbar/Caudal Epidural Steroid INJ ([id number]) (12/13/2024 2:24 PM CDT) Narrative [facility] - 12/13/2024 2:24 PM CDT The images from this study are not interpreted by Radiology. Please refer to the physician's procedure / OR operative note. us Louis Carpenter NP IMG PAIN MGMT PROCEDURE S Final Result [facility] from Last 3 Months Insurance [facility] MEDICARE HMO HUMANA MEDICARE HMO MEDICARE [facility] HUMANA MEDICARE HMO Care Teams Ladle Car Operator Relationship Specialty Start Date End Date Gayla Tellez MD PCP - General Family Medicine 06/29/22
--- OUTSIDE RECORDS SUMMARY | 2025-02-27 22:27 | XMS_ITS | Encounter Summary ---
Author Organization [facility] Address [facility] [place] [address] Care Team Providers Care Supervisor Sewer System Name Role Phone Jose Alejandro Hartmann MD Unavailable Russ John DPKermit Unavailable [phone] Lucoi Joe MD Unavailable [phone] Gayla Tellez MD Unavailable [phone] Gayla Tellez MD Primary Care Provider + Shazia Valenzuela PA-C Unavailable [phone] Shazia Valenzuela PA-C Primary Care Provider + [phone] Encounter Details Date Type Department Care Team (Late st Contact Info) Description 02/14/2018 Abstract [facility] Con[facility] Shazia Valenzuela PA-C [address] [facility] 112 [place] [address] Social History Tobacco Use Types Packs/Day Years [...] AM CDT 02-14-2018 , Talia Cox [address] [place] [address] : 1950 Radiology: CAT Scan Chest w/ contrast R91.8 Other nonspecific abnormal finding of lung field Fasting [] Non-Fasting [] Normal [x] Stat [] CATOR documented in this encounter Plan of Treatment Upcoming Encounters Date Type Department Care Team (Latest Contact Info) Description 04/06/2025 10:24 AM CDT Hospital Encounter [facility] [address] [place] [address] Jonathan Stack IV, MD [address] [place] [address] [place] [address]67[address] 04/06/2025 10:24 AM CDT - 04/06/2025 11:11 AM CDT Surgery [facility] [address] [place] [address] Jonathan Stack IV, MD [address] [place] [address] [place] [address] [phone] COLONOSCOPY DIAGNOSTIC WITH/WITHOUT SPECIMEN BRUSH/WASH 05/24/2025 11:00 AM CDT Office Visit [facility] [address] [place] [address] Shazia Valenzuela PA-C [address] [address] Scheduled Procedures Name Priority Associated Diagnoses Date/Ti [...] documented as of this encounter Care Teams Supervisor Sewer System Relationship Specialty Start Date End Date Gayla Tellez MD [address] [place] [address] PCP - General FAMILY PRACTICE 07/08/22 02/24/23 Shazia Valenzuela PA-C [address] [address] PCP - General PHYSICIAN CORPORATE GENERAL MANAGER 02/25/23 Jose Alejandro Hartmann MD [address] [place] [address] Consulting Physician GASTROENTEROLOGY 07/10/18 Russ John DPM [address] [place] [address] Referring Physician PODIATRY/SURGERY 05/25/20 Lucio Joe MD [address] [place] [address] CARDIOVASCULAR DISEASE 10/03/20 Gayla Tellez MD [address] [place] [address] FAMILY PRACTICE 07/08/22 07/08/22 Shazia Valenzuela PA-C [address] [place] [address], [address] [place] [address] Physician Fuel Efficient Automobile Designer PHYSICIAN CORPORATE GENERAL MANAGER 02/25/23 Dr. Ahumada DERMATOLOGY 07/10/18 Dr. Cruz CHIROPRACTIC 07/10/18 Violette Chandler Swatch Maker 02/14/22 documented as of this encounter
--- OUTSIDE RECORDS SUMMARY | 2025-02-27 22:27 | XMS_ITS | Encounter Summary ---
Author Organization [facility] Address [facility] [place] [address] Care Team Providers Care Language And Literature Division Chair Name Role Phone Jose Alejandro Hartmann MD Unavailable Russ John DPKermit Unavailable [phone] Lucio Joe MD Unavailable [phone] Gayla Tellez MD Unavailable [phone] Gayla Tellez MD Primary Care Provider + Shazia Valenzuela PA-C Unavailable [phone] Shazia Valenzuela PA-C Primary Care Provider + [phone] Encounter Details Date Type Department Care Team (Late st Contact Info) Description 01/18/2018 Abstract [facility] Conversion Shazia Valenzuela PA-C [address] [address] Social History Tobacco Use Types Packs/Day Years [...] AM CDT 01-21-2018 , Talia Cox [address] [place] [address] : 1950 Radiology: Mammogram Diagnostic Bilateral Bone density Z12.31 Encntr screen mammogram for malignant neoplasm of breast N95.9 Unspecified menopausal and perimenopausal disorder Fasting [] Non-Fasting [] Normal [x] Stat [] CTOR AND PROFESSOR * Letter - hSazia Valenzuela PA-C - 01/18/2018 12:00 AM CDT Jan 18, 2018 Talia Cox [address] [place] [address] Dear Talia Cox, Thank you for choosing [facility] for your health care needs. We appreciate the opportunity to help you maintain your well being. You recently had lab work done on 01/04/18. Your results came back normal. Please remember to follow up as discussed at your last appointment .If you have any questions please feel free to call the office at [phone], Option #3 or Option #1 to make an appointment to discuss these results. Respectfully Yours, Electronically Signed by: Shazia RM Cc: Patients Medical Record CTOR AND PROFESSOR documented in this encounter Plan of Treatment Upcoming Encounters Date Type Department Care Team (Latest Contact Info) Description 04/06/2025 10:24 AM CDT Hospital Encounter [facility] [address] [place] [address] Jonathan Stack IV, MD [address] [place] [address] 04/06/2025 10:24 AM CDT - 04/06/2025 11:11 AM CDT Surgery [facility] [address] [place] [address] Jonathan Stack IV, MD [address] [place] [address] [place], [place] [address] COLONOSCOPY DIAGNOSTIC WITH/WITHOUT SPECIMEN BRUSH/WASH 05/24/2025 11:00 AM CDT Office Visit [facility] [address] [place] [address] Shazia Valenzuela PA-C [address] [facility] [address] [place], [place] [address] Scheduled Procedures Name Priority Associated Diagnoses Date/Ti [...] documented as of this encounter Care Teams Language And Literature Division Chair Relationship Specialty Start Date End Date Gayla Tellez MD [address] [place] [address] PCP - General FAMILY PRACTICE 07/08/22 02/24/23 Shazia Valenzuela PA-C [address] [place] [address] [address] [place] [address] PCP - General PHYSICIAN GRAIN DRIER OPERATOR 02/25/23 Jose Alejandro Hartmann MD 3 [facility] [address] [place], [place] [address] Consulting Physician GASTROENTEROLOGY 07/10/18 Russ John DPM 3 [facility] [address] [place], [place] [address] Referring Physician PODIATRY/SURGERY 05/25/20 Lucio Joe MD [address] [place] [address] CARDIOVASCULAR DISEASE 10/03/20 Gayla Tellez MD [address] [place] [address] FAMILY PRACTICE 07/08/22 07/08/22 Shazia Valenzuela PA-C [address] [place] [address], [address] [place] [address] Physician Signal Operator PHYSICIAN GRAIN DRIER OPERATOR 02/25/23 Dr. Ahumada DERMATOLOGY 07/10/18 Dr. Cruz CHIROPRACTIC 07/10/18 Violette Chandler Petroleum Supply Specialist 02/14/22 documented as of this encounter
--- OUTSIDE RECORDS SUMMARY | 2025-02-27 22:28 | XMS_ITS | Clinical Summary ---
Author Organization [facility] Address [facility] [place] [address] Care Team Providers Care Management Professional Name Role Phone Jose Alejandro Hartmann MD Unavailable Russ John DPKermit Unavailable [phone] Lucio Joe MD Unavailable Shaiza Patiño PA-C Unavailable [phone] Shazia Patiño PA-C Primary Care Provider [phone] Allergies Active Allergy Reactions Criticality Noted Date Comments Bupropion Other (see comment) 12/14/2011 Sore throat Lisinopril Cough 10/03/2020 Metformin GI Upset 01/06/2021 Medications CPAP DME DEVICE [id number] ctive Active aspirin 81 MG chewable tablet [...] disease, without long-term current use of insulin ([facility]) INJECT 2MG SUBCUTANEOUSLY ONCE A WEEK 3 [...] kidney disease 09/03/2021 CHF (congestive heart failure) ([facility]) 06/06/2020 Chondromalacia of patella 05/17/2018 Primary osteoarthritis of both knees 05/17/2018 Lower extremity edema 02/10/2018 Anxiety 03/16/2014 Overview (07/07/2018): Date Onset: 03/16/2014 Depression 12/14/2011 Overview (07/07/2018): declines meds, encouraged counseling Hyperlipidemia 12/14/2011 Hypertension, essential 12/14/2011 Hypothyroidism 12/14/2011 Morbid obesity 12/14/2011 Obstructive sleep apnea 12/14/2011 Overview (07/07/2018): Date Onset: 2009, wears cpap Diabetes ([facility]) SVT (supraventricular tachycardia) ([facility] Atrial fibrillation ([facility]) Overview (04/11/2020): Seen by cardiology after a monitor showed possible PSVT, but the animal behaviourist reviewed and thinks it is more likely atrial fibrillation, but it was only a few second run of this about 5 seconds. He does not recommend any further evaluation or treatment of this unless she has symptoms at the time or if its lasting greater than 6 minutes. (HFpEF) heart failure with p reserved ejection fraction ([facility]) Resolved Problems Problem Noted Date Diagnosed Date Resolved Date Encounter for screening for malignant neoplasm of colon 02/21/2025 02/26/2025 Equinus deformity of both feet 02/10/2018 07/07/2018 Plantar fasciitis 02/10/2018 07/07/2018 Talipes calcaneovalgus 02/10/201807/07 Gastro-esophageal reflux dis ease without esophagitis 12/14/2011 07/07/2018 Hiatal hernia 04/30/2010 07/07/2018 Overview (07/07/2018): Date Onset: 02/25/2012 Encounters Date Type Department Care Team Description 02/21/2025 Prep for Procedure [facility] [address] [facility], [address] [place] [phone] Jonathan Stack IV, MD 02/20/2025 1:50 PM CDT Office Visit [facility] [address] [facility], [address] [place] [address] Jonathan Stack IV, MD Consult For Colonoscopy 02/20/2025 Travel 02/14/2025 11:00 AM CDT Office Visit [address] [address] Shazia Patiño PA-C Follow Up (3 month ) 02/14/2025 Travel 02/07/[address] [phone] Shazia Patiño PA-C Medication Request 01/15/2025 Results Follow-Up [address] [phone] Shazia Patiño PA-C LIPID PANEL, VITAMIN D, 25 OH, VITAMIN B12 / FOLATE, Additional followed-up results: 3 01/13/2025 10:55 AM CDT - 01/13/2025 11:59 PM CDT Hospital Encounter [facility] [address] [place] [address] Shazia Patiño PA-C Discharge Disposition: Home or Self Care (Routine Discharge) 01/13/[address] [address] Shazia Patiño PA-C Orders 01/13/2025 Travel 01/12/2025 Scan HEALTH INFO SRVCS Scanned, [facility] 01/04/2025 1:40 PM CDT Office Visit [address] [place] [phone] Shazia Patiño, UMA Follow Up (Med review) 01/04/2025 Travel from [...] Former Cigarettes 0.1 3 1 [phone] - [phone] Smokeless Tobacco: Former Tobacco Cessation:Counseling Given: Yes [...] Description 04/06/2025 10:24 AM CDT Hospital Encounter [facility] [address] [place] [address] Jonathan Stack IV, MD [address] [place] [address] [place] [address] 04/06/2025 10:24 AM CDT - 04/06/2025 11:11 AM CDT Surgery [facility] [id number] [place] [id number] Jonatahn Stack IV, MD [address] [facility] [address] [place] [address] COLONOSCOPY DIAGNOSTIC WITH/WITHOUT SPECIMEN BRUSH/WASH 05/24/2025 11:00 AM CDT Office Visit [facility] [address] [place] [address] Shazia Patiño PA-C [address] [place] [address] Scheduled Procedures Name Priority Associated Diagnoses Date/Ti [...] 04/11/2020, 05/23/2019, Additional history exists PHQ-2 (Physician [place]) Completed 02/20/2025 Meningococcal B Vaccine Aged Out [...] Trujillo, RN Medical Devices Implanted Type Area Rug Clipper Device Identifier Shelf Expiration Date Model / Serial / Lot Levi Levi Right: Leg Procedures Procedure Name Priority Date/Time Associated Diagnosis Comments HEMOGLOBIN, GLYCOSYLATED Routine 01/13/2025 10:57 AM CDT Type 2 diabetes mellitus with stage 3a chronic kidney disease, without long-term current use of insulin ([facility]) CBC W/DIFF AUTOMATED Routine 01/13/2025 10:56 AM CDT Fatigue, unspecified type BASIC METABOLIC PANEL Routine 01/13/2025 10:56 AM CDT Type 2 diabetes mellitus with stage 3a chronic kidney disease, without long-term current use of insulin ([facility]) VITAMIN B12 / FOLATE Routine 01/13/2025 10:56 AM CDT Fatigue, unspecified type VITAMIN D, 25 OH Routine 01/13/2025 10:5 6 AM CDT Fatigue, unspecified type Stage 3b chronic kidney disease (CKD) ([facility]) LIPID PANEL Routine 01/13/2025 10:56 AM CDT HLD (hyperlipidemia) MG SCREENING W SHELL HAYLIE DIGI Routine 05/23/2024 9:17 AM CDT Screening mammogram, encounter for BONE DENSITY/DEXA Routine 12/16/2022 10: 16 AM CDT Post-menopausal DIABETIC RETINOPATHY EXAM (NEGATIVE)(SCAN ORDER) Routine 02/02/2022 HEPATITIS C ANTIBODY 08/11/2018 10:58 AM FAMILY PRACTITIONER COLONOSCOPY/EGD GENERIC (SCAN ORDER) 03/05/2015 from Last 3 Months or Most Recently Relevant to Health Maintenance Results * (ABNORMAL) HEMOGLOBIN, GLYCOSYLATED (01/13/2025 10:57 AM CDT) HGB A1C 5.8(H) <5.7 % 01/14/2025 2:10 PM CDT [facility] Comment: ADA GUIDELINES 2010 5.7 TO 6.4% INCREASED RISK OF DIABETES > OR = 6.5% CONSISTENT WITH DIABETES ESTIMATED AVG GLUCOSE 120 mg/dL 01/14/2025 2:10 PM CDT [facility] 01/13/2025 10:5 7 AM CDT Shazia Patiño PA-C LABORATORY Final Resu lt Performing Organization Address City/[facility]/ZIP Co de Phone Number [facility] [address] [address], [place] [phone] * (ABNORMAL) VITAMIN B12 / FOLATE (01/13/2025 10:56 AM CDT) VITAMIN B12 S/P/B 185(L) 193 - 986 PG/ML 01/13/2025 12:26 PM CDT [facility] FOLATE 28.8 8.6 - 58.9 NG/ML 01/13/2025 12:26 PM CDT [facility] 01/13/2025 10:5 6 AM CDT us Shazia Patiño PA-C LABORATORY Final Resu lt [facility] [address] [place] [address], [place] [phone] * (ABNORMAL) BASIC METABOLIC PANEL (01/13/2025 10:56 AM CDT) [facility] GLUCOSE 108(H) 70 - 99 MG/DL 01/13/2025 12:26 PM CDT [facility] BUN 16 7 - 18 MG/DL 01/13/2025 12:26 PM T [facility] CREATININE S/P/B 1.30(H) 0.55 - 1.02 MG/DL 01/13/2025 12:26 PM T [facility] SODIUM S/P/B 137 136 - 145 MMOL/L 01/13/2025 12:26 PM T [facility] POTASSIUM S/P/B 4.0 3.5 - 5.1 MMOL/L 01/13/2025 12:26 PM T [facility] CHLORIDE S/P/B 101 100 - 108 MMOL/L 01/13/2025 12:26 PM T [facility] CO2 24.6 21 - 32 MMOL/L 01/13/2025 12:26 PM T [facility] CALCIUM S/P/B 9.3 8.5 - 10.1 MG/DL 01/13/2025 12:26 PM T [facility] ANION GAP 11.4 5 - 15 MMOL/L 01/13/2025 12:26 PM T [facility] BUN CREATININE RATIO 12.3 6 - 26 01/13/2025 12:26 PM T [facility] GFR ESTIMATE 43(L) >90 ML/MIN/1.7 3 M2 01/13/2025 12:26 PM T [facility] Comment: NOTE: eGFR is not calculated for patients <18 years of age. This is an estimated GFR calculation using the new CKD EPI creatinine equation without race and so does not require a correction factor for race. This estimated GFR should not be used for calculating drug doses. 01/13/2025 10:5 6 AM CDT us Shazia Patiño PA-C LABORATORY Final Resu lt [facility] [address] [place] [address], * LIPID PANEL (01/13/2025 10:56 AM CDT) CHOLESTEROL 156 <200 MG/DL 01/13/2025 12:26 PM CDT [facility] TRIGLYCERIDES 137 <150 MG/DL 01/13/2025 12:26 PM T [facility] HDL 54 >40.0 MG/DL 01/13/2025 12:26 PM T [facility] LDL (CALCULATED) 75 <100 MG/DL 01/14/20 12:26 PM T [facility] Comment:CALCULATED USING THE FRIEDEWALD EQUATION NON HDL CHOLESTEROL 102 <130 MG/DL 01/13 12:26 PM T [facility] Comment: NOTE: WHEN THE TRIGLYCERIDES ARE >200 mg/dL, NON HDL C IS A SECONDARY TARGET OF THERAPY, WITH A GOAL 30 mg/dL HIGHER THAN THE IDENTIFIED LDL C GOAL. CHOL/HDL RATIO 2.9 0.0 - 4.5 01/13/2025 12:26 PM T [facility] VLDL CALCULATION 27 5 - 55 MG/DL 01/13/2025 12:26 PM T [facility] LIPID INTERPRETATION 01/13/2025 12:26 PM T [facility] Comment: NIH CONCENSUS REPORT RECOMMENDATIONS: ADULT CHILD LOW RISK: CHOLESTEROL <200 <170 TRIGLYCERIDE <150 --- HDL >=60 --- LDL <100 <110 BORDERLINE: CHOLESTEROL 200-239 170-199 TRIGLYCERIDE 150-199 --- HDL 40-59 --- LDL 100-159 110-129 HIGH RISK: CHOLESTEROL >=240 >=200 TRIGLYCERIDE >=200 --- HDL <40 --- LDL >=160 >=130 01/13/2025 10:5 6 AM CDT Shazia Patiño PA-C LABORATORY Final Resu lt [facility] [address] [address], [place] [phone] * CBC W/DIFF AUTOMATED (01/13/2025 10:56 AM CDT) WBC 7.59 4.50 - 11.00 x10'3/uL 01/15/2025 10:16 AM CDT [facility] RBC 4.71 4.20 - 5.40 x10'6/uL 01/15/2025 10:16 AM CDT [facility] HGB 13.8 12.0 - 16.0 G/DL 01/15/2025 10:16 AM CDT [facility] HCT 41.0 38.0 - 48.0 % 01/15/2025 10:16 AM CDT [facility] MCV 87.0 81.0 - 99.0 FL 01/15/2025 10:16 AM CDT [facility] MCH 29.3 27.0 - 31.0 PG 01/15/2025 10:16 AM CDT [facility] MCHC 33.7 32.0 - 36.0 G/DL 01/15/2025 10:16 AM CDT [facility] RDW 14.1 11.5 - 14.5 % 01/15/2025 10:16 AM CDT [facility] PLT 210 130 - 400 x10'3/uL 01/15/2025 10:16 AM CDT [facility] MPV 9.3 9.3 - 12.2 FL 01/15/2025 10:16 AM CDT [facility] SEG NEUTROPHILS 70 % 10:18 AM CDT [facility] LYMPHOCYTES 21 % 01/15/2025 10:18 AM CDT [facility] MONOCYTES 7 % 01/15/2025 10:18 AM CDT [facility] EOSINOPHILS 2 % 01/15/2025 10:18 AM CDT [facility] ABS. NEUTROPHILS TOTAL 5.32 1.80 - 7.70 x10'3/uL 01/15/2025 10:18 AM CDT [facility] ABS. LYMPHOCYTES 1.59 1.00 - 4.80 x10'3/uL 01/15/2025 10:18 AM CDT [facility] ABS. MONOCYTES 0.53 0.24 - 0.86 x10'3/uL 01/15/2025 10:18 AM CDT [facility] ABS. EOSINOPHILS 0.15 0.04 - 0.36 x10'3/uL 01/15/2025 10:18 AM CDT [facility] PLT MORPH. NORMAL 01/15/2025 10:18 AM T [facility] RBC MORPHOLOGY NORMAL 01/15/2025 10:18 AM CDT [facility] 01/13/2025 10:5 6 AM CDT us Shazia Patiño PA-C LABORATORY Final Resu lt [facility] [address] [place] [address], * VITAMIN D, 25 OH (01/13/2025 10:56 AM CDT) VITAMIN D 25 HYDROXY S/P/B 54 30 - 100 NG/ML 01/13/2025 12:07 PM CDT [facility] Comment: INTERPRETATION DEFICIENT <20 INSUFFICIENT 20-29 SUFFICIENT 30-100 01/13/2025 10:5 6 AM CDT Shazia Patiño PA-C LABORATORY Final Resu lt [facility] [address] [place] [address], * MG SCREENING W SHELL HAYLIE DIGI [...] 10:34 AM Narrative 05/23/2024 10:36 AM CDT [address] [address] EXAMINATION: BILATERAL SCREENING MAMMOGRAM CLINICAL INDICATION: 73 [...] (02/02/2022) us Documents Scanned SCANNING Final Result [facility] ONBASE * HEPATITIS C ANTIBODY (08/11/2018 10:58 AM FAMILY PRACTITIONER) HEPATITIS C AB <0.1 0.0 - 0.9 s/co ratio [facility] 1 Comment: Negative: < 0.8 Indeterminate: 0.8 - 0.9 Positive: > 0.9 The CDC recommends that a positive HCV antibody result be followed up with a HCV Nucleic Acid Amplification test (299790). 08/11/2018 10:5 8 AM FAMILY PRACTITIONER 08/11/2018 Narrative [facility] - 08/12/2018 7:36 AM FAMILY PRACTITIONER Performed at: [facility] [id number] [facility] Supervisor: Evangelista Trujillo PhD, Phone: [phone] us Shazia Patiño PA-C LABORATORY Final Resu lt [facility] [address] [place] [address] [facility] 1 * COLONOSCOPY/EGD GENERIC (03/05/2015) 03/05/2015 Narrative 03/05/2015 Ordered by an unspecified provider. us Documents Scanned SCANNING Final Result from Last 3 Months or Most Recently Relevant to Health Maintenance Additional Health Concerns Active Problems Noted Date Diagnosed Date Autogenerated Problem 02/21/2025 Insurance [employer] Advance Directives Documents on File Type Date Recorded Patient Clinical Programmer Expl anation Advance Directives and Living Will 03/06/2015 12:00 AM ADVANCED DIRECTIVES Advance Directives and Living Will 03/05/2015 12:00 AM ADVANCED DIRECTIVES Advance Directives and Living Will 11/03/2021 10:05 AM POLST Care Teams Management Professional Relationship Specialty Start Date End Date Shazia Patiño PA-C [address] [facility] [address] [place] [address] PCP - General PHYSICIAN CHRONOMETER ASSEMBLER AND ADJUSTER 02/25/23 Jose Alejandro Hartmann MD [address] [facility] [address] [place] [address] Consulting Physician GASTROENTEROLOGY 07/10/18 Russ John DPM [address] [facility] [address] [place] [address] Referring Physician PODIATRY/SURGERY 05/25/20 Lucio Joe MD [address] [place] [address] CARDIOVASCULAR DISEASE 10/03/20 Shazia Patiño, PAShubhamC [address] [place] [address], [address] [place] [address] Physician Director Of Land PHYSICIAN CHRONOMETER ASSEMBLER AND ADJUSTER 02/25/23 Dr. Ahumada DERMATOLOGY 07/10/18 Dr. Cruz CHIROPRACTIC 07/10/18 Violette Chandler Staff Developer 02/14/22
--- OUTSIDE RECORDS SUMMARY | 2025-02-27 22:28 | XMS_ITS | Encounter Summary ---
Author Organization [facility] Address [facility] [place] [address] Care Team Providers Care Kiln Firer Name Role Phone Jose Alejandro Hartmann MD Unavailable Russ John DPM Unavailable [phone] Lucio Joe MD Unavailable [phone] Gayla Tellez MD Unavailable [phone] Gayla Tellez MD Primary Care Provider + Shazia Valenzuela PA-C Unavailable [phone] Shazia Valenzuela PA-C Primary Care Provider [phone] Encounter Details Date Type Department Care Team (Late st Contact Info) Description 08/31/2017 [facility] Lucien Lr MD [address] [facility] [address] [place] [address] Social History Tobacco Use Types [...] CST Aug 31, 2017 Talia Cox [address] [place] [address] Dear Talia Cox, Thank you for choosing [facility] for your health care needs. We appreciate the opportunity to help you maintain your well being. You recently had labs drawn. Your results came back stable. Please remember to follow up as discussed at your last appointment and recheck your labs in six months. If you have any questions please feel free to call the office [phone], Option #3 or Option #1 to make an appointment to discuss these results. Respectfully Yours, Electronically Signed by: Lucien Lr MD Cc: Patients Medical Record RHOUSE OPERATOR * Letter - Lucien Lr MD - 08/31/2017 12:00 AM CST 08-31-2017 , Talia Cox [address] [id number] : 1950 Lab Order TSH with Reflex T4 E03.9 Hypothyroidism, unspecified Lab Order CMP; Lipid profile E78.4 Hyperlipidemia Lab Order Hemoglobin A1C R73.01 Impaired Fasting Glucose Recheck these labs in 6 months (February) Please remember to fast 8-10 hours before labs Normal [x] Stat [] RHOUSE OPERATOR * Letter - Lucien Lr MD - 08/31/2017 12:00 AM CST 08-31-2017 , Talia Cox [address] [place] [address] : 1950 Lab Order CMP; Lipid Panel E78.4 Other hyperlipidemia Normal [] Stat [] RHOUSE OPERATOR documented in this encounter Plan of Treatment Upcoming Encounters Date Type Department Care Team (Latest Contact Info) Description 04/06/2025 10:24 AM CDT Hospital Encounter [facility] [address] [place] [address] Jonathan Stack IV, MD [address] [place] [address] [place] [id number] 04/06/2025 10:24 AM CDT - 04/06/2025 11:11 AM CDT Surgery [facility] [address] [place] [address] Jonathan Stack IV, MD [address] [place] [id number] COLONOSCOPY DIAGNOSTIC WITH/WITHOUT SPECIMEN BRUSH/WASH 05/24/2025 11:00 AM CDT Office Visit [facility] [address] [place] [phone] Shazia Valenzuela PA-C [address] [facility] [address] [place] [address] Scheduled Procedures Name Priority Associated Diagnoses Date/Ti [...] documented as of this encounter Care Teams Kiln Firer Relationship Specialty [place] [address] [place] [address] PCP - General FAMILY PRACTICE 07/08/22 02/24/23 Shazia Valenzuela PA-C [address] [facility] [address] [place] [address] PCP - General PHYSICIAN AUTOMOBILE MECHANIC ASSISTANT 02/25/23 Jose Alejandro Hartmann MD 3 [facility] [address] [place] [address] Consulting Physician GASTROENTEROLOGY 07/10/18 Russ John DPM 3 [facility] [address] [place] [address] Referring Physician PODIATRY/SURGERY 05/25/20 Lucio Joe MD [address] [place] [address] CARDIOVASCULAR DISEASE 10/03/20 Gayla Tellez MD [address] [place] [address] FAMILY PRACTICE 07/08/22 07/08/22 Shazia Valenzuela, PA-C [address] [place] [address], [address] [place] [address] Physician Bulbs Farmworker PHYSICIAN AUTOMOBILE MECHANIC ASSISTANT 02/25/23 Dr. Ahumada DERMATOLOGY 07/10/18 Dr. Cruz CHIROPRACTIC 07/10/18 Violette Chandler [facility] Worker 02/14/22 documented as of this encounter
--- OUTSIDE RECORDS SUMMARY | 2025-02-27 22:28 | XMS_ITS | Encounter Summary ---
Author Organization [facility] Address [facility] [place] [address] Care Team Providers Care Instrument Panel Assembler Name Role Phone Jose Alejandro Hartmann MD Unavailable Russ John DPM Unavailable [phone] Lucio Joe MD Unavailable [phone] Shazia Valenzuela PA-C Unavailable [phone] Shazia Valenzuela PA-C Primary Care Provider Reason for Visit * Reason Onset Date Comments Results 01/15/2025 Encounter Details Date Type Department Care Team (Late st Contact Info) Description 01/15/2025 Results Follow-Up [facility] [address] [place] [phone] Shazia Valenzuela PA-C [address] [facility] [address] [place] [address] LIPID PANEL, VITAMIN D, 25 OH, VITAMIN [...] and platelets. ----- Message ----- From: Zhang, [id number] Sent: 01/13/2025 12:07 PM CDT To: Shazia Valenzuela PA-C documented in this encounter Plan of Treatment Upcoming Encounters Date Type Department Care Team (Latest Contact Info) Description 04/06/2025 10:24 AM CDT Hospital Encounter [facility] [address] [place], [place] [phone] Jonathan Stack IV, MD [address] [place] [address] 04/06/2025 10:24 AM CDT - 04/06/2025 11:11 AM CDT Surgery [facility] [address] [place] [address] Jonathan Stack IV, MD [facility] [facility] [address] [place] [address] COLONOSCOPY DIAGNOSTIC WITH/WITHOUT SPECIMEN BRUSH/WASH 05/24/2025 11:00 AM CDT Office Visit [facility] [address] [place] [phone] Shazia Valenzuela PA-C [address] [address] Scheduled Procedures Name Priority Associated Diagnoses Date/Ti [...] documented as of this encounter Care Teams Instrument Panel Assembler Relationship Specialty Start Date End Date Shazia Valenzuela PA-C [address] [place] [address] PCP - General PHYSICIAN SWITCHGEAR REPAIRER 02/25/23 Jose Alejandro Hartmann MD 3 [facility] [address] [place], [place] [address] Consulting Physician GASTROENTEROLOGY 07/10/18 Russ John DPM 3 [facility] [address] [place], [place] [id number] Referring Physician PODIATRY/SURGERY 05/25/20 Lucio Joe MD [address] [place] [address] CARDIOVASCULAR DISEASE 10/03/20 Shazia Valenzuela PA-C [address] [place] [address], [address] [place] [address] Physician Hyperion Analyst PHYSICIAN SWITCHGEAR REPAIRER 02/25/23 Dr. Ahumada DERMATOLOGY 07/10/18 Dr. Cruz CHIROPRACTIC 07/10/18 Violette Chandler Collection Systems Administrator 02/14/22 documented as of this encounter
--- OUTSIDE RECORDS SUMMARY | 2025-02-27 22:28 | XMS_ITS | Clinical Summary ---
Author Organization [facility] [employer] Address [address] [place] [address] Care Team Providers Care Pelt Shearer Name Role Phone Unavailable Primary Care Provider Unavailabl e Source Comments [facility] [employer],non-owned Affiliates and Associated Physician Practices is amultiple site organization consisting of ambulatory clinics and hospital sitesin [place], [place], [place] and [place]. This disclosure is being madepursuant to the Care Everywhere program and may not contain all information available regarding this patient. Last updated 18.[facility] [employer] Allergies No known active allergies Medications * [...]
[2025-02-27 23:28] VITALS: PULSE 72; RESP 18; O2SAT 97
== END 2025-02-27 23:30 | disposition home or self-care (01) ==
LOC: ANHED 22:23
PROVIDERS: Emergency Provider Physician Assistant; PCP Physician Assistant
DX: S20.212A Contusion of left front wall of thorax, initial encounter (principal); S80.01XA Contusion of right knee, initial encounter; E11.9 Type 2 diabetes mellitus without complications; E78.5 Hyperlipidemia, unspecified; E03.9 Hypothyroidism, unspecified; I50.9 Heart failure, unspecified; I11.0 Hypertensive heart disease with heart failure; G47.30 Sleep apnea, unspecified; Z87.891 Personal history of nicotine dependence; Z90.710 Acquired absence of both cervix and uterus; Z79.85 Long-term (current) use of injectable non-insulin antidiabetic drugs; Z79.899 Other long term (current) drug therapy; W18.09XA Striking against other object with subsequent fall, initial encounter
CPT/HCPCS: 71046; 71100; 73564; 99284; A9270